=== PATIENT | female | born 1950 | race Caucasian/White ===

== ENCOUNTER 2020-07-08 08:26 | Outpatient (REF) | payer MEDICARE, SELFPAY ==
[2020-07-08 11:20] LABS: MANUAL DIFF FLAG NO
[2020-07-08 11:29] LABS: Basophils Percent Auto 0.4 % (0-2); Eosinophils Absolute Auto 0.2 X10*3/uL (0.0-0.4); Eosinophils Percent Auto 3.9 % (0-4); Hematocrit 45.3 % (37-47); Hemoglobin 14.5 g/dl (12.0-16.0); Imm Gran Abs Auto 0.02 X10*3/uL (0.00-0.03); Imm Gran Pct Auto 0.4 % (0.0-0.4); Lymphocytes Absolute Auto 1.6 X10*3/uL (1.2-4.9); Lymphocytes Percent Auto 28.4 % (20-40); Mean Corpuscular Hemoglobin 29.4 pg (27.0-33.0); Mean Corpuscular Volume 91.7 fL (80-98); Mean Platelet Volume 9.4 fL (9.4-12.3); Monocytes Absolute Auto 0.5 X10*3/uL (0.1-1.2); Monocytes Percent Auto 8.8 % (2-11); Neutrophils Absolute Auto 3.3 X10*3/uL (2.0-8.3); Neutrophils Percent Auto 58.1 % (45-73); Platelet Count 238 X10*3/uL (160-400); Red Blood Count 4.94 X10*6/uL (4.20-5.50); Red Cell Distribution Width 13.3 % (11.0-16.0); White Blood Count 5.6 X10*3/uL (4.8-10.8)
[2020-07-08 11:58] LABS: Alanine Aminotransferase 34 U/L (0-31); Albumin Level 4.4 g/dL (3.5-5.0); Alkaline Phosphatase 96 U/L (39-117); Anion Gap 14 (12-20); Aspartate Amino Transferase 21 U/L (5-31); Bilirubin Total 0.7 mg/dL (0.0-1.0); Blood Urea Nitrogen 8 mg/dL (9-16); Calcium 9.8 mg/dL (8.4-10.2); Carbon Dioxide 29 mmol/L (22-29); Chloride 106 mmol/L (96-108); Estimated Glomerular Filt Rate > 60; Glucose Random 123 mg/dL (60-115); Potassium 4.7 mmol/l (3.3-5.1); Sodium 144 mmol/L (135-145); Total Protein 7.3 g/dL (6.5-8.0)
[2020-07-08 12:02] LABS: Estimated Average Glucose 146 mg/dL; Hemoglobin A1c % 6.7 %
== END 2020-07-08 08:27 | disposition home or self-care (01) ==
LOC: HO.HMGCLDS 08:26
PROVIDERS: PCP Internal Medicine; Visit Provider Internal Medicine
DX: E78.2 Mixed hyperlipidemia (principal); I10 Essential (primary) hypertension; E11.9 Type 2 diabetes mellitus without complications
CPT/HCPCS: 36415; 80053; 83036; 83735; 85025

== ENCOUNTER 2020-09-15 11:53 | Outpatient (REF) | payer MEDICARE, SELFPAY ==
[2020-09-15 14:42] LABS: Albumin Level 4.4 g/dL (3.5-5.0); Calcium 9.9 mg/dL (8.4-10.2); Estimated Glomerular Filt Rate > 60
[2020-09-15 15:05] LABS: Vitamin D 25-OH Total 44.1 ng/mL (>30)
[2020-09-16 15:16] LABS: Calcium, Ionized 5.5 mg/dL (4.8-5.6)
[2020-09-16 15:42] LABS: Calcium (PTHI) 10.4 mg/dL (8.6-10.4); PTHI 83 pg/mL (14-64)
== END 2020-09-15 11:54 | disposition home or self-care (01) ==
LOC: HO.HMGCLDS 11:53
PROVIDERS: PCP Internal Medicine; Visit Provider Internal Medicine
DX: E21.3 Hyperparathyroidism, unspecified (principal); E55.9 Vitamin D deficiency, unspecified; M85.80 Other specified disorders of bone density and structure, unspecified site
CPT/HCPCS: 36415; 82040; 82306; 82310; 82330; 82565; 83970

== ENCOUNTER 2020-11-29 08:34 | Outpatient (REF) | payer MEDICARE, SELFPAY ==
[2020-11-29 11:14] LABS: MANUAL DIFF FLAG NO
[2020-11-29 11:15] LABS: Glucose Urine UA NEG (NEG); Leukocyte Esterase Urine 2+ (NEG); Nitrite Urine NEG (NEG); Urine Blood NEG (NEG); Urine Ketones NEG (NEG); Urine Protein NEG (NEG-TRACE)
[2020-11-29 11:16] LABS: Appearance Urine HAZY; Color Urine STRAW
[2020-11-29 11:31] LABS: Amorphous Sediment Urine 1+ /LPF; Bacteria Urine TRACE /LPF; Calcium Oxalate Crystals Urine 3+ /LPF; RBC Urine 0 /HPF (0); Renal Epithelial Cells Urine TRACE /LPF; Squamous Epithelial Cell Urine TRACE /LPF
[2020-11-29 11:35] LABS: Basophils Percent Auto 0.3 % (0-2); Eosinophils Absolute Auto 0.2 X10*3/uL (0.0-0.4); Eosinophils Percent Auto 2.7 % (0-4); Hematocrit 44.7 % (37-47); Hemoglobin 14.7 g/dl (12.0-16.0); Imm Gran Abs Auto 0.02 X10*3/uL (0.00-0.03); Imm Gran Pct Auto 0.3 % (0.0-0.4); Lymphocytes Absolute Auto 1.8 X10*3/uL (1.2-4.9); Lymphocytes Percent Auto 24.5 % (20-40); Mean Corpuscular HGB Conc 32.9 g/dl (31.0-35.0); Mean Corpuscular Volume 91.2 fL (80-98); Mean Platelet Volume 9.3 fL (9.4-12.3); Monocytes Absolute Auto 0.6 X10*3/uL (0.1-1.2); Monocytes Percent Auto 8.4 % (2-11); Neutrophils Absolute Auto 4.6 X10*3/uL (2.0-8.3); Neutrophils Percent Auto 63.8 % (45-73); Platelet Count 233 X10*3/uL (160-400); Red Cell Distribution Width 13.1 % (11.0-16.0); White Blood Count 7.1 X10*3/uL (4.8-10.8)
[2020-11-29 11:38] LABS: Estimated Average Glucose 143 mg/dL; Hemoglobin A1c % 6.6 %
[2020-11-29 11:41] LABS: Creatinine Urine 80.73 mg/dL; Microalbum/Creatinine Ratio Ur 32.2 ug/mg cr; Total Protein Urine Random 16 mg/dL (<12)
[2020-11-29 11:58] LABS: Thyroid Stimulating Hormone 2.36 uIU/mL (0.32-4.0)
[2020-11-29 11:59] LABS: Alanine Aminotransferase 25 U/L (0-31); Albumin Level 4.5 g/dL (3.5-5.0); Alkaline Phosphatase 109 U/L (39-117); Anion Gap 14 (12-20); Aspartate Amino Transferase 18 U/L (5-31); Bilirubin Total 0.5 mg/dL (0.0-1.0); Blood Urea Nitrogen 8 mg/dL (9-16); Calcium 10.3 mg/dL (8.4-10.2); Carbon Dioxide 29 mmol/L (22-29); Chloride 104 mmol/L (96-108); Cholesterol 136 mg/dL; Estimated Glomerular Filt Rate > 60; Glucose Fasting 121 mg/dL (60-99); HDL Cholesterol 55 mg/dL; LDL Cholesterol Calculated 49 mg/dl; Potassium 4.2 mmol/L (3.3-5.1); Sodium 143 mmol/L (135-145); Total Protein 7.6 g/dL (6.5-8.0); Triglycerides 163 mg/dL
[2020-11-29 12:04] LABS: Vitamin B12 286 pg/mL (200-900)
== END 2020-11-29 08:35 | disposition home or self-care (01) ==
LOC: HO.HMGCLDS 08:34
PROVIDERS: Visit Provider Internal Medicine
DX: I10 Essential (primary) hypertension (principal); E11.9 Type 2 diabetes mellitus without complications; R53.81 Other malaise; R53.83 Other fatigue; E78.2 Mixed hyperlipidemia
CPT/HCPCS: 36415; 80053; 80061; 81001; 82043; 82607; 83036; 84156; 84443; 85025

== ENCOUNTER → 2021-01-24 12:54 | Outpatient (BNVA) | payer MEDICARE, SELFPAY | PROVIDERS: PCP Internal Medicine; Referring Provider Internal Medicine; Visit Provider Internal Medicine Cardiovascular Disease | DX: I20.8 Other forms of angina pectoris (principal); I25.10 Atherosclerotic heart disease of native coronary artery without angina pectoris | CPT/HCPCS: 93005; 99212 ==

== ENCOUNTER 2021-04-25 14:20 | Outpatient (REF) | payer MEDICARE, SELFPAY | END 2021-04-25 14:21 | disposition home or self-care (01) | LOC: HO.LNP 14:20 | PROVIDERS: Visit Provider Internal Medicine | DX: Z20.822 Contact with and (suspected) exposure to COVID-19 (principal); J06.9 Acute upper respiratory infection, unspecified | CPT/HCPCS: U0003; U0005 ==

== ENCOUNTER 2021-05-08 12:29 | Emergency (ER) | payer MEDICARE, SELFPAY ==
--- NOTE | ~2021-05-08 | XR_ITS ---
EXAMINATION: LEFT HAND AND WRIST X-RAY CLINICAL INFORMATION: Post reduction COMPARISON: Previous x-ray from earlier the same day TECHNIQUE: 3 views of the left hand and wrist FINDINGS: There is an impacted transverse fracture of the left distal radius. There is dorsal angulation of the distal radius with respect to the more proximal shaft. Alignment appears unchanged. There is a comminuted minimally displaced ulnar styloid fracture that appears unchanged. The bones are osteopenic. There are degenerative changes at the first LONGTERM joint and trapezoid trapezium scaphoid joints. There are are vascular clips in the forearm. There is soft tissue swelling adjacent to the fractures. There is a new overlying cast or splint. XR/XR hand wrist LT IMPRESSION: Left distal radius and ulnar styloid fractures. No appreciable change from earlier exam.
--- NOTE | ~2021-05-08 | XR_ITS ---
EXAMINATION: LEFT HAND/WRIST. CLINICAL INFORMATION: Fall. COMPARISON: None TECHNIQUE: 4 views. FINDINGS: There is a distal radial fracture with dorsal angulation. No dislocation. Also visualized is displaced ulnar styloid process fracture. There are surgical akila along the medial radius from previous vascular intervention. There is moderate soft tissue swelling. XR/XR hand wrist LT IMPRESSION: Colles fracture with dorsal angulation. Displaced ulnar styloid process fracture. Moderate wrist soft tissue swelling.
[2021-05-08 13:04] VITALS: BP 123/48; BP 154/77; PULSE 74; PULSE 82; RESP 18; TEMP 36.6; O2SAT 92; O2SAT 93; BMI 30.8
[2021-05-08] MEDS: Ondansetron ODT 4 MG TAB.RAPDIS TRANSLINGU (13:09)
--- NOTE | 2021-05-08 13:33 | PC.NURSE ---
patient arrives to ED from home with . Patient called ambulance for and while assisting with and EMS, patient tripped and fell back on her wrist. L. wrist deformity. EMS gave patient pain medication, patient now nauseous with vomiting. ODT zofran given with good effect. Patient resting safely.
[2021-05-08] MEDS: oxyCODONE HCl Immed Release 5 MG TABLET PO (14:40)
[2021-05-08 14:43] VITALS: BP 156/56; PULSE 88; RESP 18; TEMP 36.1; O2SAT 94
[2021-05-08] MEDS: Lidocaine HCl 1 % MPF 5 ML VIAL SUBCUT (15:10)
--- NOTE | 2021-05-08 15:50 | ED_ITS ---
HPI - Extremity Problem General Chief complaint: Extremity Injury, Upper Stated complaint: MECH FALL L WRIST FX, +COVID Time Seen by Provider: 05/08/21 12:46 Source: patient Mode of arrival: ambulatory History of Present Illness HPI Narrative: 70-year-old female with a past medical history of CAD, HTN, CABG, cardiac catheterization, hyperlipidemia, presenting to the ED complaining of left wrist pain, deformity, and swelling s/p trip and fall at home with outstretched hand while assisting her with EMS. Reports fell backwards on left arm, denies head trauma or LOC. Reports associated paresthesias in left hand. Denies injury to the area MD Complaint: extremity pain and extremity swelling Related Data Home Medications Medication Instructions Recorded Confirmed alprazolam 1 mg tablet 1 mg PO BID PRN 01/24/21 01/24/21 amlodipine 5 mg tablet 5 mg PO DAILY 01/24/21 01/24/21 ascorbate calcium (vitamin C) 500 500 mg PO BID 01/24/21 01/24/21 mg tablet aspirin 81 mg tablet,delayed 81 mg PO DAILY 01/24/21 01/24/21 release (Adult Aspirin Regimen) losartan 50 mg tablet 50 mg PO BID 01/24/21 01/24/21 metformin 500 mg tablet,extended 500 mg PO BID 01/24/21 01/24/21 release 24 hr metoprolol tartrate 25 mg tablet 25 mg PO BID 01/24/21 01/24/21 rosuvastatin 20 mg tablet 20 mg PO BEDTIME 01/24/21 01/24/21 Previous Rx's Medication Instructions Recorded isosorbide mononitrate 30 mg 30 mg PO DAILY #90 tab 11/11/20 tablet,extended release 24 hr azithromycin 250 mg tablet See Rx Instructions PO .COMPLEX #6 04/25/21 (Zithromax) tab hydrocodone 5 mg-acetaminophen 325 1 tab PO Q8H PRN 3 Days #9 tab 05/08/21 mg tablet ibuprofen 800 mg tablet 800 mg PO Q8H PRN #14 tab 05/08/21 Allergies Allergy/AdvReac Type Severity Reaction Status Date / Time cimetidine [From [facility]] Allergy Unknown HIVES Verified 04/25/21 10:11 Review of Systems Review of Systems: Constitutional: No Fever, No Chills ENT/Mouth: No Ear Pain, No Nasal Congestion, No sore throat, No Rhinorrhea, No Swallowing Difficulty Cardiovascular: No Chest Pain, No SOB Respiratory: No Cough Gastrointestinal: No Nausea, No Vomiting, No Constipation, No Abdominal pain Genitourinary: No Dysuria, No Urinary Frequency, No Flank Pain Musculoskeletal: + joint pain, No Myalgias, + Joint Swelling Skin: No Skin Lesions, No rash Neuro: No Weakness, No Numbness, No Paresthesias Yes all other systems are reviewed and are negative [facility] Past Medical History Attestation statement: The following information was validated with the patient. Medical History CAD (coronary artery disease) Exertional angina HTN (hypertension) Hyperlipidemia Surgical History Hx of CABG Hx of cardiac cath Hx of colonoscopy Family History Family History Father CVD (cardiovascular disease) Mother No problems noted. Brother CVD (cardiovascular disease) Social History Social History Advance Directives: No Advance Directives Information Provided: No Physical Exam Vital Signs: Vital Signs: Last Vital Signs Temp 97 F 05/08/21 14:43 Pulse 88 05/08/21 14:43 Resp 18 05/08/21 14:43 BP 156/56 H 05/08/21 14:43 Pulse Ox 94 05/08/21 14:43 Body Mass Index 30.8 Const: General: cooperative and healthy appearing Orientation/conscious ness: patient oriented x3 Limitations: no limitations HENMT: Head: Yes normal to inspection Ears: hearing grossly normal bilaterally General nose exam: Normal external nose present Face and sinus: Yes normal facial exam Eyes: General: appearance normal, both eyes and all related structures EOM: EOMs intact bilaterally Neck: Neck: Yes normal visual inspection and Yes no meningeal signs Resp: Effort & Inspection: normal respiratory effort and no respiratory distress Cardio: Rate: regular rate Peripheral pulses: radial pulses present GI: Inspection: Yes normal to inspection Palpation (GI): Soft to palpation Skin: Rashes: no rashes Wounds: no wounds Neuro: General: patient oriented x3 and no meningeal signs Gait exam (N euro): Normal gait present Extrem: Other: Left wrist with notable deformity/swelling and tenderness to palpation neurovascularly intact. Sensation intact to light touch. Left elbow nontender. Left shoulder nontender Course Course Course Narrative: XR hand wrist LT IMPRESSION: Colles fracture with dorsal angulation. Displaced ulnar styloid process fracture. Moderate wrist soft tissue swelling. -155--hand held in traction with [place] finger traps with weights then reduction attempted > sugar-tong splint applied & sling applied XR hand wrist LT IMPRESSION: Left distal radius and ulnar styloid fractures. No appreciable change from earlier exam. --discussed with orthopedics, Dr. España, patient follow-up in Orthopedic fracture Clinic tomorrow or Saturday MDM - Extremity (Nontraumatic) MDM Narrative Medical decision making narrative: 70-year-old female with a past medical h istory of CAD, HTN, CABG, cardiac catheterization, hyperlipidemia, presenting to the ED complaining of left wrist pain, deformity, and swelling s/p trip and fall at home with outstretched hand while assisting her with EMS. On exam VSS, NAD, physical exam as above, concern for fracture. Will obtain x-rays Discharge Plan Discharge Clinical Impression: Distal radius fracture, left Qualifiers: Encounter type: initial encounter Fracture type: closed Fracture morphology: unspecified fracture morphology Qualified Code(s): S52.502A - Unspecified fracture of the lower end of left radius, initial encounter for closed fracture Ulna styloid fracture, closed Qualifiers: Encounter type: initial encounter Fracture alignment: displaced Laterality: left Qualified Code(s): S52.612A - Displaced fracture of left ulna styloid process, initial encounter for closed fracture Patient Disposition: Home, Self-Care Instructions: Wrist Fracture in Adults (ED) Additional Instructions: You have a fracture of your wrist You need to follow-up in the Orthopedic fracture Clinic tomorrow or Saturday, call to make an appointment Ice and elevate your arm Treat splint like a cast, do not get wet, keep dry, keep clean Ibuprofen will help with pain/inflammation [place] as an opiate pain medication, take only when pain is severe for the next 3 days If her pain persists or worsens/becomes unbearable, your fingers become very swollen/numb, please return to the ED Prescriptions: New ibuprofen 800 mg tablet 800 mg PO Q8H PRN (Reason: pain) Qty: 14 RF: 0 hydrocodone-acetaminophen 5-325 mg tablet 1 tab PO Q8H PRN (Reason: pain, severe) 3 Days Qty: 9 RF: 0 No Action isosorbide mononitrate 30 mg tablet extended release 24 hr 30 mg PO DAILY Qty: 90 RF: 3 azithromycin [Zithromax] 250 mg tablet See Rx Instructions PO .COMPLEX Qty: 6 RF: 0 losartan 50 mg tablet 50 mg PO BID RF: 0 metoprolol tartrate 25 mg tablet 25 mg PO BID RF: 0 amlodipine 5 mg tablet 5 mg PO DAILY RF: 0 alprazolam 1 mg tablet 1 mg PO BID PRNRF: 0 rosuvastatin 20 mg tablet 20 mg PO BEDTIME RF: 0 metformin 500 mg tablet extended release 24 hr 500 mg PO BID RF: 0 aspirin [Adult Aspirin Regimen] 81 mg tablet,delayed release (DR/EC) 81 mg PO DAILY RF: 0 ascorbate calcium (vitamin C) 500 mg tablet 500 mg PO BID RF: 0 Referrals: Prasanth España MD [Physician] - 1 day
== END 2021-05-08 18:51 | disposition home or self-care (01) ==
PROVIDERS: Emergency Provider Emergency Medicine Emergency Medical Services; PCP Internal Medicine
DX: S52.502A Unspecified fracture of the lower end of left radius, initial encounter for closed fracture (principal); S52.612A Displaced fracture of left ulna styloid process, initial encounter for closed fracture; M25.532 Pain in left wrist; I25.10 Atherosclerotic heart disease of native coronary artery without angina pectoris; I10 Essential (primary) hypertension; W01.0XXA Fall on same level from slipping, tripping and stumbling without subsequent striking against object, initial encounter; Y93.9 Activity, unspecified; Y92.9 Unspecified place or not applicable; Y99.9 Unspecified external cause status; Z79.899 Other long term (current) drug therapy
CPT/HCPCS: 29105; 73110; 73130; 99284

== ENCOUNTER → 2021-05-09 13:52 | Outpatient (BNVA) | payer MEDICARE, SELFPAY | PROVIDERS: Visit Provider Orthopaedic Surgery | DX: S52.502A Unspecified fracture of the lower end of left radius, initial encounter for closed fracture (principal) | CPT/HCPCS: 99202 ==

== ENCOUNTER 2021-05-11 05:56 | Day surgery (SDC) | payer MEDICARE, SELFPAY ==
--- NOTE | 2021-05-10 11:49 | HO.ANESPROP2 ---
Documented by User: Nessa Damon NP 05/10/21 11:51 HPI - Anesthesia Eval Consult details Narrative: 70yo F for Left Radius Distal Fracture ORIF Cardiac cleared at [facility] Active Problems Active Problems: All Active Problems (Updated 05/09/21 @ 14:58 by Shala Purdy MD) Distal radius fracture, left (Acute) Upper respiratory tract infection (Acute) Hyperlipidemia (Acute) HTN (hypertension) (Acute) CAD (coronary artery disease) (Acute) Exertional angina (Acute) Past Medical History Medical History (Updated 05/11/21 @ 06:29 by Cami Rahman RN) CAD (coronary artery disease) Diabetes Exertional angina HTN (hypertension) Hyperlipidemia Family History Family History Father CVD (cardiovascular disease) Mother No problems noted. Brother CVD (cardiovascular disease) Surgical History Surgical History Hx of CABG Hx of cardiac cath Hx of colonoscopy Social History Social History Patient Tobacco Use Status: Never used Tobacco Use of substances other than those prescribed or required for medical reasons: No Are you DNR?: Yes Advance Directives: No Advance Directives Information Provided: Yes Meds Allergies Allergy/AdvReac Type Severity Reaction Status Date / Time cimetidine [From [facility]] Allergy Unknown HIVES Verified 04/25/21 10:11 Home Medications Medication Instructions Recorded Confirmed Last Taken Type alprazolam 1 mg tablet 1 mg PO BID PRN 01/24/21 01/24/21 Unknown History amlodipine 5 mg tablet 5 mg PO DAILY 01/24/21 01/24/21 Unknown History ascorbate calcium (vitamin C) 500 500 mg PO BID 01/24/21 01/24/21 Unknown History mg tablet aspirin 81 mg tablet,delayed 81 mg PO DAILY 01/24/21 01/24/21 Unknown History release (Adult Aspirin Regimen) losartan 50 mg tablet 50 mg PO BID 01/24/21 01/24/21 Unknown History metformin 500 mg tablet,extended 500 mg PO BID 01/24/21 01/24/21 Unknown History release 24 hr metoprolol tartrate 25 mg tablet 25 mg PO BID 01/24/21 01/24/21 Unknown History rosuvastatin 20 mg tablet 20 mg PO BEDTIME 01/24/21 01/24/21 Unknown History Exam Exam Date and Time: May 10, 2021 1149 Pertinent Lab Results Pertinent Lab Results: Laboratory Tests 11/29/20 11/29/20 08:45 08:45 WBC 7.1 Hgb 14.7 Hct 44.7 Plt Count 233 Sodium 143 Potassium 4.2 Chloride 104 Carbon Dioxide 29 BUN 8 L Creatinine 0.64 Narrative Narrative: EKG 01/2021 sinus bradycardia with incomplete right bundle-branch block otherwise normal EKG Assessment and Plan Assessment Anesthesia Assessment: Chart Reviewed Documented by User: Jesus Paz MD 05/11/21 08:14 [facility] Past Medical History Medical History (Updated 05/11/21 @ 06:29 by Cami Rahman RN) CAD (coronary artery disease) Diabetes Exertional angina HTN (hypertension) Hyperlipidemia Family History Family History Father CVD (cardiovascular disease) Mother No problems noted. Brother CVD (cardiovascular disease) Family history of problems with anesthesia: No Surgical History Surgical History Hx of CABG Hx of cardiac cath Hx of colonoscopy History of Problems with Anesthesia: No Social History Social History Patient Tobacco Use Status: Never used Tobacco Use of substances other than those prescribed or required for medical reasons: No Are you DNR?: Yes Advance Directives: No Advance Directives Information Provided: Yes Meds Allergies Allergy/AdvReac Type Severity Reaction Status Date / Time cimetidine [From [facility]] Allergy Unknown HIVES Verified 04/25/21 10:11 Home Medications Medication Instructions Recorded Confirmed Last Taken Type alprazolam 1 mg tablet 1 mg PO BID PRN 01/24/21 01/24/21 Unknown History amlodipine 5 mg tablet 5 mg PO DAILY 01/24/21 01/24/21 Unknown History ascorbate calcium (vitamin C) 500 500 mg PO BID 01/24/21 01/24/21 Unknown History mg tablet aspirin 81 mg tablet,delayed 81 mg PO DAILY 01/24/21 01/24/21 Unknown History release (Adult Aspirin Regimen) losartan 50 mg tablet 50 mg PO BID 01/24/21 01/24/21 Unknown History metformin 500 mg tablet,extended 500 mg PO BID 01/24/21 01/24/21 Unknown History release 24 hr metoprolol tartrate 25 mg tablet 25 mg PO BID 01/24/21 01/24/21 Unknown History rosuvastatin 20 mg tablet 20 mg PO BEDTIME 01/24/21 01/24/21 Unknown History Exam Airway TM Dist: >3cm Neck ROM: Full Denture: Upper Partial: Lower Heart: RRR Assessment and Plan Assessment Anesthesia Assessment: Anesthesia Plan Discussed Final Anesthetic Review Family History of Problems with Anesthesia: No History of Problems with Anesthesia: No NPO: Yes ASA Class: III Final Preanesthetic Review: No Changes in Pt Med Stat, Meds/Allgs Chart Reviewed, Consent Obtained/Reviewed and Anes Risks/Benef Reviewed Patient Risk: Intermediate Procedure Risk: Low Anesthetic Plan Anesthetic Plan: GA and Regional Block Disposition: Standard PACU
[2021-05-11] VITALS (11 sets, daily range): BP systolic 102–169; BP diastolic 36–55; PULSE 57–78; RESP 16; TEMP 36.2–37.1; O2SAT 89–97; BMI 30.2
--- NOTE | ~2021-05-11 | FL_ITS ---
EXAMINATION: XR FLUOROSCOPY WITH IMAGES CLINICAL INFORMATION: Distal radial fracture. COMPARISON: None. TECHNIQUE: Fluoroscopy performed by Dr. Gurwinder Last.. Fluoroscopy time: 63.5 seconds DAP: [id number] Images: 2 FINDINGS: The distal radial fracture is alignment status post stabilized with volar metallic plate and screws with a fracture fragment in alignment. There are surgical kiala along the radial aspect from previous intervention. FL/FL guidance in OR IMPRESSION: Stabilized distal radial fracture in alignment status post ORIF with volar metallic plate and screws.
[2021-05-11 06:37] LABS: Glucose, Whole Blood 135 mg/dL (60-115)
[2021-05-11] MEDS: Lactated Ringers 1,000 ML 100 ML IVCONT (06:46)
--- NOTE | 2021-05-11 07:53 | MHC.SHP ---
Pre-Procedural Eval Section A Date of Service: 05/11/21 The patient is an INPATIENT: No Changes since office visit: No Cold of Flu in the past 2 weeks, No New Medical Problems, No Changes in Medication and No Patient answered all questions The History & Physical has been completed within 30 days and I have reviewed it.: Yes Section B Chief Complaint: fx of lower end left radius Allergies: Allergies Allergy/AdvReac Type Severity Reaction Status Date / Time [facility] Allergy Unknown HIVES Verified 04/25/21 10:11 Plan I have reviewed the history and physical and performed a pertinent physical examination on my patient. No changes have occurred unless specified.
--- NOTE | 2021-05-11 07:53 | P.OP_ITS ---
Operative Note Operative Note Date of Service: 05/11/21 Narrative: Operative Note Narrative: Preop diagnosis: 1. Left Distal radius fracture Postop diagnosis: Same Procedure: 1. Left Distal radius fracture open reduction internal fixation, two-part intra-articular Surgeon: Shala Purdy MD Anesthesia: Mac plus regional block Findings: Intra-articular split between the radial styloid and the lunate facet. Implants: A 3 hole standard Accu Med volar locking plate, with 5 X 2.3 mm locking pegs/screws, and 3 3.5 mm cortical screws Tourniquet time: 55 minutes EBL: 5.0 ml Specimen: None Drains: None Complications: None Disposition: Brought to the recovery room in stable condition Plan: Follow-up in 10-14 days for wound check, suture removal and postop radiographs The patient will be placed in a volar wrist splint. Encouraged no lifting of anything heavier than a cell phone. Please encourage active and passive range of motion of the digits. Follow-up at 4-5 weeks postop for repeat radiographs. Indications: The patient is a 70 year old woman with a left distal radius fracture . The risks and benefits of operative treatment, including but not limited to risk of damage to blood vessels, nerves, tendons, infection, recurrence, persistent pain or numbness, incomplete resolution of preoperative symptoms, or need for further surgery were discussed with the patient and they wished to proceed with surgery. Procedure: Once consent was obtained patient was brought back to the operating suite and placed in the operating table in a supine position. A regional block was performed by the anesthesia team. Perioperative antibiotics and anesthesia was administered by the anesthesia team. A tourniquet was applied to the proximal aspect of the left upper extremity and the limb was prepped and draped in a standard surgical fashion. The limb was elevated exsanguinated with Esmarch bandage and the tourniquet inflated to 250 mm of mercury for a total tourniquet time of 55 minutes. The FluoroScan was used throughout the case to assess our reduction, and facilitate implant placement. A gentle closed reduction was 1st performed on the patient's left distal radius fracture. Was assessed radiographically before proceeding with the reduction internal fixation. I then made an 8 cm longitudinal incision over the distal aspect of the flexor carpi radialis tendon. The incision was made through the skin to the subcutaneous tissue using a 15. Blade. Then carefully dissected down to flexor carpi radialis tendon she tenotomy scissors. The FCR tendon sheath was then incised longitudinally using tenotomy scissors under direct visualization. The FCR tendon was then retracted ulnarly. I then made a longitudinal incision in the volar forearm fascia through the floor of FCR tendon sheath using tenotomy scissors under direct vis ualization. I identified the interval between the radial artery and the flexor tendons. This interval was developed further with my index finger, releasing some of the muscular fibers of the flexor pollicis longus. A dull weatlander retractor was then placed. I then created an ulnarly based flap of the pronator quadratus by releasing the radial and distal edges using a 15. Blade. A Espinal elevator was used to elevate the pronator quadratus from the volar surface of the distal radius. This then revealed to us our distal radius fracture. Some of the pronator quadratus muscle was caught in the fracture. This was cleared using small rongeur. There was also an intra-articular longitudinal split between the radial styloid and the lunate facet. An open reduction was then performed on our distal radius fracture. I then placed a short standard 3 hole Accu Med volar locking plate on the volar surface of the distal radius. I placed a single K-wire through the distal aspect of the plate and into the distal radius. This was assessed using fluoroscopic images. I was satisfied with the placement of our plate. I then placed 5 X 2.3 mm locking screws/pegs in the distal aspect of the plate and distal radius by 1st drilling bicortically with a 1.8 mm drill bit, measuring with a depth gauge, and placing the appropriate length locking screws/pegs. The placement of our plate and screws was then assessed again using fluoroscopic images. The once satisfied with the placement of the volar locking plate and screws on the distal aspect of the distal radius, the plate was then reduced to the shaft of the radius. I then placed 3 3.5 mm cortical screws to the proximal aspect of the plate and into the shaft of the radius. This was done by 1st drilling bicortically with a 2.8 mm drill bit, measuring with a depth gauge, and placing the appropriate length screw. Final radiographs were then obtained. The DRUJ was assessed and found to be stable on exam. I was satisfied with our reduction and placement of all implants. At this point the wound was irrigated with normal saline. The pronator quadratus was reduced back over the volar locking plate using some 3-0 Vicryl suture material. The tourniquet was then deflated and hemostasis was obtained with a brief period of local pressure and bipolar monopolar electrocautery. The subcutaneous layer was then reapproximated using some 4-0 Vicryl suture, and the skin edges were reapproximated using some 5 0 Prolene suture. The wound was then infiltrated with some 1% lidocaine with epinephrine postop pain control. A sterile dressing and a short dorsal splint allowing for active flexion and extension of the digits was applied. The patient appears to have tolerated the procedure well and with no complications. All digits were well vascularized conclusion of the case.
[2021-05-11 09:58] LABS: Glucose, Whole Blood 142 mg/dL (60-115)
== END 2021-05-11 13:15 | disposition home or self-care (01) ==
LOC: HO.SSS 05:57
PROVIDERS: PCP Internal Medicine; Visit Provider Orthopaedic Surgery
PROC: (CPT 25608; principal; 2021-05-11 07:30)
DX: S52.572A Other intraarticular fracture of lower end of left radius, initial encounter for closed fracture (principal); I10 Essential (primary) hypertension; I25.118 Atherosclerotic heart disease of native coronary artery with other forms of angina pectoris; Z79.82 Long term (current) use of aspirin; Z79.899 Other long term (current) drug therapy; W19.XXXA Unspecified fall, initial encounter; Y93.9 Activity, unspecified; Y92.9 Unspecified place or not applicable; Y99.9 Unspecified external cause status
CPT/HCPCS: 25608; 82947; C1713; C1769; J0690; J1100; J2250; J2370; J2405; J3010

== ENCOUNTER 2021-05-17 07:49 | Outpatient (REF) | payer MEDICARE, SELFPAY ==
[2021-05-17 11:28] LABS: MANUAL DIFF FLAG NO
[2021-05-17 11:43] LABS: Basophils Percent Auto 0.2 % (0-2); Eosinophils Absolute Auto 0.1 X10*3/uL (0.0-0.4); Eosinophils Percent Auto 2.2 % (0-4); Hematocrit 41.3 % (37-47); Hemoglobin 13.3 g/dl (12.0-16.0); Imm Gran Abs Auto 0.01 X10*3/uL (0.00-0.03); Imm Gran Pct Auto 0.2 % (0.0-0.4); Lymphocytes Absolute Auto 1.2 X10*3/uL (1.2-4.9); Lymphocytes Percent Auto 24.8 % (20-40); Mean Corpuscular HGB Conc 32.2 g/dl (31.0-35.0); Mean Corpuscular Volume 90.2 fL (80-98); Mean Platelet Volume 9.1 fL (9.4-12.3); Monocytes Absolute Auto 0.4 X10*3/uL (0.1-1.2); Monocytes Percent Auto 7.5 % (2-11); Neutrophils Absolute Auto 3.2 X10*3/uL (2.0-8.3); Neutrophils Percent Auto 65.1 % (45-73); Platelet Count 289 X10*3/uL (160-400); Red Blood Count 4.58 X10*6/uL (4.20-5.50); Red Cell Distribution Width 13.7 % (11.0-16.0); White Blood Count 4.9 X10*3/uL (4.8-10.8)
[2021-05-17 12:06] LABS: Estimated Average Glucose 146 mg/dL; Hemoglobin A1c % 6.7 %
[2021-05-17 12:18] LABS: Alanine Aminotransferase 23 U/L (0-31); Albumin Level 4.2 g/dL (3.5-5.0); Alkaline Phosphatase 99 U/L (39-117); Anion Gap 14 (12-20); Aspartate Amino Transferase 19 U/L (5-31); Bilirubin Total 0.8 mg/dL (0.0-1.0); Blood Urea Nitrogen 8 mg/dL (9-16); Calcium 10.1 mg/dL (8.4-10.2); Carbon Dioxide 23 mmol/L (22-29); Chloride 108 mmol/L (96-108); Estimated Glomerular Filt Rate > 60; Glucose Random 140 mg/dL (60-115); Potassium 4.3 mmol/L (3.3-5.1); Sodium 141 mmol/L (135-145); Total Protein 7.2 g/dL (6.5-8.0)
[2021-05-17 12:32] LABS: Vitamin B12 469 pg/mL (200-900)
== END 2021-05-17 07:50 | disposition home or self-care (01) ==
LOC: HO.HMGCLDS 07:49
PROVIDERS: PCP Internal Medicine; Visit Provider Internal Medicine
DX: I10 Essential (primary) hypertension (principal); E11.9 Type 2 diabetes mellitus without complications; E53.8 Deficiency of other specified B group vitamins
CPT/HCPCS: 36415; 80053; 82607; 83036; 85025

== ENCOUNTER 2021-05-23 12:16 | Outpatient (REF) | payer MEDICARE, SELFPAY ==
--- NOTE | ~2021-05-23 | XR_ITS ---
EXAMINATION: XR WRIST, LEFT CLINICAL INFORMATION: Fracture COMPARISON: Previous x-ray most recent April 2020 TECHNIQUE: PA, lateral, and oblique views of the left wrist. FINDINGS: There is a plate and screws transfixing the left distal radius fracture. Orthopedic hardware appears unchanged. Fracture is still seen. No appreciable bony callus formation is seen. There is a minimally displaced ulnar styloid fracture that is unchanged. There are degenerative changes at the first CORRECTION joint and trapezoid trapezium scaphoid joints. There surgical clips in the radial volar forearm. XR/XR wrist LT min 3V IMPRESSION: ORIF of left distal radius fracture. Distal radius and ulnar styloid fractures appear unchanged.
== END 2021-05-23 12:17 | disposition home or self-care (01) ==
LOC: HO.HOSX 12:16
PROVIDERS: PCP Internal Medicine; Visit Provider Orthopaedic Surgery
DX: S52.502D Unspecified fracture of the lower end of left radius, subsequent encounter for closed fracture with routine healing (principal)
CPT/HCPCS: 73110; 99212

== ENCOUNTER 2021-06-27 08:57 | Outpatient (REF) | payer MEDICARE, SELFPAY ==
--- NOTE | ~2021-06-27 | XR_ITS ---
EXAMINATION: XR WRIST, LEFT CLINICAL INFORMATION: Left wrist pain. Status post fracture. COMPARISON: 05/23/2021 and studies dating back to 05/08/2021. TECHNIQUE: PA, lateral, and oblique views of the left wrist. FINDINGS: There is no change in the appearance of hardware for fixation of the distal left radial fracture. There are some mild periosteal reaction present. There appears to be some degree of bony union of fracture fragments. No change in alignment is noted. No change in appearance of the ulnar styloid fracture is seen. Vascular clips are again noted about the volar radial aspect of the forearm. XR/XR wrist LT min 3V IMPRESSION: Healing distal radial fracture with no change in alignment or evidence of hardware fracture. No change in the appearance of displaced ulnar styloid fracture.
== END 2021-06-27 08:58 | disposition home or self-care (01) ==
LOC: HO.HOSX 08:57
PROVIDERS: Visit Provider Orthopaedic Surgery
DX: S52.502D Unspecified fracture of the lower end of left radius, subsequent encounter for closed fracture with routine healing (principal)
CPT/HCPCS: 73110; 99212

== ENCOUNTER 2021-09-14 09:23 | Outpatient (REF) | payer MEDICARE, SELFPAY ==
[2021-09-14 11:25] LABS: MANUAL DIFF FLAG NO
[2021-09-14 11:27] LABS: Basophils Percent Auto 0.2 % (0-2); Eosinophils Absolute Auto 0.1 X10*3/uL (0.0-0.4); Eosinophils Percent Auto 2.3 % (0-4); Hematocrit 44.8 % (37.0-47.0); Hemoglobin 14.3 g/dl (12.0-16.0); Imm Gran Abs Auto 0.02 X10*3/uL (0.00-0.03); Imm Gran Pct Auto 0.4 % (0.0-0.4); Lymphocytes Absolute Auto 1.6 X10*3/uL (1.2-4.9); Lymphocytes Percent Auto 30.5 % (20-40); Mean Corpuscular HGB Conc 31.9 g/dl (31.0-35.0); Mean Corpuscular Hemoglobin 29.2 pg (27.0-33.0); Mean Corpuscular Volume 91.6 fL (80.0-98.0); Mean Platelet Volume 9.4 fL (9.4-12.3); Monocytes Absolute Auto 0.4 X10*3/uL (0.1-1.2); Monocytes Percent Auto 8.4 % (2-11); Neutrophils Percent Auto 58.2 % (45-73); Platelet Count 228 X10*3/uL (160-400); Red Blood Count 4.89 X10*6/uL (4.20-5.50); Red Cell Distribution Width 12.9 % (11.0-16.0); White Blood Count 5.1 X10*3/uL (4.8-10.8)
[2021-09-14 11:37] LABS: Appearance Urine CLEAR; Color Urine YELLOW; Glucose Urine UA NEG (NEG); Leukocyte Esterase Urine NEG (NEG); Nitrite Urine NEG (NEG); Specific Gravity - Urine <= 1.005 (1.005-1.025); Urine Blood NEG (NEG); Urine Ketones NEG (NEG); Urine Protein NEG (NEG-TRACE)
[2021-09-14 11:44] LABS: Estimated Average Glucose 146 mg/dL; Hemoglobin A1c % 6.7 %
[2021-09-14 12:10] LABS: Creatinine Urine 35.15 mg/dL; Microalbumin Urine < 5.0 mg/L
== END 2021-09-14 09:24 | disposition home or self-care (01) ==
LOC: HO.HMGCLDS 09:23
PROVIDERS: Visit Provider Internal Medicine
DX: I10 Essential (primary) hypertension (principal); E11.9 Type 2 diabetes mellitus without complications; E78.2 Mixed hyperlipidemia; E21.3 Hyperparathyroidism, unspecified
CPT/HCPCS: 36415; 81003; 82043; 83036; 85025

== ENCOUNTER 2021-12-27 09:03 | Outpatient (REF) | payer MEDICARE, SELFPAY ==
[2021-12-27 11:40] LABS: MANUAL DIFF FLAG NO
[2021-12-27 11:43] LABS: Basophils Percent Auto 0.4 % (0-2); Eosinophils Absolute Auto 0.4 X10*3/uL (0.0-0.4); Eosinophils Percent Auto 6.5 % (0-4); Hematocrit 42.6 % (37.0-47.0); Hemoglobin 13.6 g/dl (12.0-16.0); Imm Gran Abs Auto 0.02 X10*3/uL (0.00-0.03); Imm Gran Pct Auto 0.4 % (0.0-0.4); Lymphocytes Absolute Auto 1.1 X10*3/uL (1.2-4.9); Lymphocytes Percent Auto 19.6 % (20-40); Mean Corpuscular HGB Conc 31.9 g/dl (31.0-35.0); Mean Corpuscular Hemoglobin 28.3 pg (27.0-33.0); Mean Corpuscular Volume 88.8 fL (80.0-98.0); Mean Platelet Volume 8.7 fL (9.4-12.3); Monocytes Absolute Auto 0.5 X10*3/uL (0.1-1.2); Neutrophils Absolute Auto 3.6 x10*3/uL (2.0-8.3); Neutrophils Percent Auto 64.1 % (45-73); Platelet Count 318 X10*3/uL (160-400); Red Cell Distribution Width 13.1 % (11.0-16.0); White Blood Count 5.6 X10*3/uL (4.8-10.8)
[2021-12-27 11:58] LABS: Appearance Urine HAZY; Color Urine YELLOW; Glucose Urine UA NEG (NEG); Leukocyte Esterase Urine 1+ (NEG); Nitrite Urine NEG (NEG); PH 6.5 (5.0-8.0); Specific Gravity - Urine 1.015 (1.005-1.025); Urine Blood NEG (NEG); Urine Ketones NEG (NEG); Urine Protein NEG (NEG-TRACE)
[2021-12-27 11:59] LABS: Estimated Average Glucose 151 mg/dL; Hemoglobin A1c % 6.9 %
[2021-12-27 12:15] LABS: Creatinine Urine 49.46 mg/dL; Microalbumin Urine < 5.0 mg/L; Total Protein Urine Random < 7 mg/dL (<12)
[2021-12-27 12:19] LABS: Thyroid Stimulating Hormone 1.44 uIU/mL (0.32-4.0); Vitamin D 25-OH Total 53.9 ng/mL (>30)
[2021-12-27 12:30] LABS: Alanine Aminotransferase 20 U/L (0-31); Alkaline Phosphatase 113 U/L (39-117); Anion Gap 13 (12-20); Aspartate Amino Transferase 18 U/L (5-31); Bilirubin Total 0.5 mg/dL (0.0-1.0); Blood Urea Nitrogen 7 mg/dL (9-16); Calcium 10.6 mg/dL (8.4-10.2); Carbon Dioxide 27 mmol/L (22-29); Chloride 106 mmol/L (96-108); Cholesterol 121 mg/dL; Estimated Glomerular Filt Rate > 60; Glucose Random 154 mg/dL (60-115); HDL Cholesterol 42 mg/dL; LDL Cholesterol Calculated 54 mg/dl; Potassium 4.2 mmol/L (3.3-5.1); Sodium 142 mmol/L (135-145); Total Protein 7.2 g/dL (6.5-8.0); Triglycerides 126 mg/dL
[2021-12-27 12:42] LABS: RBC Urine 0 /HPF (0); Squamous Epithelial Cell Urine 2+ /LPF
[2021-12-27 12:43] LABS: Amorphous Sediment Urine 1+ /LPF; Bacteria Urine TRACE /LPF
[2021-12-28 14:46] LABS: Calcium (PTHI) 10.1 mg/dL (8.6-10.4); PTHI 62 pg/mL (16-77)
== END 2021-12-27 09:04 | disposition home or self-care (01) ==
LOC: HO.HMGCLDS 09:03
PROVIDERS: PCP Internal Medicine; Visit Provider Internal Medicine
DX: E11.9 Type 2 diabetes mellitus without complications (principal); I10 Essential (primary) hypertension; R53.81 Other malaise; R53.83 Other fatigue; E78.00 Pure hypercholesterolemia, unspecified; E78.2 Mixed hyperlipidemia; E21.3 Hyperparathyroidism, unspecified
CPT/HCPCS: 36415; 80053; 80061; 81001; 81003; 82043; 82306; 83036; 83970; 84156; 84443; 85025

== ENCOUNTER → 2022-01-29 12:46 | Outpatient (BNVA) | payer MEDICARE, SELFPAY | PROVIDERS: PCP Internal Medicine; Referring Provider Internal Medicine; Visit Provider Internal Medicine Cardiovascular Disease | DX: I25.10 Atherosclerotic heart disease of native coronary artery without angina pectoris (principal); I10 Essential (primary) hypertension; Z79.82 Long term (current) use of aspirin; Z79.899 Other long term (current) drug therapy | CPT/HCPCS: 93005; 99212 ==

== ENCOUNTER 2022-04-05 08:57 | Outpatient (REF) | payer MEDICARE, SELFPAY ==
--- NOTE | ~2022-04-05 | MM_ITS ---
EXAMINATION: BONE DENSITOMETRY CLINICAL INDICATION: Osteopenia. COMPARISON: Baseline BD dated 02/29/2020. TECHNIQUE: Using a [employer] DXA System (software version: 13.1) manufactured by [employer], dual-energy x-ray absorptiometry was performed of the lumbar spine, left hip, and right forearm radius 33%. The images are of good technical quality. Summary results are attached. FINDINGS: AP SPINE L1-L4: Current: BMD 0.938 g/cm2, Z-score -0.6, T-score -2.0, osteopenia, 3.1% decrease from baseline (<5% change is not significant). Baseline: BMD 0.968 g/cm2. LEFT FEMUR, NECK: Current: BMD 0.609 g/cm2, Z-score -1.5, T-score -3.1, osteoporosis. Baseline: BMD 0.841 g/cm2. LEFT FEMUR, TOTAL: Current: BMD 0.647 g/cm2, Z-score -1.6, T-score -2.9, osteoporosis, 26.4% decrease from baseline (<5% change is not significant). Baseline: BMD 0.879 g/cm2. RIGHT FOREARM RADIUS 33%: BMD 0.621 g/cm2, Z-score -1.1, T-score -2.9, osteoporosis. Baseline: Not previously measured. IDENTIFIED RISK FACTORS: Menopause, hyperparathyroid, history of fracture (adult), Thiazide. HISTORY OF FRACTURE: Wrist. MEDICATIONS: Vitamin D. MM/XR DEXA axial skeleton IMPRESSION: 1. DIAGNOSIS: Osteoporosis based on the lowest T-score value of -3.1 in the femoral neck applying World Health Organization criteria. 2. 10-YEAR FRACTURE RISK PREDICTION, FRAX: According to the guidelines, FRAX calculation should only be performed on patients in the osteopenia bone density category. Therefore, FRAX was not performed on this patient. 3. Treatment Recommendations: NOF guidelines recommend consideration for treatment in postmenopausal women and men age 50 and older presenting with the following: -A hip or vertebral (clinical or morphometric) fracture. -T-score less than or equal to -2.5 at the femoral neck or spine after appropriate evaluation to exclude secondary causes. -Low bone mass at the hip or spine and a 10-year fracture probability by FRAX of greater than or equal to 3% for hip fracture or greater than or equal to 20% for major osteoporotic fracture based on the [place] adapted WHO algorithm. 4. Other Recommendations: All treatment decisions require clinical judgment and consideration of individual patient factors, including patient preferences, comorbidities, previous drug use, risk factors not captured in the FRAX model (e.g. frailty, falls, vitamin D deficiency, increased bone turnover, interval significant decline in bone density) and possible under or overestimation of fracture risk by FRAX. Additional medical evaluation for secondary cause of low bone mineral density may be appropriate. FUTURE SCAN RECOMMENDATION: People with diagnosed cases of osteoporosis or at high risk for fracture should have regular bone mineral density tests. For patients eligible for Medicare, routine testing is allowed once every 2 years. The testing frequency can be increased to one year for patients who have rapidly progressing disease, those who are receiving or discontinuing medical therapy to restore bone mass, or have additional risk factors.
--- NOTE | ~2022-04-05 | MM_ITS ---
EXAMINATION: MM SCREENING DIGITAL BREAST TOMOSYNTHESIS, BILATERAL CLINICAL INFORMATION: Screening. Asymptomatic. The lifetime risk of breast cancer based on the Tyrer-Cuzick Model is 3%. COMPARISON: Mammography: 07/02/2012, 04/06/2011 TECHNIQUE: Digital breast tomosynthesis is performed in both the craniocaudal and mediolateral oblique views along with computer-aided detection (CAD). Synthesized 2D images are generated from the tomosynthesis. FINDINGS: There are scattered areas of fibroglandular density (ACR BI-RADS breast composition Category b). There are no significant masses, abnormal calcifications, or other abnormalities. Parenchymal pattern is similar to prior studies. The axilla are unremarkable. There is a dermal lesion overlying the lower outer left breast and dermal lesion overlying the posterior upper inner left breast. MM/MM tomosynthesis screening BI IMPRESSION: No mammographic evidence of malignancy. ASSESSMENT: BI-RADS 2: Benign RECOMMENDATION: Routine annual mammography screening. This patient's information was entered into a reminder system with a target due date for their next mammogram.
== END 2022-04-05 08:58 | disposition home or self-care (01) ==
LOC: HO.MAMMO 08:57
PROVIDERS: PCP Internal Medicine; Visit Provider Internal Medicine
DX: Z12.31 Encounter for screening mammogram for malignant neoplasm of breast (principal); Z13.820 Encounter for screening for osteoporosis; M85.80 Other specified disorders of bone density and structure, unspecified site; E21.3 Hyperparathyroidism, unspecified; Z79.899 Other long term (current) drug therapy; Z78.0 Asymptomatic menopausal state
CPT/HCPCS: 77063; 77067; 77080

== ENCOUNTER 2022-04-19 08:19 | Outpatient (REF) | payer MEDICARE, SELFPAY ==
[2022-04-19 11:36] LABS: MANUAL DIFF FLAG NO
[2022-04-19 11:44] LABS: Basophils Percent Auto 0.3 % (0-2); Eosinophils Absolute Auto 0.2 X10*3/uL (0.0-0.4); Eosinophils Percent Auto 2.8 % (0-4); Hematocrit 45.1 % (37.0-47.0); Hemoglobin 14.4 g/dl (12.0-16.0); Imm Gran Abs Auto 0.02 X10*3/uL (0.00-0.03); Imm Gran Pct Auto 0.3 % (0.0-0.4); Lymphocytes Absolute Auto 1.8 X10*3/uL (1.2-4.9); Lymphocytes Percent Auto 29.3 % (20-40); Mean Corpuscular HGB Conc 31.9 g/dl (31.0-35.0); Mean Corpuscular Hemoglobin 28.7 pg (27.0-33.0); Mean Platelet Volume 9.5 fL (9.4-12.3); Monocytes Absolute Auto 0.4 X10*3/uL (0.1-1.2); Monocytes Percent Auto 7.3 % (2-11); Neutrophils Absolute Auto 3.6 x10*3/uL (2.0-8.3); Platelet Count 213 X10*3/uL (160-400); Red Blood Count 5.01 X10*6/uL (4.20-5.50); Red Cell Distribution Width 14.2 % (11.0-16.0)
[2022-04-19 11:52] LABS: Estimated Average Glucose 146 mg/dL; Hemoglobin A1c % 6.7 %
[2022-04-19 11:55] LABS: Alanine Aminotransferase 24 U/L (0-31); Albumin Level 4.3 g/dL (3.5-5.0); Alkaline Phosphatase 97 U/L (39-117); Anion Gap 15 (12-20); Aspartate Amino Transferase 21 U/L (5-31); Bilirubin Total 0.4 mg/dL (0.0-1.0); Blood Urea Nitrogen 11 mg/dL (9-16); Calcium 9.7 mg/dL (8.4-10.2); Carbon Dioxide 26 mmol/L (22-29); Chloride 105 mmol/L (96-108); Estimated Glomerular Filt Rate > 60; Glucose Random 143 mg/dL (60-115); Phosphorus 2.9 mg/dL (2.7-4.5); Potassium 4.6 mmol/L (3.3-5.1); Sodium 141 mmol/L (135-145); Total Protein 7.1 g/dL (6.5-8.0)
[2022-04-19 12:15] LABS: Creatinine Urine 35.76 mg/dL; Microalbumin Urine < 5.0 mg/L
[2022-04-19 12:20] LABS: Free T4 (Free Thyroxine) 1.09 ng/dL (0.71-1.85); Thyroid Stimulating Hormone 2.14 uIU/mL (0.32-4.0); Vitamin D 25-OH Total 48.4 ng/mL (>30)
[2022-04-20 13:12] LABS: Calcium (PTHI) 10.4 mg/dL (8.6-10.4); PTHI 91 pg/mL (16-77)
== END 2022-04-19 08:20 | disposition home or self-care (01) ==
LOC: HO.HMGCLDS 08:19
PROVIDERS: Absent Provider Surgery; PCP Internal Medicine; Visit Provider Internal Medicine
DX: E11.9 Type 2 diabetes mellitus without complications (principal); E21.3 Hyperparathyroidism, unspecified; M81.0 Age-related osteoporosis without current pathological fracture; I10 Essential (primary) hypertension
CPT/HCPCS: 36415; 80053; 82043; 82306; 83036; 83970; 84100; 84439; 84443; 85025

== ENCOUNTER 2022-09-05 09:05 | Outpatient (REF) | payer MEDICARE, SELFPAY ==
[2022-09-05 11:45] LABS: MANUAL DIFF FLAG NO
[2022-09-05 11:52] LABS: Basophils Percent Auto 0.5 % (0-2); Eosinophils Absolute Auto 0.2 X10*3/uL (0.0-0.4); Eosinophils Percent Auto 2.8 % (0-4); Hematocrit 42.5 % (37.0-47.0); Hemoglobin 13.7 g/dl (12.0-16.0); Imm Gran Abs Auto 0.02 X10*3/uL (0.00-0.03); Imm Gran Pct Auto 0.3 % (0.0-0.4); Lymphocytes Absolute Auto 1.8 X10*3/uL (1.2-4.9); Lymphocytes Percent Auto 29.4 % (20-40); Mean Corpuscular HGB Conc 32.2 g/dl (31.0-35.0); Mean Corpuscular Hemoglobin 29.7 pg (27.0-33.0); Mean Platelet Volume 9.6 fL (9.4-12.3); Monocytes Absolute Auto 0.4 X10*3/uL (0.1-1.2); Monocytes Percent Auto 7.3 % (2-11); Neutrophils Absolute Auto 3.6 x10*3/uL (2.0-8.3); Neutrophils Percent Auto 59.7 % (45-73); Platelet Count 210 X10*3/uL (160-400); Red Blood Count 4.62 X10*6/uL (4.20-5.50); Red Cell Distribution Width 13.4 % (11.0-16.0)
[2022-09-05 12:17] LABS: Alanine Aminotransferase 27 U/L (0-31); Albumin Level 4.2 g/dL (3.5-5.0); Alkaline Phosphatase 99 U/L (39-117); Anion Gap 9 (12-20); Aspartate Amino Transferase 19 U/L (5-31); Bilirubin Total 0.7 mg/dL (0.0-1.0); Blood Urea Nitrogen 10 mg/dL (9-16); Carbon Dioxide 31 mmol/L (22-29); Chloride 105 mmol/L (96-108); Cholesterol 154 mg/dL; Estimated Glomerular Filt Rate > 60; Glucose Random 134 mg/dL (60-115); HDL Cholesterol 57 mg/dL; LDL Cholesterol Calculated 70 mg/dl; Potassium 4.1 mmol/L (3.3-5.1); Sodium 141 mmol/L (135-145); Total Protein 6.9 g/dL (6.5-8.0); Triglycerides 136 mg/dL
[2022-09-05 12:37] LABS: Thyroid Stimulating Hormone 1.87 uIU/mL (0.32-4.0); Vitamin D 25-OH Total 30.7 ng/mL (>30)
[2022-09-06 13:48] LABS: Calcium (PTHI) 10.3 mg/dL (8.6-10.4); PTHI 74 pg/mL (16-77)
== END 2022-09-05 09:06 | disposition home or self-care (01) ==
LOC: HO.HMGCLDS 09:05
PROVIDERS: PCP Internal Medicine; Visit Provider Internal Medicine
DX: I10 Essential (primary) hypertension (principal); E78.2 Mixed hyperlipidemia; E21.3 Hyperparathyroidism, unspecified; F41.9 Anxiety disorder, unspecified; F32.A Depression, unspecified
CPT/HCPCS: 36415; 80053; 80061; 82306; 83970; 84443; 85025

== ENCOUNTER 2023-01-02 09:49 | Outpatient (REF) | payer MEDICARE, SELFPAY ==
[2023-01-02 12:18] LABS: Estimated Average Glucose 140 mg/dL; Hemoglobin A1c % 6.5 %
[2023-01-02 12:58] LABS: Alanine Aminotransferase 24 U/L (0-31); Albumin Level 4.2 g/dL (3.5-5.0); Alkaline Phosphatase 82 U/L (39-117); Anion Gap 10 (12-20); Aspartate Amino Transferase 22 U/L (5-31); Bilirubin Total 0.7 mg/dL (0.0-1.0); Blood Urea Nitrogen 8 mg/dL (9-16); Calcium 9.8 mg/dL (8.4-10.2); Carbon Dioxide 29 mmol/L (22-29); Chloride 107 mmol/L (96-108); Estimated Glomerular Filt Rate > 60; Glucose Random 140 mg/dL (60-115); Potassium 4.3 mmol/L (3.3-5.1); Sodium 142 mmol/L (135-145); Total Protein 6.8 g/dL (6.5-8.0)
[2023-01-02 17:17] LABS: Creatinine Urine 56.74 mg/dL; Microalbum/Creatinine Ratio Ur 17.6 ug/mg cr
== END 2023-01-02 09:50 | disposition home or self-care (01) ==
LOC: HO.HMGCLDS 09:49
PROVIDERS: PCP Internal Medicine; Visit Provider Internal Medicine
DX: I10 Essential (primary) hypertension (principal); E11.9 Type 2 diabetes mellitus without complications; I25.10 Atherosclerotic heart disease of native coronary artery without angina pectoris
CPT/HCPCS: 36415; 80053; 82043; 83036

== ENCOUNTER → 2023-01-29 12:51 | Outpatient (BNVA) | payer MEDICARE, SELFPAY | PROVIDERS: PCP Internal Medicine; Referring Provider Internal Medicine; Visit Provider Internal Medicine Cardiovascular Disease | DX: I25.10 Atherosclerotic heart disease of native coronary artery without angina pectoris (principal); I10 Essential (primary) hypertension | CPT/HCPCS: 93005; 99212 ==

== ENCOUNTER 2023-04-09 16:16 | Outpatient (REF) | payer MEDICARE, SELFPAY ==
--- NOTE | ~2023-04-09 | XR_ITS ---
EXAMINATION: XR SHOULDER, RIGHT CLINICAL INFORMATION: Right shoulder pain COMPARISON: None available. TECHNIQUE: AP external rotation, Grashey, scapular Y, and axillary views of the right shoulder. FINDINGS: There is no evidence of acute fracture, dislocation or changes of osteoarthritis. There is 1 cm calcification adjacent to the supraspinatus tendon most likely calcified tendinopathy and there is calcification inferior to the medial aspect of the right shoulder. XR/XR shoulder RT min 2V IMPRESSION: Calcified tendinopathy.
--- NOTE | ~2023-04-09 | XR_ITS ---
EXAMINATION: XR RIBS, RIGHT CLINICAL INFORMATION: Pain in the ribs on the right COMPARISON: 03/11/2019 TECHNIQUE: 3 views of the right ribs and single view of the chest were obtained. FINDINGS: Patient status post median sternotomy for CABG. Lungs are clear of low volume. Right rib cage revealed no fractures, specifically there are no abnormal findings in the lower ribs on the right corresponding to radiopaque marker XR/XR ribs RT min 3V w CXR1V IMPRESSION: No acute abnormalities in the right rib cage. No fracture seen
--- NOTE | ~2023-04-09 | XR_ITS ---
EXAMINATION: XR CERVICAL SPINE CLINICAL INFORMATION: Cervicalgia COMPARISON: None available. TECHNIQUE: 6 views of the cervical spine, inclusive of flexion and extension views, were obtained. FINDINGS: There is straightening of cervical lordosis with marginal spurring. The level of C5-C6 and C6-C7 and mild narrowing of neuroforamina on the right. Soft tissues unremarkable. XR/XR cervical spine 5V IMPRESSION: Mild degenerative changes with narrowing of neuroforamina on the right at the level of C5-C6 and C6-C7.
== END 2023-04-09 16:17 | disposition home or self-care (01) ==
LOC: HO.XRAY 16:16
PROVIDERS: PCP Internal Medicine; Visit Provider Internal Medicine
DX: R07.81 Pleurodynia (principal); M25.511 Pain in right shoulder; M54.2 Cervicalgia; W19.XXXD Unspecified fall, subsequent encounter
CPT/HCPCS: 71101; 72050; 73030

== ENCOUNTER 2023-04-16 10:10 | Outpatient (REF) | payer MEDICARE, SELFPAY ==
[2023-04-16 11:04] LABS: Alanine Aminotransferase 28 U/L (0-31); Albumin Level 4.2 g/dL (3.5-5.0); Alkaline Phosphatase 76 U/L (39-117); Anion Gap 12 (12-20); Aspartate Amino Transferase 23 U/L (5-31); Bilirubin Total 0.6 mg/dL (0.0-1.0); Blood Urea Nitrogen 9 mg/dL (9-16); Calcium 10.1 mg/dL (8.4-10.2); Carbon Dioxide 28 mmol/L (22-29); Chloride 105 mmol/L (96-108); Estimated Glomerular Filt Rate > 60; Glucose Random 136 mg/dL (60-115); Potassium 4.1 mmol/L (3.3-5.1); Sodium 141 mmol/L (135-145)
== END 2023-04-16 10:11 | disposition home or self-care (01) ==
LOC: HO.LAB 10:10
PROVIDERS: PCP Internal Medicine; Visit Provider Internal Medicine
DX: E11.9 Type 2 diabetes mellitus without complications (principal); I10 Essential (primary) hypertension
CPT/HCPCS: 36415; 80053

== ENCOUNTER 2023-06-13 09:00 | Outpatient (REF) | payer MEDICARE, SELFPAY ==
[2023-06-13 11:49] LABS: MANUAL DIFF FLAG NO
[2023-06-13 11:53] LABS: Appearance Urine Clear; Color Urine Yellow; Glucose Urine UA Negative (Negative); Leukocyte Esterase Urine Moderate (2+) (Negative); Nitrite Urine Negative (Negative); PH 6.5 (5.0-9.0); UMIC TRIGGER UACC YES; Urine Blood Negative (Negative); Urine Ketones Negative (Negative); Urine Protein Negative (Neg-Trace)
[2023-06-13 11:57] LABS: Bacteria Urine 1+ (None Seen); Hyaline Casts Urine 0-2 /LPF (0-2); RBC Urine 0-2 /HPF (0-2); UACC Culture Trigger YES
[2023-06-13 11:58] LABS: Basophils Percent Auto 0.2 % (0-2); Eosinophils Absolute Auto 0.2 X10*3/uL (0.0-0.4); Eosinophils Percent Auto 3.7 % (0-4); Hematocrit 43.2 % (37.0-47.0); Hemoglobin 13.9 g/dl (12.0-16.0); Imm Gran Abs Auto 0.03 X10*3/uL (0.00-0.03); Imm Gran Pct Auto 0.5 % (0.0-0.4); Lymphocytes Absolute Auto 1.5 X10*3/uL (1.2-4.9); Lymphocytes Percent Auto 24.5 % (20-40); Mean Corpuscular HGB Conc 32.2 g/dl (31.0-35.0); Mean Corpuscular Hemoglobin 28.9 pg (27.0-33.0); Mean Corpuscular Volume 89.8 fL (80.0-98.0); Mean Platelet Volume 8.9 fL (9.4-12.3); Monocytes Absolute Auto 0.4 X10*3/uL (0.1-1.2); Monocytes Percent Auto 6.2 % (2-11); Neutrophils Absolute Auto 4.1 x10*3/uL (2.0-8.3); Neutrophils Percent Auto 64.9 % (45-73); Platelet Count 253 X10*3/uL (160-400); Red Blood Count 4.81 X10*6/uL (4.20-5.50); Red Cell Distribution Width 13.3 % (11.0-16.0); White Blood Count 6.3 X10*3/uL (4.8-10.8)
[2023-06-13 12:03] LABS: Estimated Average Glucose 163 mg/dL; Hemoglobin A1c % 7.3 % (<6.0)
[2023-06-13 12:18] LABS: Alanine Aminotransferase 33 U/L (0-31); Albumin Level 4.1 g/dL (3.5-5.0); Alkaline Phosphatase 80 U/L (39-117); Anion Gap 12 (12-20); Aspartate Amino Transferase 33 U/L (5-31); Bilirubin Total 0.6 mg/dL (0.0-1.0); Blood Urea Nitrogen 8 mg/dL (9-16); Calcium 10.1 mg/dL (8.4-10.2); Carbon Dioxide 26 mmol/L (22-29); Chloride 106 mmol/L (96-108); Cholesterol 117 mg/dL (<200); Estimated Glomerular Filt Rate > 60; Glucose Random 158 mg/dL (60-115); HDL Cholesterol 39 mg/dL (>40); LDL Cholesterol Calculated 51 mg/dL (<100); Potassium 4.1 mmol/L (3.3-5.1); Sodium 140 mmol/L (135-145); Total Protein 7.5 g/dL (6.5-8.0); Triglycerides 135 mg/dL (<150)
[2023-06-13 12:26] LABS: Free T4 (Free Thyroxine) 1.01 ng/dL (0.71-1.85); Thyroid Stimulating Hormone 1.59 uIU/mL (0.32-4.0); Vitamin D 25-OH Total 40.1 ng/mL (>30)
[2023-06-14 19:33] LABS: Calcium (PTHI) 9.7 mg/dL (8.6-10.4); PTHI 55 pg/mL (16-77)
== END 2023-06-13 09:01 | disposition home or self-care (01) ==
LOC: HO.HMGCLDS 09:00
PROVIDERS: PCP Internal Medicine; Visit Provider Internal Medicine
DX: I10 Essential (primary) hypertension (principal); E11.9 Type 2 diabetes mellitus without complications; M81.0 Age-related osteoporosis without current pathological fracture; E78.2 Mixed hyperlipidemia; R82.90 Unspecified abnormal findings in urine
CPT/HCPCS: 36415; 80053; 80061; 81001; 82306; 83036; 83970; 84439; 84443; 85025; 87086; 87088; 87186

== ENCOUNTER 2024-01-27 12:21 | Outpatient (AMB) | payer MEDICARE, SELFPAY ==
[2024-01-27 12:44] VITALS: BP 112/64; PULSE 62; BMI 32.9
--- NOTE | 2024-01-27 12:44 | A.OFFVIS_ITS ---
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 Allergies cimetidine [From TAGAMET] Allergy (Unknown, Verified 06/27/21 13:53) HIVES Medication List - Last Reconciled 01/27/24 by Albin Vasquez MD albuterol sulfate 90 mcg/actuation inhalation alprazolam 1 mg PO BID PRN amlodipine 5 mg PO DAILY ascorbate calcium (vitamin C) 500 mg PO BID aspirin (Adult Aspirin Regimen) 81 mg PO DAILY escitalopram oxalate 10 mg PO DAILY ibuprofen 800 mg PO Q8H PRN isosorbide mononitrate ER 30 mg PO DAILY losartan 50 mg PO BID magnesium 250 mg PO DAILY metformin ER 500 mg PO BID metoprolol tartrate 25 mg PO BID omega [id number]-fish oil 1,200 (144-216) mg (Fish Oil) caps PO omeprazole 20 mg PO DAILY rosuvastatin 20 mg PO BEDTIME HPI Comments Details: Nikkie comes for follow-up. She is currently undergoing stress due to 's cognitive issues and current [facility] facility placement. She complains of increasing exertional shortness of breath as noted low oxygen levels. Not had any pulmonary workup for follow-up. She denies any exertional chest pain. Takes all her medications. Denies any prolonged palpitation irregular heartbeat. No shortness of breath, orthopnea, PND. PFSH Medical History Diabetes Hyperlipidemia HTN (hypertension) CAD (coronary artery disease) Exertional angina Surgical History Hx of colonoscopy Hx of CABG Hx of cardiac cath Family History Father CVD (cardiovascular disease) Mother No problems noted. Brother CVD (cardiovascular disease) Social History Patient Tobacco Use Status: Never used Tobacco Review of Systems Const Denies chills, Denies fatigue, Denies fever(s), Denies frequent falls, Denies weakness, Denies weight gain and Denies weight loss ENT Denies dizziness Card Denies chest pain, Denies leg edema, Denies lightheadedness, Denies palpitations, Denies dyspnea, Denies dyspnea on exertion, Denies orthopnea and Denies other (loss of consciousness) Resp Denies cough, Denies dyspnea and Denies dyspnea on exertion GI Denies hematochezia and Denies change in stool character Musc Denies abnormal gait, Denies muscle weakness, Denies numbness, Denies radiating pain into limb and Denies tingling Neuro Denies abnormal gait, Denies dizziness, Denies frequent falls, Denies numbness, Denies tingling and Denies weakness Endo Denies fatigue and Denies palpitations Physical Exam Vital Signs: Last Vital Signs Pulse 62 01/27/24 12:44 BP 112/64 01/27/24 12:44 BMI result Body Mass Index 32.9 Const General: cooperative, comfortable, alert, awake and well groomed Nutritional Appearance: overweight Orientation/consciousness: patient oriented x3 Limitations: no limitations Neck Neck: Yes trachea midline, Yes supple and Yes no JVD Resp Effort & Inspection: normal respiratory effort Auscultation: clear to auscultation bilaterally and diminished lung sounds Cardio Jugular venous distension: no JVD Palpation: normal PMI Rate: regular rate Rhythm: regular rhythm Heart sounds: S1 normal heart sound present and S2 normal heart sound present Peripheral pulses: Peripheral pulses 2+ throughout GI Auscultation: normal bowel sounds Skin General skin exam: no rashes or lesions noted Neuro General: patient oriented x3 and no focal motor deficits Extrem General: Yes no clubbing, cyanosis or edema Psych Appearance: grossly normal Office Procedures EKG Details: EKG shows normal sinus rhythm normal EKG at 62 beats per minute [id number], Complete Assessment & Plan Assessment & Plan (1) CAD (coronary artery disease): Code(s): I25.10 - Atherosclerotic heart disease of [place] coronary artery without angina pectoris Category: Medical Plan: CAD with remote coronary artery bypass grafting with a corrected edema. Currently having no symptoms of angina on current therapy. Continue low-dose aspirin therapy for life. Continue aggressive blood pressure control and current dual antianginal therapy with amlodipine and isosorbide. Continue aggressive diabetes management goal hemoglobin A1c less than 7%. Goal LDL less than 70 mg/dL. Will obtain lab work done an outside facility. Encouraged to continue to participate in physical activity as tolerated. Her current exertional shortness of breath is most likely due to pulmonary parenchymal disease. Advised to follow-up echocardiogram near future to evaluate for LV systolic and diastolic function as well as for pulmonary hypertension. Will re anival her to Pulmonary for further evaluation for underlying COPD which is highly likely. (2) HTN (hypertension): Code(s): I10 - Essential (primary) hypertension Category: Medical Plan: Hypertension which is currently well optimized advised to monitor blood pressure at home maintain a log. Goal blood pressure less than 130/84. Continue current therapy. Importance of good blood pressure control was discussed. Low-salt diet was discussed. Stress mitigation strategies advised. (3) SOB (shortness of breath) on exertion: Code(s): R06.02 - Shortness of breath Category: Medical Plan: Shortness of breath on exertion most likely pulmonary in origin. See above. Follow up in the clinic in 1 year's otherwise. Thank you for allowing me to partake in her care Orders: Orders CA echo transthoracic complete 01/27/24 R06.02 - Shortness of breath Referrals Pulmonology Referral R06.02 - Shortness of breath Coding Level of Care Code Est Pt Level 4 (60309) Diagnoses CAD (coronary artery disease) I25.10 HTN (hypertension) I10 SOB (shortness of breath) on exertion R06.02 CPT Codes EKG - CPT: 27126-[id number], Complete ([id number])
== END 2024-01-27 13:24 | disposition home or self-care (01) ==
PROVIDERS: PCP Internal Medicine; Visit Provider Internal Medicine Cardiovascular Disease
DX: I25.10 Atherosclerotic heart disease of native coronary artery without angina pectoris (principal); I10 Essential (primary) hypertension; R06.02 Shortness of breath
CPT/HCPCS: 93010; 99214

== ENCOUNTER → 2024-01-27 12:21 | Outpatient (BNVA) | payer MEDICARE, SELFPAY | PROVIDERS: PCP Internal Medicine; Visit Provider Internal Medicine Cardiovascular Disease | DX: I25.10 Atherosclerotic heart disease of native coronary artery without angina pectoris (principal); I10 Essential (primary) hypertension; R06.02 Shortness of breath; Z95.1 Presence of aortocoronary bypass graft; Z98.890 Other specified postprocedural states | CPT/HCPCS: 93005; 99212 ==

== ENCOUNTER → 2024-02-28 12:43 | Outpatient (REF) | payer MEDICARE, SELFPAY ==
--- NOTE | 2024-02-28 12:46 | CA_ITS ---
Transthoracic Echocardiogram Patient (Last, First, Middle): Nikkie Alonso L Gender: Female Date of : 1950 Age: 73 Procedure Date: 02/28/2024 Procedure Type: Transthoracic Echocardiogram Location: OP Height: 154.94 cm Weight: 79.38 kg BSA: 1.78 m2 Heart Rate: 61 bpm BP: 145 / 60 mmHg Document Analyst: ESTHER Referring MD: Albin Vasquez MD Symptoms: R06.02 - Shortness of breath Study Quality: Fair ECG Rhythm: Sinus Conclusions: - Normal left ventricular size and systolic function. There is mildly increased left ventricular wall thickness. The visually estimated ejection fraction is between 65-70%. There is no evidence of regional wall motion abnormalities. Diastolic function is normal for age. - Mildly increased right ventricular cavity size. There is mildly decreased right ventricular systolic function. - Normal GLS -22% Findings Left Ventricle Normal left ventricular size and systolic function. There is mildly increased left ventricular wall thickness. The visually estimated ejection fraction is between 65-70%. There is no evidence of regional wall motion abnormalities. Diastolic function is normal for age. Right Ventricle Mildly increased right ventricular cavity size. There is mildly decreased right ventricular systolic function. Atria The left atrium is normal in size. The right atrium is normal in size. Aortic Valve There is a normal trileaflet aortic valve. There is no aortic valve stenosis. There is no aortic valve regurgitation. Mitral Valve The mitral valve appears normal. There is no mitral valve regurgitation. There is no mitral valve stenosis. Pulmonic Valve The pulmonic valve is likely normal. Tricuspid Valve Normal tricuspid valve structure. There is no tricuspid valve regurgitation. Normal right atrial pressure. There is no evidence of pulmonary hypertension. Great Vessels All visible segments of the aorta are normal in size. The visualized portions of the pulmonary artery and branches are normal. Venous The inferior vena cava is normal in size and collapses greater than 50% with inspiration. Pericardium/Pleural There is no evidence of pericardial effusion. Measurements 2D Linear Measurements IVSd: 1.00 0.6-0.9/0.6-1.0 cm LVIDd: 4.99 3.9-5.3/4.2-5.9 cm LVIDd Index: 2.80 2.4-3.2/2.2-3.1 cm/m2 LVIDs: 3.39 2.0-3.6 cm LVPWd: 0.91 0.7-1.1 cm LA Diam: 4.60 2.7-3.8/3.0-4.0 cm LAIDs Index: 2.58 1.5-2.3 cm/m2 LV Mass: 211.39 67-162/88-224 g LV Mass Index: 118.76 43-95/49-115 g/m2 LVOT Diam: 2.00 3.0+(-)1.3 cm 2D Systolic Function EF 4C: 76.70 >55% EF 2C: 65.10 >55% EF BiP: 71.80 >55% Mitral Valve MV Pk E: 0.97 MV PK A: 1.05 MV Decel Time: 210.00 E/A: 0.90 E'Lateral: 10.40 E'Medial: 8.92 E/E' Med: 10.90 E/E' Lat: 9.40 PHT: 61.00 MVA PHT: 3.61 Decel Ross: 4.64 Aortic Valve AoV Pk Iglesia: 1.59 AoV Mn Iglesia: 1.12 AoV VTI: 0.38 AoV Pk Grad: 10.00 Aov Mn Grad: 6.00 EMILY Cont.VTI: 2.36 LVOT LVOT Pk Iglesia: 1.31 LVOT Mn Iglesia: 0.84 LVOT VTI: 0.29 LVOT Pk Grad: 7.00 LVOT Mn Grad: 3.00 LVOT Diam: 2.00 LVOT Area: 3.14 Diastolic Function MV Pk E: 0.97 MV Pk A: 1.05 E/A: 0.90 E'Medial: 8.92 E/E' Med: 10.90 E' Laterial: 10.40 E/E' Lat: 9.40 Right Ventricle TAPSE (mm): 17.50 TVS' Iglesia: 9.67 Tricuspid Valve TR Pk Iglesia: 2.89 TR Pk Grad: 33.00 RA Press: 3.00 RVSP: 36.00 Great Vessels Aorta Sinus of Valsalva: 3.10 2.0-3.5 cm Ao Asc: 3.20 2.1-3.4 cm Pulmonary Valve PV Pk Iglesia: 1.37 Peak PV Grad: 8.00 Updated in Other Vendor System with Status of Final Stu Palacios MD electronically signed on 03/01/2024 1:09:25 PM with status of Final
== END ==
LOC: HO.CARD 12:43
PROVIDERS: PCP Internal Medicine; Visit Provider Internal Medicine Cardiovascular Disease
DX: R06.02 Shortness of breath (principal)
CPT/HCPCS: 93306; 93356

== ENCOUNTER → 2024-02-28 12:46 | Outpatient (BNV) | payer MEDICARE, SELFPAY | PROVIDERS: PCP Internal Medicine; Visit Provider Internal Medicine Cardiovascular Disease | DX: R06.02 Shortness of breath (principal) | CPT/HCPCS: 93306; 93356 ==

== ENCOUNTER 2024-03-09 13:13 | Outpatient (AMB) | payer MEDICARE, SELFPAY ==
[2024-03-09 13:19] VITALS: BP 130/62; PULSE 66; O2SAT 90; BMI 33.1
--- NOTE | 2024-03-09 13:19 | A.OFFVIS_ITS ---
Vital Signs 03/09/24 13:19 Height 5 ft 1 in Weight 175 lb 4.28 oz BMI 33.1 BP 130/62 Blood Pressure Location Lt brachial Position Sitting Pulse 66 Pulse Source Doppler Pulse Oximetry (%) 90 L Oxygen Delivery Method Room Air Intake Visit Reasons: Shortness of breath Allergies cimetidine [From TAGAMET] Allergy (Unknown, Verified 03/09/24 13:26) HIVES HPI HPI Shortness of breath: Details: 73-year-old lady, former 100+ pack-year smoker, quit 2007 at the time of CABG referred for evaluation of pulmonary component to her dyspnea on exertion. Patient does complain of dyspnea after walking for several 100 yd, she also complains of intermittent wheezing not related to activity. She has tried using her 's ProAir with some improvement. Patient denies having recent pulmonary function testing. Her in office spirometry shows FEV1 of 67%, but no fixed obstruction. [facility] Medical History Diabetes Hyperlipidemia HTN (hypertension) CAD (coronary artery disease) Exertional angina Surgical History Hx of colonoscopy Hx of CABG Hx of cardiac cath Family History Father CVD (cardiovascular disease) Mother No problems noted. Brother CVD (cardiovascular disease) Social History (Updated 03/09/24 @ 13:28 by Hien Negrete REPLACED BY [facility]) Patient Tobacco Use Status: Former Tobacco user Tobacco use type: Cigarette Years Smoked: quit 2007, started at 17, 2ppd Review of Systems Const Denies daytime sleepiness, Denies excessive sweating, Denies fatigue, Denies fever(s), Denies lethargy, Denies malaise, Denies night sweats, Denies snoring and Denies weight loss Eyes Denies blurry vision and Denies itchy eyes ENT Denies nasal congestion, Denies post nasal drip, Denies sinus pain, Denies sinus pressure and Denies other ( Thrush) Card Denies chest pain, Denies pedal edema, Denies dyspnea, Reports dyspnea on exert ion, Denies orthopnea and Denies paroxysmal nocturnal dyspnea Resp Denies cough, Denies hemoptysis, Denies excessive phlegm production, Denies dyspnea, Reports dyspnea on exertion, Denies snoring and Denies wheezing GI Denies abdominal pain and Denies heartburn Musc Denies myalgias, Denies arthralgias and Denies joint swelling Skin/Breast Denies rash Neuro Denies memory loss and Denies seizure-like activity Psych Denies abnormal sleep pattern, Denies anxiety and Denies memory loss Endo Denies excessive sweating, Denies fatigue and Denies heat intolerance Anatoly/Lymph Denies easy bruising Aller/Immun Denies itchy eyes, Denies seasonal rhinorrhea and Denies wheezing Physical Exam Vital Signs: Last Vital Signs Pulse 66 03/09/24 13:19 BP 130/62 03/09/24 13:19 Pulse Ox 90 L 03/09/24 13:19 Oxygen Delivery Method Room Air 03/09/24 13:19 BMI result Body Mass Index 33.1 Const General: no acute distress and alert Nutritional Appearance: obese Orientation/consciousness: Other orientation findings ( oriented) HEENT Head: Yes atraumatic Eyes General: appearance normal, both eyes and all related structures Sclerae: sclerae normal EOM: EOMs intact bilaterally Neck Neck: Yes supple Lymphatic: no lymphadenopathy noted Resp Effort & Inspection: normal respiratory effort and no use of accessory muscles Auscultation: clear to auscultation bilaterally Cardio Rate: regular rate Rhythm: regular rhythm Heart sounds: no gallops, no murmurs and no rubs Skin General skin exam: other ( warm) Extrem General: No clubbing, No cyanosis and No edema Office Procedures Spirometry Testing Spirometry Comments: Spirometry done in the office, Dr. Posada has the results results scanned to her chart. [id number] Spirometry Assessment & Plan Assessment & Plan (1) SOB (shortness of breath) on exertion: Code(s): R06.02 - Shortness of breath Category: Medical (2) Emphysema of lung: Code(s): J43.9 - Emphysema, unspecified Category: Medical (3) Pulmonary nodules: Code(s): R91.8 - Other nonspecific abnormal finding of lung field Category: Medical Plan Dyspnea on exertion with at least some pulmonary component likely secondary to emphysema fixed obstruction noted. Will start on empiric Anoro, patient wants to use her Spiriva until she runs out. Continue albuterol MDI. Will reassess symptoms in [address] chest for evaluation of lung parenchyma for nodules. Orders: Orders AMB Spirometry Testing Today R06.02 - Shortness of breath CT chest wo IV con Today R91.8 - Other nonspecific abnormal finding of lung field Medications: New umeclidinium-vilanterol 62.5-25 mcg/actuation (Anoro Ellipta) 1 inh inhalation DAILY 30 days 1 ea 6RF albuterol sulfate 90 mcg/actuation 2 puffs inhalation 6XD PRN 1 ea 6RF shortness of breath or wheezing Coding Level of Care Code New Pt Level 4 (77379) Diagnoses SOB (shortness of breath) on exertion R06.02 Emphysema of lung J43.9 Pulmonary nodules R91.8 CPT Codes Spirometry - CPT: 87631- Spirometry ([id number])
== END 2024-03-09 14:02 | disposition home or self-care (01) ==
PROVIDERS: PCP Internal Medicine; Visit Provider Internal Medicine Pulmonary Disease
DX: R06.02 Shortness of breath (principal); J43.9 Emphysema, unspecified; R91.8 Other nonspecific abnormal finding of lung field
CPT/HCPCS: 94010; 99204

== ENCOUNTER → 2024-03-09 13:13 | Outpatient (BNVA) | payer MEDICARE, SELFPAY | PROVIDERS: PCP Internal Medicine; Visit Provider Internal Medicine Pulmonary Disease | DX: J43.9 Emphysema, unspecified (principal); R06.02 Shortness of breath; R91.8 Other nonspecific abnormal finding of lung field; Z87.891 Personal history of nicotine dependence | CPT/HCPCS: 94010; 99202 ==

== ENCOUNTER 2024-04-03 07:12 | Outpatient (REF) | payer MEDICARE, SELFPAY ==
--- NOTE | ~2024-04-03 | CT_ITS ---
EXAMINATION: CT CHEST WITHOUT CONTRAST CLINICAL INFORMATION: Pulmonary nodules, follow-up, other nonspecific abnormal finding of the lung field. COMPARISON: Remote chest CT 06/07/2008. CT abdomen and pelvis 04/08/2020. TECHNIQUE: Multidetector volumetric CT imaging of the chest was done. Axial MIP volume rendering provided. Sagittal and coronal reformatted images were obtained. This CT examination was performed using dose optimization techniques as appropriate, variously including the following: *Automated exposure control *Adjustment of mA and/or kV according to patient size (this includes techniques or standardized protocols for targeted exams where dose is matched to indication/reason for exam; i.e. extremities or head) *Use of iterative reconstruction technique DLP: 159 mGy-cm FINDINGS: PULMONARY NODULES: -7 mm pleural-based oval nodule posterior left apex (series 5, image 109), measured 5 mm in 2007. This has fat attenuation internally, highly suggestive of hamartoma. This finding is benign. -Average diameter 10 mm oval pleural-based nodule in the right posterior costophrenic sulcus (series 5, image 404), with some fat attenuation internally, highly suggesting hamartoma. On April 08, 2020, this measured approximately 8 x 11 mm and was stable from 2014. Finding is benign. -There are no new or enlarging suspicious pulmonary nodules. LUNGS: -Lungs demonstrate mild paraseptal emphysema with apical predominance. -Subpleural interstitial changes throughout the upper and lower lobes, with mild intralobular septal thickening in the upper lobes bilaterally, underlying mosaic attenuation diffusely, and mild diffuse cylindrical bronchiectasis. This may be a manifestation of pulmonary edema , underlying interstitial lung disease, pulmonary hypertension, or less likely chronic hypersensitivity pneumonitis. Sequela of chronic reactive airways disease could also have this appearance. -No consolidations or groundglass opacities. No gross subpleural honeycombing, or peribronchovascular interstitial thickening. -The pulmonary arteries are engorged, suggesting pulmonary arterial hypertension. -No pleural effusions or pleural masses. MEDIASTINUM: -The heart is enlarged to a mild degree. There has been a prior CABG with median sternotomy. No pericardial effusion. There is left atrial enlargement. Lipomatous infiltration of the intra-atrial septum. -Main pulmonary artery is quite prominent, larger than the accompanying aorta, measuring up to 3.0 cm. Findings suggest underlying pulmonary hypertension. -There is a prominent precarinal lymph node present, with preserved fatty shasha. It measures 1.4 cm short axis. This had a similar appearance in 2008 and is certainly reactive. No additional adenopathy. -Aorta is nonaneurysmal with mild to moderate calcification. -Thyroid is normal. -Esophagus is normal. -Normal great vessels. -IVC appears engorged suggesting increased right heart pressures. CORONARY ARTERY CALCIFICATION: Extensive four-vessel calcifications. CABG. AXILLA/CHEST WALL: No masses or abnormal lymph nodes present. UPPER ABDOMEN: -Mild enlargement and fatty infiltration of the liver. No focal liver lesion on this noncontrast exam. -Spleen measures top normal in size. -There are gastric varices incidentally noted. OSSEOUS STRUCTURES: -No lytic or blastic bone lesions. -Median sternotomy. -Mild spinal degenerative changes. Bilateral right greater than left shoulder joint arthritic changes. CT/CT chest wo IV con IMPRESSION: 1. Stable lung nodules left upper lobe and right lower lobe with foci of fat attenuation, consistent with benign hamartomas. No new or enlarging nodules. 2. Findings highly suggestive of pulmonary arterial hypertension. This may explain mosaic attenuation of the lungs. 3. Mild paraseptal emphysema with apical predominance. Mild subpleural interstitial changes throughout both lungs with associated mild bronchiectasis diffusely, non-specific. Mosaic attenuation of the lungs. There may be a component of mild pulmonary interstitial edema over lapping these findings. Differential is broad and includes pulmonary arterial hypertension, interstitial pulmonary edema, chronic reactive airways disease/air trapping, early subpleural fibrosis secondary to underlying collagen vascular disease, or possibly chronic hypersensitivity pneumonitis. If the patient is a smoker, should also include smoking-related lung disease. 4. Mild cardiac enlargement. Surgical changes status post CABG. 5. Enlargement and fatty infiltration of the liver. Gastric varices. Fleischner guidelines were followed. Electronically signed by: Lester Arreola MD 05/01/2024 01:32 PM EDT
== END 2024-04-03 07:13 | disposition home or self-care (01) ==
LOC: HO.CT 07:12
PROVIDERS: PCP Internal Medicine; Visit Provider Internal Medicine Pulmonary Disease
DX: R91.8 Other nonspecific abnormal finding of lung field (principal)
CPT/HCPCS: 71250

== ENCOUNTER → 2024-04-03 07:14 | Outpatient (BNV) | payer MEDICARE, SELFPAY | PROVIDERS: PCP Internal Medicine; Visit Provider Radiology Diagnostic Radiology | DX: R91.8 Other nonspecific abnormal finding of lung field (principal) | CPT/HCPCS: 71250 ==

== ENCOUNTER 2024-04-07 10:07 | Outpatient (REF) | payer MEDICARE, SELFPAY ==
[2024-04-07 13:36] LABS: MANUAL DIFF FLAG NO
[2024-04-07 13:41] LABS: Appearance Urine Clear; Color Urine Yellow; Glucose Urine UA Negative (Negative); Leukocyte Esterase Urine Negative (Negative); Nitrite Urine Negative (Negative); PH 7.5 (5.0-9.0); Urine Blood Negative (Negative); Urine Ketones Negative (Negative); Urine Protein Negative (Neg-Trace)
[2024-04-07 13:44] LABS: Basophils Percent Auto 0.4 % (0-2); Eosinophils Absolute Auto 0.3 X10*3/uL (0.0-0.4); Eosinophils Percent Auto 3.3 % (0-4); Hematocrit 42.1 % (37.0-47.0); Hemoglobin 13.4 g/dl (12.0-16.0); Imm Gran Abs Auto 0.03 X10*3/uL (0.00-0.03); Imm Gran Pct Auto 0.4 % (0.0-0.4); Lymphocytes Absolute Auto 1.5 X10*3/uL (1.2-4.9); Lymphocytes Percent Auto 20.1 % (20-40); Mean Corpuscular HGB Conc 31.8 g/dl (31.0-35.0); Mean Corpuscular Hemoglobin 28.1 pg (27.0-33.0); Mean Corpuscular Volume 88.3 fL (80.0-98.0); Mean Platelet Volume 9.1 fL (9.4-12.3); Monocytes Absolute Auto 0.6 X10*3/uL (0.1-1.2); Monocytes Percent Auto 7.3 % (2-11); Neutrophils Absolute Auto 5.2 x10*3/uL (2.0-8.3); Neutrophils Percent Auto 68.5 % (45-73); Platelet Count 243 X10*3/uL (160-400); Red Blood Count 4.77 X10*6/uL (4.20-5.50); Red Cell Distribution Width 16.1 % (11.0-16.0); White Blood Count 7.6 X10*3/uL (4.8-10.8)
[2024-04-07 13:57] LABS: Estimated Average Glucose 169 mg/dL; Hemoglobin A1c % 7.5 % (<6.0)
[2024-04-07 14:16] LABS: Microalbum/Creatinine Ratio Ur 39.4 ug/mg cr (<30)
[2024-04-07 14:19] LABS: Alanine Aminotransferase 23 U/L (0-31); Albumin Level 4.1 g/dL (3.5-5.0); Alkaline Phosphatase 88 U/L (39-117); Anion Gap 13 (12-20); Aspartate Amino Transferase 28 U/L (5-31); Bilirubin Total 0.7 mg/dL (0.0-1.0); Blood Urea Nitrogen 9 mg/dL (9-16); Calcium 10.1 mg/dL (8.4-10.2); Carbon Dioxide 26 mmol/L (22-29); Chloride 105 mmol/L (96-108); Cholesterol 126 mg/dL (<200); Estimated Glomerular Filt Rate > 60; Glucose Random 158 mg/dL (60-115); HDL Cholesterol 47 mg/dL (>40); LDL Cholesterol Calculated 54 mg/dL (<100); Sodium 140 mmol/L (135-145); Total Protein 7.4 g/dL (6.5-8.0); Triglycerides 127 mg/dL (<150)
[2024-04-07 14:25] LABS: Thyroid Stimulating Hormone 1.81 uIU/mL (0.32-4.0); Vitamin D 25-OH Total 40.1 ng/mL (>30)
== END 2024-04-07 10:08 | disposition home or self-care (01) ==
LOC: HO.HMGCLDS 10:07
PROVIDERS: PCP Internal Medicine; Visit Provider Internal Medicine
DX: E11.9 Type 2 diabetes mellitus without complications (principal); I10 Essential (primary) hypertension; Z79.4 Long term (current) use of insulin
CPT/HCPCS: 36415; 80053; 80061; 81003; 82043; 82306; 82570; 83036; 84443; 85025

== ENCOUNTER 2024-04-08 13:21 | Outpatient (AMB) | payer MEDICARE, SELFPAY ==
[2024-04-08 13:32] VITALS: BP 138/62; PULSE 67; O2SAT 91; BMI 33.5
--- NOTE | 2024-04-08 13:32 | MHC.OFFVIS ---
Vital Signs 04/08/24 13:32 Height 5 ft 1 in Weight 177 lb 7.554 oz BMI 33.5 BP 138/62 Blood Pressure Location Rt brachial Position Sitting Pulse 67 Pulse Source Doppler Pulse Oximetry (%) 91 L Oxygen Delivery Method Room Air Intake Visit Reasons: Shortness of breath Allergies cimetidine [From TAGAMET] Allergy (Unknown, Verified 03/09/24 13:26) HIVES HPI HPI Shortness of breath: Details: 73-year-old lady, former 100+ pack-year smoker, quit 2007 at the time of CABG referred for evaluation of pulmonary component to her dyspnea on exertion. Patient does complain of dyspnea after walking for several 100 yd, she also complains of intermittent wheezing not related to activity. She has tried using her 's ProAir with some improvement. Patient denies having recent pulmonary function testing. Her in office spirometry shows FEV1 of 67%, but no fixed obstruction. Her CT chest demonstrates left upper nodule now at approximately [address] chest in 2007 at approximately 5 mm and right basilar nodule now at 12 mm and in 2008 at approximately 10 mm. After the last office visit patient started on Anoro, however she has not been using it consistently. She denies acute exacerbations. [facility] Medical History Diabetes Hyperlipidemia HTN (hypertension) CAD (coronary artery disease) Exertional angina Surgical History Hx of colonoscopy Hx of CABG Hx of cardiac cath Family History Father CVD (cardiovascular disease) Mother No problems noted. Brother CVD (cardiovascular disease) Social History (Updated 03/09/24 @ 13:28 by Hien Negrete Mona) Patient Tobacco Use Status: Former Tobacco user Tobacco use type: Cigarette Years Smoked: quit 2007, started at 17, 2ppd Review of Systems Const Denies daytime sleepiness, Denies excessive sweating, Denies fatigue, Denies fever(s), Denies lethargy, Denies malaise, Denies night sweats, Denies snoring and Denies weight loss Eyes Denies blurry vision and Denies itchy eyes ENT Denies nasal congestion, Denies post nasal drip, Denies sinus pain, Denies sinus pressure and Denies other ( Thrush) Card Denies chest pain, Denies pedal edema, Denies dyspnea, Reports dyspnea on exertion, Denies orthopnea and Denies paroxysmal nocturnal dyspnea Resp Denies cough, Denies hemoptysis, Denies excessive phlegm production, Denies dyspnea, Reports dyspnea on exertion, Denies snoring and Denies wheezing GI Denies abdominal pain and Denies heartburn Musc Denies myalgias, Denies arthralgias and Denies joint swelling Skin/Breast Denies rash Neuro Denies memory loss and Denies seizure-like activity Psych Denies abnormal sleep pattern, Denies anxiety and Denies memory loss Endo Denies excessive sweating, Denies fatigue and Denies heat intolerance Anatoly/Lymph Denies easy bruising Aller/Immun Denies itchy eyes, Denies seasonal rhinorrhea and Denies wheezing Physical Exam Vital Signs: Last Vital Signs Pulse 67 04/08/24 13:32 BP 138/62 04/08/24 13:32 Pulse Ox 91 L 04/08/24 13:32 Oxygen Delivery Method Room Air 04/08/24 13:32 BMI result Body Mass Index 33.5 Const General: no acute distress and alert Nutritional Appearance: obese Orientation/consciousness: Other orientation findings ( oriented) HEENT Head: Yes atraumatic Eyes General: appearance normal, both eyes and all related structures Sclerae: sclerae normal EOM: EOMs intact bilaterally Neck Neck: Yes supple Lymphatic: no lymphadenopathy noted Resp Effort & Inspection: normal respiratory effort and no use of accessory muscles Auscultation: clear to auscultation bilaterally Cardio Rate: regular rate Rhythm: regular rhythm Heart sounds: no gallops, no murmurs and no rubs Skin General skin exam: other ( warm) Extrem General: No clubbing, No cyanosis and No edema Assessment & Plan Assessment & Plan (1) Pulmonary nodules: Code(s): R91.8 - Other nonspecific abnormal finding of lung field Category: Medical Plan: Results of CT chest reviewed, right basilar nodule now 12 mm in 2008 10 mm, left apical nodule now 8 mm in 2008 5 mm. Suggests an indolent process. Will repeat CT chest in 12 months. (2) Emphysema of lung: Code(s): J43.9 - Emphysema, unspecified Category: Medical Plan: Suboptimal control as patient has been using her Anoro intermittently. Patient insulin encouraged to use her Anoro consistently and reassess her symptoms in 2 weeks. Continue albuterol MDI. Coding Level of Care Code Est Pt Level 4 (18109) Diagnoses Pulmonary nodules R91.8 Emphysema of lung J43.9
== END 2024-04-08 14:53 | disposition home or self-care (01) ==
PROVIDERS: PCP Internal Medicine; Visit Provider Internal Medicine Pulmonary Disease
DX: R91.8 Other nonspecific abnormal finding of lung field (principal); J43.9 Emphysema, unspecified
CPT/HCPCS: 99214

== ENCOUNTER → 2024-04-08 13:21 | Outpatient (BNVA) | payer MEDICARE, SELFPAY | PROVIDERS: PCP Internal Medicine; Visit Provider Internal Medicine Pulmonary Disease | DX: J43.9 Emphysema, unspecified (principal); R06.00 Dyspnea, unspecified; R91.8 Other nonspecific abnormal finding of lung field; Z87.891 Personal history of nicotine dependence | CPT/HCPCS: 99212 ==

== ENCOUNTER 2024-05-11 10:10 | Outpatient (AMB) | payer MEDICARE, SELFPAY ==
[2024-05-11 10:11] VITALS: BP 120/64; PULSE 60; O2SAT 88; BMI 32.9
--- NOTE | 2024-05-11 10:11 | MHC.OFFVIS ---
Vital Signs 05/11/24 10:11 Height 5 ft 1 in Weight 174 lb 2.643 oz BMI 32.9 BP 120/64 Blood Pressure Location Lt brachial Position Sitting Pulse 60 Pulse Source Doppler Pulse Oximetry (%) 88 L Oxygen Delivery Method Room Air Intake Visit Reasons: Shortness of breath / CT f/u Allergies cimetidine [From TAGAMET] Allergy (Unknown, Verified 05/11/24 10:17) HIVES HPI HPI Shortness of breath / CT f/u: Details: 73-year-old lady, former 100+ pack-year smoker, quit 2007 at the time of CABG referred for evaluation of pulmonary component to her dyspnea on exertion. Patient does complain of dyspnea after walking for several 100 yd, she also complains of intermittent wheezing not related to activity. She has tried using her 's ProAir with some improvement. Patient denies having recent pulmonary function testing. Her in office spirometry shows FEV1 of 67%, but no fixed obstruction. Her CT chest demonstrates left upper nodule now at approximately [address] chest in 2007 at approximately 5 mm and right basilar nodule now at 12 mm and in 2008 at approximately 10 mm. After the last office visit patient started on Anoro, however she has not been using it consistently. She denies acute exacerbations. Patient returns to follow-up to discuss results of a CT scan previously discussed, as primary care advised her to do so. Reviewing official read of her most recent CT chest there is concern for possible underlying pulmonary hypertension, patient though does have recent 2D echocardiogram showing right ventricular systolic pressure at 35 mmHg. There is also concern for mosaic attenuation which does have a very broad diagnosis, but considering patient's underlying left heart issues, is likely secondary to mild pulmonary edema that also corresponds to her lower extremity edema. [facility] Medical History Diabetes Hyperlipidemia HTN (hypertension) CAD (coronary artery disease) Exertional angina Surgical History Hx of colonoscopy Hx of CABG Hx of cardiac cath Family History Father CVD (cardiovascular disease) Mother No problems noted. Brother CVD (cardiovascular disease) Social History (Updated 03/09/24 @ 13:28 by Hien Negrete [facility]) Patient Tobacco Use Status: Former Tobacco user Tobacco use type: Cigarette Years Smoked: quit 2007, started at 17, 2ppd Review of Systems Const Denies daytime sleepiness, Denies excessive sweating, Denies fatigue, Denies fever(s), Denies lethargy, Denies malaise, Denies night sweats, Denies snoring and Denies weight loss Eyes Denies blurry vision and Denies itchy eyes ENT Denies nasal congestion, Denies post nasal drip, Denies sinus pain, Denies sinus pressure and Denies other ( Thrush) Card Denies chest pain, Denies pedal edema, Denies dyspnea, Reports dyspnea on exertion (Chronic), Denies orthopnea and Denies paroxysmal nocturnal dyspnea Resp Denies cough, Denies hemoptysis, Denies excessive phlegm production, Denies dyspnea, Reports dyspnea on exertion (Chronic), Denies snoring and Denies wheezing GI Denies abdominal pain and Denies heartburn Musc Denies myalgias, Denies arthralgias and Denies joint swelling Skin/Breast Denies rash Neuro Denies memory loss and Denies seizure-like activity Psych Denies abnormal sleep pattern, Denies anxiety and Denies memory loss Endo Denies excessive sweating, Denies fatigue and Denies heat intolerance Anatoly/Lymph Denies easy bruising Aller/Immun Denies itchy eyes, Denies seasonal rhinorrhea and Denies wheezing Physical Exam Vital Signs: Last Vital Signs Pulse 60 05/11/24 10:11 BP 120/64 05/11/24 10:11 Pulse Ox 88 L 05/11/24 10:11 Oxygen Delivery Method Room Air 05/11/24 10:11 BMI result Body Mass Index 32.9 Const General: no acute distress and alert Nutritional Appearance: obese Orientation/consciousness: Other orientation findings ( oriented) HEENT Head: Yes atraumatic Eyes General: appearance normal, both eyes and all related structures Sclerae: sclerae normal EOM: EOMs intact bilaterally Neck Neck: Yes supple Lymphatic: no lymphadenopathy noted Resp Effort & Inspection: normal respiratory effort and no use of accessory muscles Auscultation: clear to auscultation bilaterally Cardio Rate: regular rate Rhythm: regular rhythm Heart sounds: no gallops, no murmurs and no rubs Skin General skin exam: other ( warm) Extrem General: No clubbing, No cyanosis and Yes edema (Trace bilateral) Assessment & Plan Assessment & Plan (1) Emphysema of lung: Code(s): J43.9 - Emphysema, unspecified Category: Medical Plan: Reasonable control when patient is using her Anoro consistently. Continue Anoro and albuterol MDI/nebs. (2) Pulmonary nodules: Code(s): R91.8 - Other nonspecific abnormal finding of lung field Category: Medical Plan: Results of CT scan reviewed, minimal increase in pulmonary nodule. Will repeat CT chest 12 months from prior. (3) Abnormal CT scan, chest: Code(s): R93.89 - Abnormal findings on diagnostic imaging of other specified body structures Category: Medical Plan: Results reviewed, likely mild pulmonary edema. Most recent 2D echocardiogram with right ventricular systolic pressures of 35 with no overt concern for pulmonary hypertension. Coding Level of Care Code Est Pt Level 4 (11453) Diagnoses Emphysema of lung J43.9 Pulmonary nodules R91.[address] scan, chest R93.89
== END 2024-05-11 11:22 | disposition home or self-care (01) ==
PROVIDERS: PCP Internal Medicine; Visit Provider Internal Medicine Pulmonary Disease
DX: J43.9 Emphysema, unspecified (principal); R91.8 Other nonspecific abnormal finding of lung field; R93.89 Abnormal findings on diagnostic imaging of other specified body structures
CPT/HCPCS: 99214

== ENCOUNTER → 2024-05-11 10:10 | Outpatient (BNVA) | payer MEDICARE, SELFPAY | PROVIDERS: PCP Internal Medicine; Visit Provider Internal Medicine Pulmonary Disease | DX: J43.9 Emphysema, unspecified (principal); R06.02 Shortness of breath; R91.8 Other nonspecific abnormal finding of lung field; R93.89 Abnormal findings on diagnostic imaging of other specified body structures; Z87.891 Personal history of nicotine dependence | CPT/HCPCS: 99212 ==

== ENCOUNTER 2024-09-23 10:36 | Outpatient (REF) | payer MEDICARE, SELFPAY ==
--- NOTE | ~2024-09-23 | XR_ITS ---
EXAMINATION: XR CHEST CLINICAL INFORMATION: DYSPNEA ON EXERTION COMPARISON: April 09, 2023 TECHNIQUE: 2 views of the chest were obtained. FINDINGS: Pulmonary reticular nodular pattern. Prominence of the interstitial lung markings. Patchy opacity left lung base. No pleural effusion. No pneumothorax. Cardiomediastinal silhouette demonstrates sternal wires and mediastinal vascular clips likely CABG procedure. Calcified plaque thoracic aorta. Multilevel thoracic and upper lumbar spondylosis. Osteopenia versus osteoporosis. Degenerative changes in the shoulders. XR/XR chest 2V IMPRESSION: Acute on chronic airspace disease. Differential diagnostic considerations include pulmonary edema versus pneumonitis versus multifocal pneumonia. Electronically signed by: Marvin Whitehead MD 09/23/2024 11:16 AM CARLOS Workstation:
[2024-09-23 10:54] LABS: MANUAL DIFF FLAG NO
[2024-09-23 11:11] LABS: Basophils Percent Auto 0.3 % (0-2); Eosinophils Absolute Auto 0.2 X10*3/uL (0.0-0.4); Hematocrit 41.4 % (37.0-47.0); Hemoglobin 12.5 g/dl (12.0-16.0); Imm Gran Abs Auto 0.04 X10*3/uL (0.00-0.03); Imm Gran Pct Auto 0.4 % (0.0-0.4); Lymphocytes Absolute Auto 1.5 X10*3/uL (1.2-4.9); Lymphocytes Percent Auto 16.3 % (20-40); Mean Corpuscular HGB Conc 30.2 g/dl (31.0-35.0); Mean Corpuscular Hemoglobin 24.9 pg (27.0-33.0); Mean Corpuscular Volume 82.3 fL (80.0-98.0); Mean Platelet Volume 8.5 fL (9.4-12.3); Monocytes Absolute Auto 0.6 X10*3/uL (0.1-1.2); Monocytes Percent Auto 7.1 % (2-11); Neutrophils Absolute Auto 6.6 x10*3/uL (2.0-8.3); Neutrophils Percent Auto 73.9 % (45-73); Platelet Count 286 X10*3/uL (160-400); Red Blood Count 5.03 X10*6/uL (4.20-5.50); Red Cell Distribution Width 18.5 % (11.0-16.0)
[2024-09-23 11:36] LABS: Alanine Aminotransferase 23 U/L (0-31); Albumin Level 3.9 g/dL (3.5-5.0); Anion Gap 13 (12-20); Aspartate Amino Transferase 30 U/L (5-31); Bilirubin Total 0.6 mg/dL (0.0-1.0); Blood Urea Nitrogen 13 mg/dL (9-16); Calcium 10.1 mg/dL (8.4-10.2); Carbon Dioxide 25 mmol/L (22-29); Chloride 104 mmol/L (96-108); Cholesterol 117 mg/dL (<200); Estimated Glomerular Filt Rate > 60; Glucose Random 184 mg/dL (60-115); HDL Cholesterol 48 mg/dL (>40); LDL Cholesterol Calculated 52 mg/dL (<100); Magnesium 1.7 mg/dL (1.6-2.6); Potassium 4.2 mmol/L (3.3-5.1); Sodium 138 mmol/L (135-145); Total Protein 7.8 g/dL (6.5-8.0); Triglycerides 89 mg/dL (<150)
[2024-09-23 11:43] LABS: Parathyroid Hormone Intact 144.3 pg/mL (8.7-77.1)
[2024-09-23 11:52] LABS: Alkaline Phosphatase 84 U/L (39-117)
[2024-09-23 11:58] LABS: Vitamin D 25-OH Total 34.1 ng/mL (>30)
== END 2024-09-23 10:37 | disposition home or self-care (01) ==
LOC: HO.XRAY 10:36
PROVIDERS: PCP Internal Medicine; Visit Provider Internal Medicine
DX: I10 Essential (primary) hypertension (principal); E11.9 Type 2 diabetes mellitus without complications; Z79.4 Long term (current) use of insulin; I25.10 Atherosclerotic heart disease of native coronary artery without angina pectoris; R35.1 Nocturia; K59.00 Constipation, unspecified; M81.0 Age-related osteoporosis without current pathological fracture; R06.09 Other forms of dyspnea
CPT/HCPCS: 36415; 71046; 80053; 80061; 82306; 83735; 83970; 84443; 85025

== ENCOUNTER → 2024-09-23 10:56 | Outpatient (BNV) | payer MEDICARE, SELFPAY | PROVIDERS: PCP Internal Medicine; Visit Provider Radiology Diagnostic Radiology | DX: R06.09 Other forms of dyspnea (principal) | CPT/HCPCS: 71046 ==

== ENCOUNTER 2024-10-06 14:32 | Outpatient (AMB) | payer MEDICARE, SELFPAY ==
[2024-10-06 14:44] VITALS: BP 111/47; PULSE 59; O2SAT 94; BMI 32.3
--- NOTE | 2024-10-06 14:44 | A.OFFVIS_ITS ---
Vital Signs 10/06/24 14:44 Height 5 ft 1 in Weight 171 lb BMI 32.3 BP 111/47 L Blood Pressure Location Rt brachial Position Sitting Pulse 59 Pulse Source Doppler Pulse Oximetry (%) 94 Oxygen Delivery Method Room Air Intake Visit Reasons: dyspnea/hypoxemia Allergies cimetidine [From TAGAMET] Allergy (Unknown, Verified 10/06/24 14:48) HIVES HPI HPI dyspnea/hypoxemia: Details: 73-year-old lady, former 100+ pack-year smoker, quit 2007 at the time of CABG referred for evaluation of pulmonary component to her dyspnea on exertion. Patient does complain of dyspnea after walking for several 100 yd, she also complains of intermittent wheezing not related to activity. She has tried using her 's ProAir with some improvement. Patient denies having recent pulmonary function testing. Her in office spirometry shows FEV1 of 67%, but no fixed obstruction. Her CT chest demonstrates left upper nodule now at approximately [address] chest in 2007 at approximately 5 mm and right basilar nodule now at 12 mm and in 2008 at approximately 10 mm. After the last office visit patient was evaluated by her primary care and noted to be hypoxic on routine vital signs, she was started on supplemental oxygen at 2-3 L. [facility] Medical History Diabetes Hyperlipidemia HTN (hypertension) CAD (coronary artery disease) Exertional angina Surgical History Hx of colonoscopy Hx of CABG Hx of cardiac cath Family History Father CVD (cardiovascular disease) Mother No problems noted. Brother CVD (cardiovascular disease) Social History (Updated 03/09/24 @ 13:28 by Hien Negrete Mona) Patient Tobacco Use Status: Former Tobacco user Tobacco use type: Cigarette Years Smoked: quit 2007, started at 17, 2ppd Review of Systems Const Denies daytime sleepiness, Denies excessive sweating, Denies fatigue, Denies fever(s), Denies lethargy, Denies malaise, Denies night sweats, Denies snoring and Denies weight loss Eyes Denies blurry vision and Denies itchy eyes ENT Denies nasal congestion, Denies post nasal drip, Denies sinus pain, Denies sinus pressure and Denies other ( Thrush) Card Denies chest pain, Denies pedal edema, Denies dyspnea, Denies orthopnea and Denies paroxysmal nocturnal dyspnea Resp Denies cough, Denies hemoptysis, Denies excessive phlegm production, Denies dyspnea, Denies snoring and Denies wheezing GI Denies abdominal pain and Denies heartburn Musc Denies myalgias, Denies arthralgias and Denies joint swelling Skin/Breast Denies rash Neuro Denies memory loss and Denies seizure-like activity Psych Denies abnormal sleep pattern, Denies anxiety and Denies memory loss Endo Denies excessive sweating, Denies fatigue and Denies heat intolerance Anatoly/Lymph Denies easy bruising Aller/Immun Denies itchy eyes, Denies seasonal rhinorrhea and Denies wheezing Physical Exam Vital Signs: Last Vital Signs Pulse 59 10/06/24 14:44 BP 111/47 L 10/06/24 14:44 Pulse Ox 94 10/06/24 14:44 Oxygen Delivery Method Room Air 10/06/24 14:44 BMI result Body Mass Index 32.3 Const General: no acute distress and alert Nutritional Appearance: not obese Orientation/consciousness: Other orientation findings ( oriented) HEENT Head: Yes atraumatic Eyes General: appearance normal, both eyes and all related structures Sclerae: sclerae normal EOM: EOMs intact bilaterally Neck Neck: Yes supple Lymphatic: no lymphadenopathy noted Resp Effort & Inspection: normal respiratory effort and no use of accessory muscles Auscultation: clear to auscultation bilaterally Cardio Rate: regular rate Rhythm: regular rhythm Heart sounds: no gallops, no murmurs and no rubs Skin General skin exam: other ( warm) Extrem General: No clubbing, No cyanosis and No edema Office Procedures 6 Minute Walk Time:: 15:20 SPO2 % at rest: 86 Pulse at rest: 63 SPO2 % during excercise: 87 Pulse during excercise: 74 SPO2 % after excercise: 95 Pulse after excercise: 60 Distance in yards walked: 200 Merna Score: 3 Performance Observations:: Nikkie's SPO2 on room air was 86%, O2 started at 2 lpm her SPO2 recovered to 92%. She walked unassisted for 50 yards before her SPO2 dropped to 87% o2 again increased to 3 lpm and her SPO2 recovered to 92%. 55111 - 6 Minute Walk Assessment & Plan Assessment & Plan (1) Supplemental oxygen dependent: Code(s): Z99.81 - Dependence on supplemental oxygen Category: Medical Plan: 6 minute walk test/supplemental oxygen evaluation performed, patient requires supplemental oxygen at 2-3 L to maintain oximetry with exertion. (2) Emphysema of lung: Code(s): J43.9 - Emphysema, unspecified Category: Medical Plan: Continue Anoro and albuterol MDI. Will repeat PFT. (3) Abnormal CT scan, chest: Code(s): R93.89 - Abnormal findings on diagnostic imaging of other specified body structures Category: Medical Plan: Possible early fibrosis, will repeat CT chest to evaluate for changes. Orders: Orders AMB 6 minute walk Today J43.9 - Emphysema, unspecified PFT pulmonary function test Today J43.9 - Emphysema, unspecified CT chest wo IV con Today R93.89 - Abnormal findings on diagnostic imaging of other specified body structures CA echo transthorac w con Today R06.09 - Other forms of dyspnea Coding Level of Care Code Est Pt Level 4 (59646) Complex EM visit Add On G2211 Diagnoses Supplemental oxygen dependent Z99.81 Emphysema of lung J43.[address] scan, chest R93.89 CPT Codes Coding ([id number])
[2024-10-06 15:32] VITALS: PULSE 63; O2SAT 86
== END 2024-10-06 15:34 | disposition home or self-care (01) ==
PROVIDERS: PCP Internal Medicine; Visit Provider Internal Medicine Pulmonary Disease
DX: Z99.81 Dependence on supplemental oxygen (principal); J43.9 Emphysema, unspecified; R93.89 Abnormal findings on diagnostic imaging of other specified body structures
CPT/HCPCS: 94618; 99214; G2211

== ENCOUNTER → 2024-10-06 14:32 | Outpatient (BNVA) | payer MEDICARE, SELFPAY | PROVIDERS: PCP Internal Medicine; Visit Provider Internal Medicine Pulmonary Disease | DX: J43.9 Emphysema, unspecified (principal); R93.89 Abnormal findings on diagnostic imaging of other specified body structures; Z99.81 Dependence on supplemental oxygen; Z87.891 Personal history of nicotine dependence | CPT/HCPCS: 94618; 99212 ==

== ENCOUNTER → 2024-10-28 10:41 | Outpatient (REF) | payer MEDICARE, SELFPAY ==
--- NOTE | 2024-10-28 10:45 | CA_ITS ---
Transthoracic Echocardiogram Patient (Last, First, Middle): Nikkie Alonso L Gender: Female Date of : 1950 Age: 73 Procedure Date: 10/28/2024 Procedure Type: Transthoracic Echocardiogram Location: OP Height: 154.94 cm Weight: 77.57 kg BSA: 1.77 m2 Heart Rate: bpm BP: 111 / 47 mmHg Speaker Mounter: GHADA Referring MD: Speedy Posada MD Symptoms: R06.09 - Other forms of dyspnea Study Quality: Fair ECG Rhythm: Sinus Conclusions: - The left ventricular systolic function is normal. The calculated ejection fraction is 66% by biplane method. - There is mild calcification of the aortic valve. - Moderate pulmonary hypertension is present. Findings Left Ventricle Normal left ventricular cavity size. There is normal left ventricular wall thickness. The left ventricular systolic function is normal. The calculated ejection fraction is 66% by biplane method. There is no evidence of regional wall motion abnormalities. Diastolic function is normal for age. LV peak GLS -21.8%. Right Ventricle Mildly increased right ventricular cavity size. There is normal right ventricular systolic function. Atria The left atrium is mildly dilated. The right atrium is normal in size. Aortic Valve There is a normal trileaflet aortic valve. There is mild calcification of the aortic valve. There is no aortic valve stenosis. There is no aortic valve regurgitation. Mitral Valve The mitral valve appears normal. There is trace mitral valve regurgitation. There is no mitral valve stenosis. Pulmonic Valve The pulmonic valve is likely normal. Tricuspid Valve There is mild tricuspid valve regurgitation. The right ventricular systolic pressure is 58 mmHg. Moderate pulmonary hypertension is present. Great Vessels The asc aorta and aortic arch are normal in size. Small plaque is seen in the sinuses of Valsalva. Venous The inferior vena cava is normal in size and collapses less than 50% with inspiration. Pericardium/Pleural There is no evidence of pericardial effusion. Prior Study Comparison Changes noted compared to prior study dated: 02/28/2024. see comment on pulmonary hypertension. Measurements 2D Linear Measurements IVSd: 0.85 0.6-0.9/0.6-1.0 cm LVIDd: 5.51 3.9-5.3/4.2-5.9 cm LVIDd Index: 3.11 2.4-3.2/2.2-3.1 cm/m2 LVIDs: 3.44 2.0-3.6 cm LVPWd: 0.91 0.7-1.1 cm LA Diam: 4.60 2.7-3.8/3.0-4.0 cm LAIDs Index: 2.60 1.5-2.3 cm/m2 LV Mass: 224.32 67-162/88-224 g LV Mass Index: 126.73 43-95/49-115 g/m2 LVOT Diam: 2.00 3.0+(-)1.3 cm 2D Systolic Function EF 4C: 68.90 >55% EF 2C: 62.90 >55% EF BiP: 66.40 >55% Mitral Valve MV Pk E: 1.05 MV PK A: 0.75 MV Decel Time: 162.00 E/A: 1.40 E'Lateral: 10.10 E'Medial: 9.14 E/E' Med: 11.50 E/E' Lat: 10.40 PHT: 48.00 MVA PHT: 4.58 Decel Kent: 6.50 Aortic Valve AoV Pk Iglesia: 1.64 AoV Mn Iglesia: 0.94 AoV VTI: 0.37 AoV Pk Grad: 11.00 Aov Mn Grad: 4.00 EMILY Cont.VTI: 2.42 LVOT LVOT Pk Iglesia: 1.42 LVOT Mn Iglesia: 0.81 LVOT VTI: 0.29 LVOT Pk Grad: 8.00 LVOT Mn Grad: 3.00 LVOT Diam: 2.00 LVOT Area: 3.14 Diastolic Function MV Pk E: 1.05 MV Pk A: 0.75 E/A: 1.40 E'Medial: 9.14 E/E' Med: 11.50 E' Laterial: 10.10 E/E' Lat: 10.40 Right Ventricle TAPSE (mm): 20.90 TVS' Iglesia: 10.10 Tricuspid Valve TR Pk Iglesia: 3.53 TR Pk Grad: 50.00 RA Press: 8.00 RVSP: 58.00 Great Vessels Aorta Sinus of Valsalva: 3.41 2.0-3.[address] [place]: 2.13 1.7-3.4 cm Ao Asc: 2.90 2.1-3.4 cm Ao Arch: 2.70 Updated in Other Vendor System with Status of Final Tommie Galvan MD electronically signed on 10/28/2024 3:25:42 PM with status of Final
== END ==
LOC: HO.CARD 10:41
PROVIDERS: PCP Internal Medicine; Visit Provider Internal Medicine Pulmonary Disease
DX: R06.09 Other forms of dyspnea (principal)
CPT/HCPCS: 93306

== ENCOUNTER → 2024-10-28 10:45 | Outpatient (BNV) | payer MEDICARE, SELFPAY | PROVIDERS: PCP Internal Medicine; Visit Provider Internal Medicine | DX: I27.20 Pulmonary hypertension, unspecified (principal); I35.8 Other nonrheumatic aortic valve disorders | CPT/HCPCS: 93306; 93356 ==

== ENCOUNTER 2024-11-12 10:20 | Outpatient (REF) | payer MEDICARE, SELFPAY ==
--- NOTE | 2024-11-12 10:39 | PFT_ITS ---
Indication: Emphysema Spirometry [FEV1 to FVC 85%; FEV1 1.4 L; FVC 1.74 L. no significant response to bronchodilators noted.] Lung Volumes [Total lung capacity 64% predicted; residual volume 67% predicted; expiratory reserve volume 67% predicted] Diffusion Capacity [DLCO 53% predicted] Comparisons [None] Interpretation [No obstructive ventilatory defects. No significant response to bronchodilators noted. There is a restrictive ventilatory defect consistent with mild restrictive lung disease. In addition there is a moderate diffusion impairment. Clinical correlation warranted. MTDD
[2024-11-12 11:25] VITALS: PULSE 57; O2SAT 92
== END 2024-11-12 10:21 | disposition home or self-care (01) ==
LOC: HO.RESP 10:20
PROVIDERS: PCP Internal Medicine; Visit Provider Internal Medicine Pulmonary Disease
DX: J43.9 Emphysema, unspecified (principal)
CPT/HCPCS: 94010; 94640; 94727; 94729

== ENCOUNTER → 2024-11-12 10:39 | Outpatient (BNV) | payer MEDICARE, SELFPAY | PROVIDERS: PCP Internal Medicine; Visit Provider Hospitalist | DX: J43.9 Emphysema, unspecified (principal) | CPT/HCPCS: 94060; 94727; 94729 ==

== ENCOUNTER 2024-11-13 14:05 | Outpatient (REF) | payer MEDICARE, SELFPAY ==
--- NOTE | ~2024-11-13 | CT_ITS ---
EXAMINATION: CT CHEST WITHOUT CONTRAST CLINICAL INFORMATION: Abnormal findings on diagnostic imaging. COMPARISON: April 03, 2024 demonstrated pulmonary nodules. TECHNIQUE: Multidetector volumetric CT imaging of the chest was done. Axial MIP volume rendering provided. Sagittal and coronal reformatted images were obtained. This CT examination was performed using dose optimization techniques as appropriate, variously including the following: *Automated exposure control *Adjustment of mA and/or kV according to patient size (this includes techniques or standardized protocols for targeted exams where dose is matched to indication/reason for exam; i.e. extremities or head) *Use of iterative reconstruction technique DLP: 145 mGy centimeter. FINDINGS: BUSINESS ANALYSIS PROFESSIONAL: Large patient's body habitus. Sternal wires. LUNGS: There is a 5 mm noncalcified pulmonary nodule in the periphery of the apical posterior segment left upper lung lobe. There is an 11 mm noncalcified pulmonary nodule in the periphery of the right lower lung lobe. There is honeycombing in the periphery of the lungs. There is a patchy pulmonary groundglass. Respiratory where is patent. MEDIASTINUM: Multiple prominent with a fatty hilum mediastinal lymph nodes. Nonspecific. No pericardial effusion. Sternal wires and vascular clips in the mediastinum. Calcified plaques in the thoracic aorta its main branches and the coronary arteries. No aneurysm, thoracic aorta. The heart is not enlarged. CORONARY ARTERY CALCIFICATION: Calcified plaques. PLEURA: No pleural effusion. No pneumothorax. AXILLA: No lymphadenopathy. UPPER ABDOMEN: Calcified plaque splenic artery. OSSEOUS STRUCTURES: Mild multilevel thoracic and upper lumbar spondylosis. No acute fracture or gross listhesis. No lytic or blastic lesions. CT/CT chest wo IV con IMPRESSION: Noncalcified pulmonary nodules, 5 and 11 mm, left upper lung lobe and right lower lung lobe respectively. Stable. Interstitial lung disease without acute airspace disease. Coronary artery disease and atherosclerosis disease. Fleischner guidelines were followed. Electronically signed by: Marvin Whitehead MD 11/13/2024 03:44 PM EDT
== END 2024-11-13 14:06 | disposition home or self-care (01) ==
LOC: HO.CT 14:05
PROVIDERS: PCP Internal Medicine; Visit Provider Internal Medicine Pulmonary Disease
DX: R93.89 Abnormal findings on diagnostic imaging of other specified body structures (principal)
CPT/HCPCS: 71250

== ENCOUNTER → 2024-11-13 14:09 | Outpatient (BNV) | payer MEDICARE, SELFPAY | PROVIDERS: PCP Internal Medicine; Visit Provider Radiology Diagnostic Radiology | DX: R91.8 Other nonspecific abnormal finding of lung field (principal); J84.9 Interstitial pulmonary disease, unspecified; I25.10 Atherosclerotic heart disease of native coronary artery without angina pectoris | CPT/HCPCS: 71250 ==

== ENCOUNTER 2024-11-19 13:28 | Outpatient (AMB) | payer MEDICARE, SELFPAY ==
[2024-11-19 13:29] VITALS: BP 122/58; PULSE 68; O2SAT 94; BMI 32.5
--- NOTE | 2024-11-19 13:29 | MHC.OFFVIS ---
Vital Signs 11/19/24 13:29 Height 5 ft 1 in Weight 171 lb 15.369 oz BMI 32.5 BP 122/58 L Blood Pressure Location Rt brachial Position Sitting Pulse 68 Pulse Source Doppler Pulse Oximetry (%) 94 Oxygen Delivery Method Nasal Cannula Oxygen Flow Rate 2 Intake Visit Reasons: Dyspnea Allergies cimetidine [From TAGAMET] Allergy (Unknown, Verified 10/06/24 14:48) HIVES HPI HPI Dyspnea: Details: 74-year-old lady, former 100+ pack-year smoker, quit 2007 at the time of CABG, now followed for pulmonary emphysema and pulmonary fibrosis on supplemental oxygen at 2-3 L continuous flow. Patient continues on Anoro and albuterol MDI/nebs with slowly worsening symptom control. She did complete her 2D echocardiogram that shows moderate pulmonary hypertension. Her CT chest shows pulmonary emphysema and pulmonary fibrosis. Her pulmonary function test shows underlying moderate restrictive ventilatory defect. She denies acute exacerbations. [facility] Medical History Diabetes Hyperlipidemia HTN (hypertension) CAD (coronary artery disease) Exertional angina Surgical History Hx of colonoscopy Hx of CABG Hx of cardiac cath Family History Father CVD (cardiovascular disease) Mother No problems noted. Brother CVD (cardiovascular disease) Social History (Updated 03/09/24 @ 13:28 by Hien Negrete [facility]) Patient Tobacco Use Status: Former Tobacco user Tobacco use type: Cigarette Years Smoked: quit 2007, started at 17, 2ppd Review of Systems Const Denies daytime sleepiness, Denies excessive sweating, Denies fatigue, Denies fever(s), Denies lethargy, Denies malaise, Denies night sweats, Denies snoring and Denies weight loss Eyes Denies blurry vision and Denies itchy eyes ENT Denies nasal congestion, Denies post nasal drip, Denies sinus pain, Denies sinus pressure and Denies other ( Thrush) Card Denies chest pain, Denies pedal edema, Denies dyspnea, Reports dyspnea on exertion, Denies orthopnea and Denies paroxysmal nocturnal dyspnea Resp Denies cough, Denies hemoptysis, Denies excessive phlegm production, Denies dyspnea, Reports dyspnea on exertion, Denies snoring and Denies wheezing GI Denies abdominal pain and Denies heartburn Musc Denies myalgias, Denies arthralgias and Denies joint swelling Skin/Breast Denies rash Neuro Denies memory loss and Denies seizure-like activity Psych Denies abnormal sleep pattern, Denies anxiety and Denies memory loss Endo Denies excessive sweating, Denies fatigue and Denies heat intolerance Anatoly/Lymph Denies easy bruising Aller/Immun Denies itchy eyes, Denies seasonal rhinorrhea and Denies wheezing Physical Exam Vital Signs: Last Vital Signs Pulse 68 11/19/24 13:29 BP 122/58 L 11/19/24 13:29 Pulse Ox 94 11/19/24 13:29 Oxygen Delivery Method Nasal Cannula 11/19/24 13:29 Oxygen Flow Rate 2 11/19/24 13:29 BMI result Body Mass Index 32.5 Const General: no acute distress and alert Nutritional Appearance: not obese Orientation/consciousness: Other orientation findings ( oriented) HEENT Head: Yes atraumatic Eyes General: appearance normal, both eyes and all related structures Sclerae: sclerae normal EOM: EOMs intact bilaterally Neck Neck: Yes supple Lymphatic: no lymphadenopathy noted Resp Effort & Inspection: normal respiratory effort and no use of accessory muscles Auscultation: clear to auscultation bilaterally Cardio Rate: regular rate Rhythm: regular rhythm Heart sounds: no gallops, no murmurs and no rubs Skin General skin exam: other ( warm) Extrem General: No clubbing, No cyanosis and No edema Assessment & Plan Assessment & Plan (1) Pulmonary fibrosis: Code(s): J84.10 - Pulmonary fibrosis, unspecified Category: Medical (2) Emphysema of lung: Code(s): J43.9 - Emphysema, unspecified Category: Medical (3) Pulmonary nodules: Code(s): R91.8 - Other nonspecific abnormal finding of lung field Category: Medical (4) Supplemental oxygen dependent: Code(s): Z99.81 - Dependence on supplemental oxygen Category: Medical (5) Pulmonary hypertension: Code(s): I27.20 - Pulmonary hypertension, unspecified Category: Medical Plan Combined pulmonary emphysema and fibrosis with restrictive ventilatory defect. Now requiring supplemental oxygen at 2-3 L continuous flow. Continue supplemental oxygen. 2D echocardiogram with moderate pulmonary hypertension, likely secondary to underlying pulmonary disease, sildenafil is contraindicated in patients on nitrates. Continue Anoro and albuterol MDI/nebs. Coding Level of Care Code Est Pt Level 4 (87275) Complex EM visit Add On G2211 Diagnoses Pulmonary fibrosis J84.10 Emphysema of lung J43.9 Pulmonary nodules R91.8 Supplemental oxygen dependent Z99.81 Pulmonary hypertension I27.20
== END 2024-11-19 13:59 | disposition home or self-care (01) ==
LOC: HO.HPS 13:28
PROVIDERS: PCP Internal Medicine; Visit Provider Internal Medicine Pulmonary Disease
DX: J84.10 Pulmonary fibrosis, unspecified (principal); J43.9 Emphysema, unspecified; R91.8 Other nonspecific abnormal finding of lung field; Z99.81 Dependence on supplemental oxygen; I27.20 Pulmonary hypertension, unspecified
CPT/HCPCS: 99214; G2211

== ENCOUNTER → 2024-11-19 13:28 | Outpatient (BNVA) | payer MEDICARE, SELFPAY | PROVIDERS: PCP Internal Medicine; Visit Provider Internal Medicine Pulmonary Disease | DX: J84.10 Pulmonary fibrosis, unspecified (principal); J43.9 Emphysema, unspecified; R91.8 Other nonspecific abnormal finding of lung field; I27.20 Pulmonary hypertension, unspecified; Z99.81 Dependence on supplemental oxygen; Z87.891 Personal history of nicotine dependence | CPT/HCPCS: 99212 ==

== ENCOUNTER 2025-01-20 10:15 | Outpatient (REF) | payer MEDICARE, SELFPAY ==
--- OUTSIDE RECORDS SUMMARY | 2025-01-20 10:55 | XMS_ITS | Patient Health Record ---
Author Organization [facility] Address [address] [place] [address] Care Team Providers Care Telephone Order Supervisor Name Role Phone Barak Stoddard MD Primary Care Provider Arturo Tran Unavailable [phone] Allergies Allergen (clinical drug ingredient) Drug/Non Drug Allergy documented on EMR Reaction Allergy Type Onset Date Status cimetidine Tagamet HB hives Drug Allergy Activ e Reason For Referral No Information Medications Medication SIG (Take, Route, Frequency, Duration) Notes Start Date End Date Status Metoprolol Tartrate 25 MG 1 tablet Orall y Twice a day Active metFORMIN HCl 500 MG 1 tablet with meals Orally Twice a day Active hydroCHLOROthiazide 12.5 MG 1 capsule Or ally Once a day Not-Taking Losartan Potassium 50 MG 1 tablet Orally twice a day Active Crestor 20 MG 1 tablet Orally Once a day Not-Taking Aspirin 81 MG 1 tablet Orally Once a day Not-Taking ALPRAZolam 1 MG 1 tablet Orally Twice a day Active Fish Oil 1000 MG 1 capsule Orally Once a day Active Vitamin D 1000 UNIT 1 tablet Orally Once a day Active [place] 0.025 % 1 drop into affected eye Ophthalmic Twice a day Not-Taking Alprazolam & Diet Manage Pro d 1.5 Orally Active Allergy 10 MG 1 tablet Orally Once a day Not-Taking Acid Acid Maker 10 MG 1 tablet as needed Orally Once a day Active ASA 1 tab Oral for 14 days Active Tylenol PRN Active Rosuvastatin Calcium 20 MG 1 tablet Oral ly Once a day for 30 day(s) Active MiraLax Active Isosorbide Mononitrate ER 30 MG 1 tablet in the morning Orally Once a day for 30 day(s) Active Magnesium 500 MG 1 tablet with a meal Orally Once a day for 30 day(s) Active Social History Tobacco Use: Social History Observation Description Date Details (start date - stop date) Former Smoker NA - NA Tobacco Use/Smoking Question Answer Notes Are you a: former smoker Additional Findings: Tobacco Non-User Current no n-smoker Alcohol Screen Question Answer Notes Did you have a drink containing alcohol in the p ast year? Yes Points 0 Interpretation Negative Tobacco use other than smoking: Question Answer Notes Are you an other tobacco user? No Problems Problem Type SNOMED Code ICD Code Onset Dates Problem Status W/U Status Risk Notes Problem Bursitis (30414519) Bursitis (727.3) Active confirmed Problem Neurologic disorder associated with type II diabetes mellitus (357698334) Diabetic - NIDDM/Neuropat hy (250.60) Active confirmed Problem Hallux valgus (909990400) Hallux Valgus (735.0) Active confirmed Problem Myositis (42457914) Myositis (729.1) Active confirmed Problem Pain in limb (49620767) Pain in Limb (729.5) Active confirmed Problem Plantar fasciitis (341405618) Plantar Fasciitis (728.71) Active confirmed Problem Calcaneal spur (43460308) Calcaneal spur (726.73) Active confirmed Plan Of Treatment Pending Test Test Name Order Date X ray : Foot, right 2V 02/04/2014 Insurance Providers Payer Name Payer Address Payer Phone Subscriber Number Group Number Insured Name Patient Relationship to Insured Coverage Start Date Coverage End Date Medicare National Govt Sv[employer] [address] [place] [phone] [id number] Nikkie Alonso Self - patient is the insured [facility] [address] [place] [address] [phone] [id number] Nikkie Alonso Self - patient is the insured Medical (General) History Medical History History ICD Code Anxiety Back,Hip,and Knee pain Broken bones Cancer Depression type II diabetes Heart disease High blood pressure Sciatica Measles Mumps Chicken pox Hyperthyroidism Hypercholesterolemia Hyperlipidemia Osteopenia Angina CAD (Cholesterol) Surgical History Surgery Date(Month/Year) coli-rectal cancer 1997 triple bypass 1999
[2025-01-20 13:20] LABS: MANUAL DIFF FLAG NO
[2025-01-20 13:24] LABS: Basophils Percent Auto 0.1 % (0-2); Eosinophils Absolute Auto 0.2 X10*3/uL (0.0-0.4); Eosinophils Percent Auto 2.6 % (0-4); Hematocrit 41.6 % (37.0-47.0); Imm Gran Abs Auto 0.02 X10*3/uL (0.00-0.03); Imm Gran Pct Auto 0.3 % (0.0-0.4); Lymphocytes Absolute Auto 1.5 X10*3/uL (1.2-4.9); Lymphocytes Percent Auto 19.3 % (20-40); Mean Corpuscular HGB Conc 31.3 g/dl (31.0-35.0); Mean Corpuscular Hemoglobin 25.8 pg (27.0-33.0); Mean Corpuscular Volume 82.7 fL (80.0-98.0); Monocytes Absolute Auto 0.5 X10*3/uL (0.1-1.2); Monocytes Percent Auto 6.2 % (2-11); Neutrophils Absolute Auto 5.7 x10*3/uL (2.0-8.3); Neutrophils Percent Auto 71.5 % (45-73); Platelet Count 261 X10*3/uL (160-400); Red Blood Count 5.03 X10*6/uL (4.20-5.50); White Blood Count 7.9 X10*3/uL (4.8-10.8)
[2025-01-20 13:31] LABS: Estimated Average Glucose 177 mg/dL; Hemoglobin A1c % 7.8 % (<6.0)
[2025-01-20 14:22] LABS: Alanine Aminotransferase 26 U/L (0-31); Albumin Level 4.2 g/dL (3.5-5.0); Alkaline Phosphatase 71 U/L (39-117); Anion Gap 10 (12-20); Aspartate Amino Transferase 40 U/L (5-31); Bilirubin Total 0.7 mg/dL (0.0-1.0); Blood Urea Nitrogen 9 mg/dL (9-16); Calcium 9.9 mg/dL (8.4-10.2); Carbon Dioxide 28 mmol/L (22-29); Chloride 105 mmol/L (96-108); Estimated Glomerular Filt Rate > 60; Glucose Random 158 mg/dL (60-115); Potassium 4.1 mmol/L (3.3-5.1); Sodium 139 mmol/L (135-145); TSH reflex Free T4 1.89 uIU/mL (0.32-4.0); Total Protein 7.5 g/dL (6.5-8.0)
== END 2025-01-20 10:16 | disposition home or self-care (01) ==
LOC: HO.HMGCLDS 10:15
PROVIDERS: PCP Internal Medicine; Visit Provider Internal Medicine
DX: E11.9 Type 2 diabetes mellitus without complications (principal); I10 Essential (primary) hypertension; I25.10 Atherosclerotic heart disease of native coronary artery without angina pectoris; Z79.4 Long term (current) use of insulin; J43.9 Emphysema, unspecified
CPT/HCPCS: 36415; 80053; 83036; 84443; 85025

== ENCOUNTER 2025-01-28 13:04 | Outpatient (AMB) | payer MEDICARE, SELFPAY ==
[2025-01-28 13:23] VITALS: BP 120/82; PULSE 65; BMI 33.3
--- NOTE | 2025-01-28 13:23 | A.OFFVIS_ITS ---
Vital Signs 01/28/25 13:23 Height 5 ft 1 in Weight 176 lb 5.917 oz BMI 33.3 BP 120/82 Blood Pressure Location Lt brachial Position Sitting Pulse 65 Intake Visit Reasons: 1 yr f/up Intake Note: 1 year follow-up with ekg c/o increased sob Utility Division Project Manager Required: No Allergies cimetidine [From TAGAMET] Allergy (Unknown, Verified 10/06/24 14:48) HIVES Medication List - Last Reconciled 01/28/25 by Albin Vasquez MD albuterol sulfate 90 mcg/actuation inhalation albuterol sulfate 90 mcg/actuation 2 puffs inhalation 6XD PRN alprazolam 1 mg PO BID PRN amlodipine 5 mg PO DAILY ascorbate calcium (vitamin C) 500 mg PO BID aspirin (Adult Aspirin Regimen) 81 mg PO DAILY escitalopram oxalate 10 mg PO DAILY furosemide 20 mg PO QAM ibuprofen 800 mg PO Q8H PRN isosorbide mononitrate ER 30 mg PO DAILY losartan 50 mg PO BID magnesium 250 mg PO DAILY metformin ER 500 mg PO BID metoprolol tartrate 25 mg PO BID omega 3-rtg-jwc-fish oil 1,200 (144-216) mg (Fish Oil) caps PO omeprazole 20 mg PO DAILY rosuvastatin 20 mg PO BEDTIME umeclidinium-vilanterol 62.5-25 mcg/actuation (Anoro Ellipta) 1 inh inhalation DAILY 30 days HPI Comments Details: Nikkie comes for follow-up. She is currently on oxygen for chronic hypoxemic respiratory failure, she has pretty significant hypoxemia at rest without oxygen. Echocardiogram shows moderate elevation right ventricular systolic pressure consistent with hypoxia related pulmonary hypertension. She has no orthopnea, PND, leg edema. She has no anginal symptoms. Takes all her medications. She says she does not want any aggressive interventional therapy. She takes all her medications. [facility] Medical History Diabetes Hyperlipidemia HTN (hypertension) CAD (coronary artery disease) Exertional angina Surgical History Hx of colonoscopy Hx of CABG Hx of cardiac cath Family History Father CVD (cardiovascular disease) Mother No problems noted. Brother CVD (cardiovascular disease) Social History Patient Tobacco Use Status: Former Tobacco user Tobacco use type: Cigarette Years Smoked: quit 2007, started at 17, 2ppd Review of Systems Const Denies chills, Denies fatigue, Denies fever(s), Denies frequent falls, Denies weakness, Denies weight gain and Denies weight loss ENT Denies dizziness Card Denies chest pain, Denies leg edema, Denies lightheadedness, Denies palpitations, Denies dyspnea, Denies dyspnea on exertion, Denies orthopnea and Denies other (loss of consciousness) Resp Denies cough, Denies dyspnea and Denies dyspnea on exertion GI Denies hematochezia and Denies change in stool character Musc Denies abnormal gait, Denies muscle weakness, Denies numbness, Denies radiating pain into limb and Denies tingling Neuro Denies abnormal gait, Denies dizziness, Denies frequent falls, Denies numbness, Denies tingling and Denies weakness Endo Denies fatigue and Denies palpitations Physical Exam Vital Signs: Last Vital Signs Pulse 65 01/28/25 13:23 BP 120/82 01/28/25 13:23 BMI result Body Mass Index 33.3 Const General: cooperative, comfortable, alert, awake and well groomed Nutritional Appearance: overweight Orientation/consciousness: patient oriented x3 Limitations: no limitations Neck Neck: Yes trachea midline, Yes supple and Yes no JVD Resp Effort & Inspection: normal respiratory effort Auscultation: clear to auscultation bilaterally, crackles (coarse) on the right and diminished lung sounds Cardio Jugular venous distension: no JVD Palpation: normal PMI Rate: regular rate Rhythm: regular rhythm Heart sounds: S1 normal heart sound present and S2 normal heart sound present Peripheral pulses: Peripheral pulses 2+ throughout GI Auscultation: normal bowel sounds Skin General skin exam: no rashes or lesions noted Neuro General: patient oriented x3 and no focal motor deficits Extrem General: Yes no clubbing, cyanosis or edema Psych Appearance: grossly normal Office Procedures EKG Details: EKG shows normal sinus rhythm with PACs with incomplete right bundle-branch block, no significant ischemic changes [id number], Complete Assessment & Plan Assessment & Plan (1) Pulmonary hypertension: Code(s): I27.20 - Pulmonary hypertension, unspecified Category: Medical Plan: Pulmonary hypertension in his secondary to significant hypoxemic respiratory failure suggestive of cor pulmonale. At this point time she has no signs or symptoms right heart failure. Importance of oxygen therapy was discussed and should be used [id number] including at rest and probably increase the rate while she is exercising. This was discussed with her. (2) CAD (coronary artery disease): Code(s): I25.10 - Atherosclerotic heart disease of [place] coronary artery without angina pectoris Category: Medical Plan: CAD with remote coronary artery bypass grafting. Current time continued medical therapy and conservative therapy. She wants no interventional even if she has any significant anginal symptoms. Continue current therapy including aspirin as well as high-intensity statin therapy along with ezetimibe therapy. Continue dual antianginal therapy. Will follow up in the clinic in 1 year's time, sooner p.r.n.. Coding Level of Care Code Est Pt Level 4 (23891) Complex EM visit Add On G2211 Diagnoses Pulmonary hypertension I27.20 CAD (coronary artery disease) I25.10 CPT Codes EKG - CPT: 57307-Wlqudmpulhzxyozir, Complete ([id number])
--- OUTSIDE RECORDS SUMMARY | 2025-01-28 15:12 | XMS_ITS | Patient Health Record ---
Author Organization [facility] Address [address] [place] [address] Care Team Providers Care Ware Dresser Name Role Phone Barak Stoddard MD Primary Care Provider Arturo Tran Unavailable [phone] Allergies Allergen (clinical drug ingredient) Drug/Non Drug [...] tablet Orally Once a day Not-Taking Acid Shellacker 10 MG 1 tablet as needed Orally [...] Status W/U Status Risk Notes Problem Bursitis (52267951) Bursitis (727.3) Active confirmed Problem Neurologic disorder associated with type II diabetes mellitus (249136881) Diabetic - NIDDM/Neuropat hy (250.60) Active confirmed Problem Hallux valgus (219508318) Hallux Valgus (735.0) Active confirmed Problem Myositis (48210320) Myositis (729.1) Active confirmed Problem Pain in limb (13680218) Pain in Limb (729.5) Active confirmed Problem Plantar fasciitis (391004494) Plantar Fasciitis (728.71) Active confirmed Problem Calcaneal spur (19943535) Calcaneal spur (726.73) Active confirmed Plan Of Treatment Pending Test Test Name Order Date X ray : Foot, right 2V 02/04/2014 Insurance Providers Payer Name Payer Address Payer Phone Subscriber Number Group Number Insured Name Patient Relationship to Insured Coverage Start Date Coverage End Date Medicare National Govt Svcs Inc [address] [facility] [place] [phone] [id number] Nikkie Alonso Self - patient is the insured [facility] [address] [place] [address] [phone] [id number] Nikkie Alonso Self - patient is the insured Medical (General) History Medical History History ICD Code Anxiety Back,Hip,and Knee pain Broken bones Cancer Depression type II diabetes Heart disease High blood pressure Sciatica Measles Mumps Chicken pox Hyperthyroidism Hypercholesterolemia Hyperlipidemia Osteopenia Angina CAD (Cholesterol) Surgical History Surgery Date(Month/Year) coli-rectal cancer 1997 triple bypass 1999
== END 2025-01-28 13:47 | disposition home or self-care (01) ==
LOC: HO.HCS 13:05
PROVIDERS: PCP Internal Medicine; Visit Provider Internal Medicine Cardiovascular Disease
DX: I27.20 Pulmonary hypertension, unspecified (principal); I25.10 Atherosclerotic heart disease of native coronary artery without angina pectoris
CPT/HCPCS: 93010; 99214; G2211

== ENCOUNTER → 2025-01-28 13:04 | Outpatient (BNVA) | payer MEDICARE, SELFPAY | PROVIDERS: PCP Internal Medicine; Visit Provider Internal Medicine Cardiovascular Disease | DX: I25.10 Atherosclerotic heart disease of native coronary artery without angina pectoris (principal); I27.20 Pulmonary hypertension, unspecified | CPT/HCPCS: 93005; 99212 ==

== ENCOUNTER 2025-03-24 13:27 | Outpatient (AMB) | payer MEDICARE, SELFPAY ==
[2025-03-24 13:34] VITALS: BP 111/56; PULSE 70; O2SAT 91; BMI 32.7
--- NOTE | 2025-03-24 13:34 | A.OFFVIS_ITS ---
Vital Signs 03/24/25 13:34 Height 5 ft 1 in Weight 173 lb 1.006 oz BMI 32.7 BP 111/56 L Blood Pressure Location Lt brachial Position Sitting Pulse 70 Pulse Source Pulse Oximeter Pulse Oximetry (%) 91 L Oxygen Delivery Method Nasal Cannula Oxygen Flow Rate 2 Intake Visit Reasons: Dyspnea Allergies cimetidine (From TAGAMET) Allergy (Unknown, Verified 10/06/24 14:48) HIVES HPI HPI Dyspnea: Details: 74-year-old lady, former 100+ pack-year smoker, quit 2007 at the time of CABG, now followed for pulmonary emphysema and pulmonary fibrosis on supplemental oxygen at 2-3 L continuous flow. Patient continues on Anoro and albuterol MDI/nebs with slowly worsening symptom control. She did complete her 2D echocardiogram that shows moderate pulmonary hypertension. Her CT chest shows pulmonary emphysema and pulmonary fibrosis. Her pulmonary function test shows underlying moderate restrictive ventilatory defect. She denies acute exacerbations. No significant changes since last visit. FORMERLY [facility], 1928–1983 Medical History Diabetes Hyperlipidemia HTN (hypertension) CAD (coronary artery disease) Exertional angina Surgical History Hx of colonoscopy Hx of CABG Hx of cardiac cath Family History Father CVD (cardiovascular disease) Mother No problems noted. Brother CVD (cardiovascular disease) Social History Patient Tobacco Use Status: Former Tobacco user Tobacco use type: Cigarette Years Smoked: quit 2007, started at 17, 2ppd Review of Systems Const Denies daytime sleepiness, Denies excessive sweating, Denies fatigue, Denies fever(s), Denies lethargy, Denies malaise, Denies night sweats, Denies snoring and Denies weight loss Eyes Denies blurry vision and Denies itchy eyes ENT Denies nasal congestion, Denies post nasal drip, Denies sinus pain, Denies sinus pressure and Denies other ( Thrush) Card Denies chest pain, Denies pedal edema, Denies dyspnea, Reports dyspnea on exertion, Denies orthopnea and Denies paroxysmal nocturnal dyspnea Resp Denies cough, Denies hemoptysis, Denies excessive phlegm production, Denies dyspnea, Reports dyspnea on exertion, Denies snoring and Denies wheezing GI Denies abdominal pain and Denies heartburn Musc Denies myalgias, Denies arthralgias and Denies joint swelling Skin/Breast Denies rash Neuro Denies memory loss and Denies seizure-like activity Psych Denies abnormal sleep pattern, Denies anxiety and Denies memory loss Endo Denies excessive sweating, Denies fatigue and Denies heat intolerance Anatoly/Lymph Denies easy bruising Aller/Immun Denies itchy eyes, Denies seasonal rhinorrhea and Denies wheezing Physical Exam Vital Signs: Last Vital Signs Pulse 70 03/24/25 13:34 BP 111/56 L 03/24/25 13:34 Pulse Ox 91 L 03/24/25 13:34 Oxygen Delivery Method Nasal Cannula 03/24/25 13:34 Oxygen Flow Rate 2 03/24/25 13:34 BMI result Body Mass Index 32.7 Const General: no acute distress and alert Nutritional Appearance: not obese Orientation/consciousness: Other orientation findings ( oriented) HEENT Head: Yes atraumatic Eyes General: appearance normal, both eyes and all related structures Sclerae: sclerae normal EOM: EOMs intact bilaterally Neck Neck: Yes supple Lymphatic: no lymphadenopathy noted Resp Effort & Inspection: normal respiratory effort and no use of accessory muscles Auscultation: clear to auscultation bilaterally Cardio Rate: regular rate Rhythm: regular rhythm Heart sounds: no gallops, no murmurs and no rubs Skin General skin exam: other ( warm) Extrem General: No clubbing, No cyanosis and No edema Assessment & Plan Assessment & Plan (1) Emphysema of lung: Code(s): J43.9 - Emphysema, unspecified Category: Medical (2) Pulmonary fibrosis: Code(s): J84.10 - Pulmonary fibrosis, unspecified Category: Medical (3) Supplemental oxygen dependent: Code(s): Z99.81 - Dependence on supplemental oxygen Category: Medical Plan Combined emphysema and pulmonary fibrosis with stable symptoms on current therapy with Anoro and albuterol MDI/nebs. Continue supplemental oxygen. Will refer to Pulmonary rehab. Orders: Orders Pulmonary Rehab Today J84.10 - Pulmonary fibrosis, unspecified Coding Level of Care Code Est Pt Level 4 (08498) Complex EM visit Add On G2211 Diagnoses Emphysema of lung J43.9 Pulmonary fibrosis J84.10 Supplemental oxygen dependent Z99.81
--- OUTSIDE RECORDS SUMMARY | 2025-03-24 13:58 | XMS_ITS | Patient Health Record ---
Author Organization [facility] Address [address] [place] [address] Care Team Providers Care Improvement Advisor Name Role Phone Barak Stoddard MD Primary Care Provider Arturo Tran Unavailable [phone] Allergies Allergen (clinical drug ingredient) Drug/Non Drug [...] tablet Orally Once a day Not-Taking Acid Lease Out Man 10 MG 1 tablet as needed Orally Once a day Active ASA 1 tab Oral; Duration: 14 days Active Tylenol PRN Active Rosuvastatin Calcium 20 MG 1 tablet Oral ly Once a day; Duration: 30 day(s) Active MiraLax Active Isosorbide Mononitrate ER 30 MG 1 tablet in the morning Orally Once a day; Duration: 30 day(s) Active Magnesium 500 MG 1 tablet with a meal Orally Once a day; Duration: 30 day(s) Active Social History Tobacco Use: [...] Status W/U Status Risk Notes Problem Bursitis (95578139) Bursitis (727.3) Active confirmed Problem Neurologic disorder associated with type II diabetes mellitus (587051945) Diabetic - NIDDM/Neuropat hy (250.60) Active confirmed Problem Hallux valgus (988048758) Hallux Valgus (735.0) Active confirmed Problem Myositis (72135577) Myositis (729.1) Active confirmed Problem Pain in limb (35750268) Pain in Limb (729.5) Active confirmed Problem Plantar fasciitis (430320809) Plantar Fasciitis (728.71) Active confirmed Problem Calcaneal spur (85752813) Calcaneal spur (726.73) Active confirmed Plan Of Treatment Pending Test Test Name Order Date X ray : Foot, right 2V 02/04/2014 Insurance Providers Payer Name Payer Address Payer Phone Subscriber Number Group Number Insured Name Patient Relationship to Insured Coverage Start Date Coverage End Date Medicare National [employer] [address] [place] [address] [phone] [id number] Gavin Nikkie Self - patient is the insured [facility] [address] [place] [address] [phone] [id number] Nikkie Alonso Self - patient is the insured Medical (General) History Medical History History ICD Code Anxiety Back,Hip,and Knee pain Broken bones Cancer Depression type II diabetes Heart disease High blood pressure Sciatica Measles Mumps Chicken pox Hyperthyroidism Hypercholesterolemia Hyperlipidemia Osteopenia Angina CAD (Cholesterol) Surgical History Surgery Date(Month/Year) coli-rectal cancer 1997 triple bypass 1999
--- OUTSIDE RECORDS SUMMARY | 2025-03-24 13:58 | XMS_ITS | Patient Health Record ---
Author Organization [facility] Address [address] [place] [id number] Care Team Providers Care Cut Off Machine Unloader Name Role Phone Barak Stoddard MD Primary Care Provider Csico Sorensen Jr Unavailable Allergies Allergen (clinical drug ingredient) Drug/Non Drug Allergy documented on EMR Reaction Allergy Type Onset Date Status cimetidine Tagamet HB Unknown Drug Allergy Activ e Reason For Referral No Information Medications Medication SIG (Take, Route, Frequency, Duration) Notes Start Date End Date Status Vitamin D 1000 UNIT 1 tablet Orally Once a day Active ALPRAZolam 1 MG 1 tablet Orally Twic e a day Active Fish Oil 1200 MG 1 capsule Orally Onc e a day Active Losartan Potassium 50 MG 1 tablet Orally Once a day Active Tylenol 325 MG 1 tablet as needed O rally every 4 hrs Active Aspirin 81 MG 1 tablet Orally Once a day Active Ranitidine HCl 150 MG 1 capsule at bedti me Orally prn Active metFORMIN HCl 500 MG 1 tablet with a christy l Orally twice a day Active Metoprolol Tartrate 25 MG 1 tablet with food Orally Twice a day Active Rosuvastatin Calcium 20 MG 1 tablet Oral ly Once a day for 30 day(s) Active Tums 500 MG 1 tablet Orally prn Active Magnesium 400 MG 1 tablet Orally Once a day Active Isosorbide Mononitrate ER 30 MG 1 tablet in the morning Orally Once a day for 30 day(s) Active Immunizations Vaccine Route Administration Date Status Comme nts Influenza Unknown 06/25/2018 Administered Social History Tobacco Use: Social History Observation Description Date Details (start date - stop date) Former Smoker NA - NA Tobacco Use/Smoking Question Answer Notes Patient is a former smoker How long has it been since you last smoked? > 10 years Problems Problem Type SNOMED Code ICD Code Onset Dates Problem Status W/U Status Risk Notes Problem 823816305 Colon cancer screening (Z12.11) Active confirmed Problem 725246759 Change in bowel habit (R19.4) Active confirmed Problem 42906884 Hypertension, unspecified type (I10) Active confirmed Plan Of Treatment Future Test Test Name Order Date COLONOSCOPY 05/30/2012 COLONOSCOPY 02/06/2019 Insurance Providers Payer Name Payer Address Payer Phone Subscriber Number Group Number Insured Name Patient Relationship to Insured Coverage Start Date Coverage End Date O [employer] [address] [place] [address] [id number] CEELORA VermaYE Self - patient is the insured Medicare of [place] [employer] [address] [place] [address] [id number] CEELORA VermaYE Self - patient is the insured Medical (General) History Medical History History ICD Code colonoscopy 07/29/13, tubular adenoma x3 , followup due 2016 rectal cancer, status post low anterior resection 1997, T2 lesion coronary artery disease carotid artery disease hypertension elevated cholesterol back problems diabetes Surgical History Surgery Date(Month/Year) tubal ligation coronary artery bypass graft ing in 1999 with catherization in August of 2006 colon resection due to colon cancer in 1 998
--- OUTSIDE RECORDS SUMMARY | 2025-03-24 13:58 | XMS_ITS | Clinical Summary ---
Author Organization [facility] Address [address] [address] Phone Care Team Providers Care Derrick Builder Name Role Phone Barak Stoddard MD Primary Care Provider [phone] Uriel Solares MD Unavailable Cisco Bangura MD Unavailable Elizabeth Pulliam DO Unavailable [phone] Albin Vasquez MD Unavailable [phone] Allergies Active Allergy Reactions Criticality Noted Date Comments Fentanyl 05/26/2021 vomited Fosinopril Cough 02/03/2018 Paroxetine Hcl Other (See Comments) 02/03/2018 parasthesis Cimetidine Rash Low 02/03/2018 Trazodone Palpitations,Lightheadedness Low 018 Medications isosorbide mononitrate (IMDUR) 30 MG 24 hr tablet Take 1 tablet by mouth daily. Active Medication-Free Text Take 1 tablet by mouth once a week. As needed Allergy Relief Tablet Active DOCOSAHEXANOIC ACID/EPA (FISH OIL ORAL) one daily Orally Act dasia aspirin 81 MG EC tablet Take 1 tablet by mouth daily. Active famotidine (PEPCID) 20 MG tabletIndications :Gastroesophageal reflux disease without esophagitis Take 1 tablet (20 mg total) by mouth nightly at bedtime as needed for heartburn. 90 tablet 3 05/22/20 19 Active Additional Information Patient not taking.Reported on 02/24/2025 cholecalciferol (VITAMIN D3) 2,000 unit capsule Take 2,000 Units by mouth daily. Active acetaminophen (TYLENOL) 325 mg tablet Take 325 mg by mouth daily as needed for mild pain. Active psyllium (METAMUCIL) Powd Take by mouth daily as needed. Active polyethylene glycol (MIRALAX) 17 gram/dose powder Take 17 g by mouth daily. 17 g 3 05/28/20 22 Active Additional Information Patient taking differently:17 g OralDaily as needed, Reported on 02/24/2025 Medication-Free Text Take 2 capsules by mouth 2 (two) times a day. Super 8 vegetable supplement Active blood sugar diagnostic Strp stripsIndications :DM (diabetes mellitus), type 2 1 each by See Administration Instructions route 3 (three) times a day. One Touch Ultra Blue 300 strip 01/22/20 23 Active lancets ([employer] DELSRL Global PLUS LANCET) 33 gauge MiscIndications:D M (diabetes mellitus), type 2 Inject 1 Box. into the skin every morning. Use 1 lancet as directed three times a day before meals. 300 each 2 01/22/20 23 Active docusate sodium (STOOL SOFTENER ORAL) Take 2 capsules by mouth nightly at bedtime. Active albuterol 90 mcg/actuation inhalerIndication s:Chronic obstructive pulmonary disease, unspecified COPD type Inhale 2 puffs into the lungs every 6 (six) hours as needed for wheezing (dyspnea or wheezing). 8 g 2 12/02/19 24 Active tiotropium (SPIRIVA WITH HANDIHALER) 18 mcg inhalation capsule Inhale 18 mcg into the lungs daily. Active losartan (COZAAR) 50 MG tabletIndications :Type 2 diabetes mellitus without complication, without long-term current use of insulin take 1 tablet twice a day 180 tablet 3 04/27/20 24 Active metoprolol tartrate (LOPRESSOR) 25 MG tabletIndications :Essential hypertension TAKE 1 TABLET TWICE A DAY 180 tablet 3 07/08/20 24 Active ANORO ELLIPTA 62.5-25 mcg/actuation diskus inhaler Inhale 1 puff into the lungs daily. 07/08/20 24 Active furosemide (LASIX) 20 MG tabletIndications :Congestive heart failure, unspecified HF chronicity, unspecified heart failure type Take 1 tablet (20 mg total) by mouth daily. 30 tablet 1 09/24/19 25 Active cefuroxime (CEFTIN) 500 MG tabletIndications :Other pneumonia, unspecified organism Take 1 tablet (500 mg total) by mouth 2 (two) times a day. 14 tablet 09/24/19 25 Active Additional Information Patient not taking.Reported on 02/24/2025 rosuvastatin (CRESTOR) 20 MG tabletIndications :Mixed hyperlipidemia TAKE 1 TABLET DAILY 90 tablet 3 11/15/19 25 Active omeprazole (PRILOSEC) 20 MG capsuleIndication s:Type 2 diabetes mellitus without complication, with long-term current use of insulin Take 1 capsule (20 mg total) by mouth daily. 90 capsule 3 12/29/19 25 Active metFORMIN (GLUCOPHAGE-XR) 500 MG 24 hr tabletIndications :Type 2 diabetes mellitus without complications Take 1 tablet (500 mg total) by mouth 2 (two) times a day. 180 tablet 01/05/20 25 Active escitalopram oxalate (LEXAPRO) 10 MG tabletIndications :Anxiety and depression Take 1 tablet (10 mg total) by mouth every morning. 90 tablet 3 01/08/20 25 Active ALPRAZolam (XANAX) 1 MG tabletIndications :Insomnia TAKE ONE TABLET BY MOUTH TWICE A DAY NEEDED 60 tablet 3 02/23/20 25 Active amLODIPine (NORVASC) 5 MG tabletIndications :Benign essential hypertension Take 1 tablet (5 mg total) by mouth every morning. 90 tablet 3 02/25/20 25 Active amLODIPine (NORVASC) 5 MG tabletIndications :Benign essential hypertension take 1 tablet daily 90 tablet 3 04/27/20 24 025 Disconti nued(Reo rder) Active Problems Problem Noted Date Diagnosed Date SOB (shortness of breath) 04/06/2024 Overview (05/13/2024): Dr. Johnson ordered a TTE done 02/28/24- normal LV size and systolic function. Mildly increased LV wall thickness. EF 65-70%, , diastolic function is normal. Had f/u 04/08/24- chest CT + for nodules- plan repeat in 12 month, dx with emphysema- sub optimal control advised to use her anoro consistently and f/u in 2 wee Malaise and fatigue 05/16/2018 Cardiovascular disease 11/14/2017 Encounter for screening mamm ogram for malignant neoplasm of breast 11/14/2017 Essential hypertension 11/14/2017 HTN (hypertension) 11/14/2017 Insomnia 11/14/2017 Mixed hyperlipidemia 11/14/2017 DM (diabetes mellitus), type 2 11/14/2017 Coronary artery disease 08/19/1999 Overview (08/01/2020): s/p bypass in 1999. KOHLER to LAD, radial artery to RCA, and venous graft to circumflex Encounters Date Type Department Care Team Description 02/24/2025 3:30 PM EDT Office Visit [facility] Internal Medicine [address] [place] [address] Barak Stoddard MD Pulmonary hypertension (Primary Dx); Benign essential hypertension; Atherosclerosis of coronary artery of [place] heart without angina pectoris, unspecified vessel or lesion type; Leg cramp; Dry eyes 02/19/2025 Refill [facility] Internal Medicine [address] [place] [address] Barak Stoddard MD Medication Refill 02/18/2025 Documentation [facility] Internal Medicine [address] [place] [address] Barak Stoddard MD 01/29/2025 Telephone [facility] Internal Medicine [address] [place] [address] Barak Stoddard MD Cardiology Referral 01/25/2025 Telephone [facility] Internal Medicine [address] [place] [address] Argelia Rolon RN Results 01/22/2025 Orders Only [facility] Internal Medicine [address] [place] [address] Sofia Nguyen MD 01/06/2025 Refill [facility] Internal Medicine [address] [place] [address] Barak Stoddard MD Medication Refill 01/04/2025 Refill [facility] Internal Medicine [address] [place] [address] Barak Stoddard MD Medication Refill from Last 3 Months Immunizations Immunization Administration Dates Next Due COVID-19 (Pre-06/10) Pfizer Vaccine, mRNA, PF 12/07/2020,11/14/2020 INFLUENZA, SPLIT VIRUS, TRIVALENT PF 06/21/2016, 06/16/2015 INFLUENZA, SPLIT VIRUS, TRIV ALENT W/ PRESERVATIVE IM 06/28/2014,06/12/2012 Influenza High-Dose Quadriva lent Preservative Free IM 05/27/2023,05/28/2022,05/26/2021,06/07 Influenza High-Dose Trivalen t Preservative Free IM 05/22/2019,05/16/2018 Influenza trivalent preserva tive free intradermal 05/18/2013 Influenza, Unspecified Formulation 07/03,05/10/2011,05/19/2010,05/19 Pneumococcal conjugate PCV13 11/14/2017 Pneumococcal polysaccharide PPSV23 11/18/2018, Td (adult) 5 Lf Tetanus Toxo id, PF, Adsorbed 04/19/2005 Tdap 03/20/2013 Zoster live 03/26/2013 Family History Medical History Relation Comments Hypertension Brother 1 Heart attack Brother 2 Heart disease Brother 2 Heart attack Father Heart disease Father Pulmonary fibrosis Mother Arthritis Sister 1 Asthma Sister 1 Chronic bronchitis Sister 1 Arrhythmia Sister 2 Heart attack Sister 2 Heart disease Sister 2 Atrial fibrillation Son 1 Dementia Son 1 Hypertension Son 1 Hypertension Son 2 Relation Status Comments Brother 1 Alive Brother 2 at age 44 b ack 1996 from heart attack Father at age 50 o f a heart attack Mother at age 77 d /t pulmonary fibrosis Sister 1 Alive Sister 2 (Age 75) at 75 y/o d/t heart attack Son 1 Alive Son 2 Alive Social History Tobacco Use Types Packs/Day Years Used Date Smoking Tobacco: Former Cigarettes 1.5 40 0 08/19/1967 - 08/19/2007 Smokeless Tobacco: Never Tobacco Cessation:Counseling Given: Not Answered Alcohol Use Standard Drinks/Week Comments Yes 8 (1 standard drink = 0.6 oz pur e alcohol) fireball on ice, mostly ice Child or Family Care Answer Date Record ed Do you have problems with on e of the following making it difficult for you to work, study, or receive health care? No 12/18/2021 Education Answer Date Recorded Are you interested in more education? Not on maral e 12/25/2023 Are you concerned about learning? Not on file 12/25/2023 No 12/25/2023 No 12/25/2023 Food Answer Date Recorded Within the past 6 months we worried whether our food would run out before we got money to buy more. Often True 022 Within the past 6 months the food we bought just didn't last and we didn't have enough money to get more. Sometimes True 09/2021 Residential Stability Answer Date Recor ded What is your housing situation today? I have humaira sing 12/18/2021 How many times have you move d in the past 12 months? Zero (I did not move) 12/18/2021 Paying for Meds Answer Date Recorded Do you have trouble paying for medicines? No 12/18/2021 Paying Utility Bills Answer Date Record ed Do you have trouble paying your heating or elect ricity bill? No 12/18/2021 Transportation Answer Date Recorded Has the lack of transportati on kept you from medical appointments or from getting medications? No 12/18/2021 Unemployment Answer Date Recorded Are you currently unemployed or working on a part-time or temporary basis, and looking for work? No 12/18/2021 Digital Access Answer Date Recorded No 01/08/2023 No 01/08/2023 Reliable internet access at home? Not on file 01/08/2023 Device with a working camera? Not on file Intimate Partner Violence Answer Date R ecorded Denied Basic Needs Not on file 09/22/2024 In the past 12 months have y ou been in a relationship with a person who hurts, threatens, or tries to control you? No 09/22/2024 Worried food would run out Not on file 09/22 In the past 12 months have y ou been in a relationship with a person who hurts, threatens, or tries to control you? No 09/22/2024 Comments No Sex and Gender Information Value Date Recorded Sex Assigned at Female 12/30/2019 6:48 PM EDT Legal Sex Female 10:00 PM EDT Gender Identity Female 12/30/2019 6:48 PM EDT Sexual Orientation Not on file Last Filed Vital Signs Vital Sign Reading Time Taken Comments Blood Pressure 140/72 02/24/2025 3:25 PM EDT Pulse 56 02/24/2025 3:25 PM EDT Temperature 36.2 C (97.2 F) 02/24/2025 3:25 PM EDT Respiratory Rate 21 02/24/2025 3:25 PM EDT Oxygen Saturation 96% 02/24/2025 3:25 PM EDT Inhaled Oxygen Concentration - - Weight 78.5 kg (173 lb) 02/24/2025 3:25 PM EDT Height 156.7 cm (5' 1.69 ) 02/24/2025 3:25 PM ED T Body Mass Index 31.96 02/24/2025 3:25 PM EDT Plan of Treatment Upcoming Encounters Date Type Department Care Team (Late st Contact Info) Description 06/21/2025 11:30 AM EST Office Visit [facility] Internal Medicine [address] [place] [address] Barak Stoddard MD [address] [place] [address] [email or web address] Health Maintenance Due Date Last Done Comments COLOGUARD 11/03/1996 FIT TEST 11/03/1996 FOBT 11/03/1996 SIGMOIDOSCOPY 11/03/1996 VIRTUAL COLONOSCOPY 11/03/1996 RSV VACCINE (1 - Risk 60-74 years 1-dose series) 2011 ZOSTER VACCINES (2 of 3) 05/21/2013 03/26/2013 Adult Td,Tdap Booster 03/20/2023 03/20/2013, 005 MAMMOGRAM 04/05/2024 04/05/2022, 03/19, 07/02/2012, Additional history exists COVID-19 VACCINE (2023- season) 2024 07/07/2023, 06/04/2022, 10/16/2021, Additional history exists DIABETIC EYE EXAM 02/11/2025 02/12/2024, , 11/18/2020, Additional history exists HEMOGLOBIN A1C 07/22/2025 01/20/2025, 08/, 06/13/2023, Additional history exists BLOOD PRESSURE 08/27/2025 02/24/2025 CREATININE LEVEL 01/20/2026 01/20/2025, 12/2024, 04/07/2024, Additional history exists POTASSIUM LEVEL 01/20/2026 01/20/2025, 02/0 12/2024, 04/07/2024, Additional history exists DEPRESSION SCREENING 02/24/2026 02/24/2025, 02/25/20 25 COLONOSCOPY 06/19/2029 06/19/2019, 07/29/2013 COLORECTAL CANCER SCREENING 06/19/2029 PNEUMOCOCCAL VACCINES (50+ years) Completed 11/18/2018, 11/14/2017, 04/19/2005 HEPATITIS C SCREENING Completed 01/29/2020 OSTEOPOROSIS SCREENING INITIAL (ONE-TIME) Completed 04/05/2022, 02/29/2020, 05/23/2006 SMOKING STATUS SCREENING (Once After 26 Yrs) Completed 02/24/2025 HEPATITIS A VACCINES Aged Out No long er eligible based on patient's age to complete this topic HIB VACCINES Aged Out No longer eligi ble based on patient's age to complete this topic MENINGOCOCCAL VACCINES (ACWY) Aged Out No longer eligible based on patient's age to complete this topic MENINGOCOCCAL VACCINES (B) Aged Out N o longer eligible based on patient's age to complete this topic Medical Devices Not on file Procedures Procedure Name Priority Date/Time Associated Diagnosis Comments OUTSIDE LAB Routine 01/20/2025 10:49 AM EDT OUTSIDE POTASSIUM LEVEL Routine 01/20/2025 OUTSIDE HEMOGLOBIN A1C Routine 01/20/2025 OUTSIDE TSH LEVEL Routine 01/20/2025 OUTSIDE ALT LEVEL Routine 01/20/2025 OUTSIDE SERUM CREATININE LEVEL Routine 01/20/2025 DIABETES EYE EXAM FOR RESULT ENTRY ONLY Routine 02/12/2024 11:17 AM EDT HM MAMMOGRAPHY Routine 04/05/2022 HM DEXA SCAN Routine 04/05/2022 HEPATITIS C ANTIBODY, QUALITATIVE Routine 01/29/2020 COLONOSCOPY FOR RESULT ENTRY ONLY Routine 06/19/2019 from Last 3 Months or Most Recently Relevant to Health Maintenance Results * Outside Lab (01/20/2025 10:49 AM EDT) Result [facility] Provider LAB BLOOD ORDERABLES Va l Result * Outside TSH Level (01/20/2025) TSH - External 1.89 0.5 - 5 uIU/L Result [facility] LAB BLOOD ORDERABLES [facility] l Result * Outside Potassium Level (01/20/2025) Potassium level - External 4.1 3.4 - 5.0 mmol/L Result [facility] LAB BLOOD ORDERABLES Va l Result * Outside HbA1c (01/20/2025) Hemoglobin A1c - External 7.8 % Result [facility] LAB BLOOD ORDERABLES Va l Result * (ABNORMAL) Outside Serum Creatinine Level (01/20/2025) Creatinine, serum - External 0.56(A) 0.8 - 1.3 mg/dL Result [facility] LAB BLOOD ORDERABLES Va l Result * Outside ALT Level (01/20/2025) ALT - External 26 5 - 30 U/L Result [facility] LAB BLOOD ORDERABLES Va l Result * HM DIABETES EYE EXAM FOR RESULT ENTRY ONLY (02/12/2024 11:17 AM EDT) Result [facility] Provider HEALTH MAINTENANCE Edited Result - Final * DEXA SCAN (04/05/2022) Result [facility] Wendy DOOLEY HEALTH MAINTENANCE Edited Result - Final * MAMMOGRAPHY FOR RESULT ENTRY ONLY (04/05/2022) Historical Provider HEALTH MAINTENANCE Edited Result - Final * Hepatitis C antibody, qualitative (01/29/2020) Barak Stoddard MD LAB BLOOD ORDERABLES Edited R esult - Final * COLONOSCOPY FOR RESULT ENTRY ONLY (06/19/2019) Historical Provider HEALTH MAINTENANCE Edited Result - Final from Last 3 Months or Most Recently Relevant to Health Maintenance [place] BL[place] REPLACEMENT [facility] MEDICARE HMO BLUE [place] [address] [place] [address] MEDICARE HMO BLUE REPLACEMENT [facility] MEDICARE HMO BLUE [place] [address] [place] [address] MEDICARE HMO BLUE REPLACEMENT [facility] MEDICARE HMO BLUE REPLACEMENT [facility] MEDICARE HMO BLUE REPLACEMENT [facility] MEDICARE HMO BLUE REPLACEMENT Advance Directives For more information, please contact: [phone] (9AM - 5PM [facility], Saturday-Saturday) Documents on File Type Date Recorded Patient Manual Tester Expl carmen [email or web address] 05/22/2019 completed Care Teams Derrick Builder Relationship Specialty Start Date End Date Barak Stoddard MD [address] [place] [id number] [email or web address] - General 06/03/17 Uriel Solares MD [address] [place] [address] [address] [place] [address] Ophthalmology 12/07/19 Cisco Bangura MD [address] [place] [address] [address] [place] [id number] Gastroenterology 12/07/19 Elizabeth Pulliam DO [address] [place] [phone] Internal Medicine 06/07/20 Albin Vasquez MD [address] [place] [address] [address] [place] [address] Cardiology 05/04/24 Additional Source Comments The information contained in this document represents components of the legal health record. It is not the complete legal health record.[facility]
== END 2025-03-24 13:51 | disposition home or self-care (01) ==
LOC: HO.HPS 13:27
PROVIDERS: PCP Internal Medicine; Visit Provider Internal Medicine Pulmonary Disease
DX: J43.9 Emphysema, unspecified (principal); J84.10 Pulmonary fibrosis, unspecified; Z99.81 Dependence on supplemental oxygen
CPT/HCPCS: 99214; G2211

== ENCOUNTER → 2025-03-24 13:27 | Outpatient (BNVA) | payer MEDICARE, SELFPAY | PROVIDERS: PCP Internal Medicine; Visit Provider Internal Medicine Pulmonary Disease | DX: J84.10 Pulmonary fibrosis, unspecified (principal); J43.9 Emphysema, unspecified; Z99.81 Dependence on supplemental oxygen | CPT/HCPCS: 99212 ==

== ENCOUNTER 2025-06-15 13:30 | Outpatient (RCR) | payer MEDICARE, SELFPAY | END 2025-06-24 13:38 | disposition home or self-care (01) | LOC: HO.PR 13:30 | PROVIDERS: PCP Internal Medicine; Visit Provider Internal Medicine Pulmonary Disease | DX: J84.10 Pulmonary fibrosis, unspecified (principal) | CPT/HCPCS: 94618; 94625; 99212; G0237; G0239 ==

== ENCOUNTER 2025-07-09 13:02 | Outpatient (AMB) | payer MEDICARE, SELFPAY ==
--- NOTE | 2025-07-09 13:05 | A.OFFVIS_ITS ---
Vital Signs 07/09/25 13:06 Height 5 ft 1 in Weight 176 lb BMI 33.3 BP 104/40 L Blood Pressure Location Lt brachial Position Sitting Pulse 62 Pulse Source Pulse Oximeter Pulse Oximetry (%) 90 L Oxygen Delivery Method Nasal Cannula Oxygen Flow Rate 2 Intake Visit Reasons: Dyspnea Allergies cimetidine (From TAGAMET) Allergy (Unknown, Verified 10/06/24 14:48) HIVES HPI HPI Dyspnea: Details: 74-year-old lady, former 100+ pack-year smoker, quit 2007 at the time of CABG, now followed for pulmonary emphysema and pulmonary fibrosis on supplemental oxygen at 2-3 L continuous flow. Patient continues on Anoro and albuterol MDI/nebs with reasonable symptom control. She did complete her 2D echocardiogram that shows moderate pulmonary hypertension. Her CT chest shows pulmonary emphysema and pulmonary fibrosis. Her pulmonary function test shows underlying moderate restrictive ventilatory defect. Today she complains of cough productive of whitish sputum that is getting worse. [facility] Medical History Diabetes Hyperlipidemia HTN (hypertension) CAD (coronary artery disease) Exertional angina Surgical History Hx of colonoscopy Hx of CABG Hx of cardiac cath Family History Father CVD (cardiovascular disease) Mother No problems noted. Brother CVD (cardiovascular disease) Social History Patient Tobacco Use Status: Former Tobacco user Tobacco use type: Cigarette Years Smoked: quit 2007, started at 17, 2ppd Review of Systems Const Denies daytime sleepiness, Denies excessive sweating, Denies fatigue, Denies fever(s), Denies lethargy, Denies malaise, Denies night sweats, Denies snoring and Denies weight loss Eyes Denies blurry vision and Denies itchy eyes ENT Denies nasal congestion, Denies post nasal drip, Denies sinus pain, Denies sinus pressure and Denies other ( Thrush) Card Denies chest pain, Denies pedal edema, Denies dyspnea, Denies orthopnea and Denies paroxysmal nocturnal dyspnea Resp Denies cough, Denies hemoptysis, Denies excessive phlegm production, Denies dyspnea, Denies snoring and Denies wheezing GI Denies abdominal pain and Denies heartburn Musc Denies myalgias, Denies arthralgias and Denies joint swelling Skin/Breast Denies rash Neuro Denies memory loss and Denies seizure-like activity Psych Denies abnormal sleep pattern, Denies anxiety and Denies memory loss Endo Denies excessive sweating, Denies fatigue and Denies heat intolerance Anatoly/Lymph Denies easy bruising Aller/Immun Denies itchy eyes, Denies seasonal rhinorrhea and Denies wheezing Physical Exam Vital Signs: Last Vital Signs Pulse 62 07/09/25 13:06 BP 104/40 L 07/09/25 13:06 Pulse Ox 90 L 07/09/25 13:06 Oxygen Delivery Method Nasal Cannula 07/09/25 13:06 Oxygen Flow Rate 2 07/09/25 13:06 BMI result Body Mass Index 33.3 Const General: no acute distress and alert Nutritional Appearance: obese Orientation/consciousness: Other orientation findings ( oriented) HEENT Head: Yes atraumatic Eyes General: appearance normal, both eyes and all related structures Sclerae: sclerae normal EOM: EOMs intact bilaterally Neck Neck: Yes supple Lymphatic: no lymphadenopathy noted Resp Effort & Inspection: normal respiratory effort and no use of accessory muscles Auscultation: clear to auscultation bilaterally Cardio Rate: regular rate Rhythm: regular rhythm Heart sounds: no gallops, no murmurs and no rubs Skin General skin exam: other ( warm) Extrem General: No clubbing, No cyanosis and No edema Assessment & Plan Assessment & Plan (1) Emphysema of lung: Code(s): J43.9 - Emphysema, unspecified Category: Medical (2) Pulmonary fibrosis: Code(s): J84.10 - Pulmonary fibrosis, unspecified Category: Medical (3) Supplemental oxygen dependent: Code(s): Z99.81 - Dependence on supplemental oxygen Category: Medical Plan Combined pulmonary emphysema and fibrosis now controlled current regimen of Anoro, albuterol MDI/nebs. Continues on supplemental oxygen to maintain O2 saturation above 88%. Also, with an acute exacerbation, will treat with a course of Levaquin. Medications: New levofloxacin 750 mg PO DAILY 7 tabs 0RF Coding Level of Care Code Complex visit Add On G2211 Diagnoses Emphysema of lung J43.9 Pulmonary fibrosis J84.10 Supplemental oxygen dependent Z99.81
[2025-07-09 13:06] VITALS: BP 104/40; PULSE 62; O2SAT 90; BMI 33.3
--- OUTSIDE RECORDS SUMMARY | 2025-07-09 13:25 | XMS_ITS | Patient Health Record ---
Author Organization [facility] Address [address] [place] [address] Care Team Providers Care Central Sterile Tech Name Role Phone Barak Stoddard MD Primary Care Provider Arturo Ibanez Unavailable [phone] Allergies Allergen (clinical drug ingredient) Drug/Non Drug [...] tablet Orally Once a day Not-Taking Acid Group Fitness Instructor 10 MG 1 tablet as needed Orally [...] Status W/U Status Risk Notes Problem Bursitis (53023353) Bursitis (727.3) Active confirmed Problem Neurologic disorder associated with type II diabetes mellitus (431274869) Diabetic - NIDDM/Neuropat hy (250.60) Active confirmed Problem Hallux valgus (705732880) Hallux Valgus (735.0) Active confirmed Problem Myositis (56558084) Myositis (729.1) Active confirmed Problem Pain in limb (83075432) Pain in Limb (729.5) Active confirmed Problem Plantar fasciitis (489482063) Plantar Fasciitis (728.71) Active confirmed Problem Calcaneal spur (22861790) Calcaneal spur (726.73) Active confirmed Plan Of Treatment Pending Test Test Name Order Date X ray : Foot, right 2V 02/04/2014 Insurance Providers Payer Name Payer Address Payer Phone Subscriber Number Group Number Insured Name Patient Relationship to Insured Coverage Start Date Coverage End Date Medicare National [employer] [address] [place] [address] [phone] [id number] Lenabill Nikkie Self - patient is the insured [facility] [address] [place] [address] [phone] [id number] Lenabill Nikkie Self - patient is the insured Medical (General) History Medical History History ICD Code Anxiety Back,Hip,and Knee pain Broken bones Cancer Depression type II diabetes Heart disease High blood pressure Sciatica Measles Mumps Chicken pox Hyperthyroidism Hypercholesterolemia Hyperlipidemia Osteopenia Angina CAD (Cholesterol) Surgical History Surgery Date(Month/Year) coli-rectal cancer 1997 triple bypass 1999
--- OUTSIDE RECORDS SUMMARY | 2025-07-09 13:25 | XMS_ITS | Patient Health Record ---
Author Organization [facility] Address [address] [place] [id number] Care Team Providers Care Mortgage Loan Specialist Name Role Phone Barak Stoddard MD Primary Care Provider Cisco Sorensen Jr Unavailable [phone] Allergies Allergen (clinical drug ingredient) Drug/Non Drug Allergy documented on EMR Reaction Allergy Type Onset Date Status cimetidine Tagamet HB Unknown Drug Allergy Activ e Reason For Referral No Information Medications Medication SIG (Take, Route, Frequency, Duration) Notes Start Date End Date Status Vitamin D 1000 UNIT Tablet 1 tablet Oral ly Once a day Active ALPRAZolam 1 MG Tablet 1 tablet Orally T wice a day Active Fish Oil 1200 MG Capsule 1 capsule Orall y Once a day Active Losartan Potassium 50 MG Tablet 1 tablet Orally Once a day Active Tylenol 325 MG Tablet 1 tablet as needed Orally every 4 hrs Active Aspirin 81 MG Tablet Chewable 1 tablet Orally Once a day Active Ranitidine HCl 150 MG Capsule 1 capsule at bedtime Orally prn Active metFORMIN HCl 500 MG Tablet 1 tablet wit h a meal Orally twice a day Active Metoprolol Tartrate 25 MG Tablet 1 tablet with food Orally Twice a day Active Rosuvastatin Calcium 20 MG Tablet 1 tablet Orally Once a day; Duration: 30 day(s) Active Tums 500 MG Tablet Chewable 1 tablet Orally prn Active Magnesium 400 MG Tablet 1 tablet Orally Once a day Active Isosorbide Mononitrate ER 30 MG Tablet Extended Release 24 Hour 1 tablet in the morning Orally Once a day; Duration: 30 day(s) Active Immunizations Vaccine Route Administration Date Status Comme nts Influenza Unknown 06/25/2018 Administered Social History Tobacco Use: Social History Observation Description Date Details (start date - stop date) Former Smoker NA - NA Social History Tobacco Use: Social Info Question Answer Notes Tobacco Use/Smoking Patient is a former smoker How long has it been since you last smoked? > 10 years Additional Details Category Social Info Options Details Miscellaneous: Marital status: Occupation: retired Problems Problem Type SNOMED Code ICD Code Onset Dates Problem Status W/U Status Risk Notes Problem Colon cancer screening (041273878) Colon cancer screening (Z12.11) Active confirmed Problem Change in bowel habit (39394106) Change in bowel habit (R19.4) Active confirmed Problem Essential hypertension (08362289) Hypertension, unspecified type (I10) Active confirmed Plan Of Treatment Future Test Test Name Order Date COLONOSCOPY 05/30/2012 COLONOSCOPY 02/06/2019 Insurance Providers Payer Name Payer Address Payer Phone Subscriber Number Group Number Insured Name Patient Relationship to Insured Coverage Start Date Coverage End Date O BLUE BCBS PROFESSIONAL CLAIMS [address] [place] [address] [id number] ZANA MERCEDES Self - patient is the insured Medicare of [place] SECONDARY [address] [place] [address] [id number] ZANA MERCEDES Self - patient is the insured Medical [...]
--- OUTSIDE RECORDS SUMMARY | 2025-07-09 13:25 | XMS_ITS | Clinical Summary ---
Author Organization [facility] Address [address] [address] Phone Care Team Providers Care Fibre Cement Moulder Name Role Phone Barak Stoddard MD Primary Care Provider [phone] Uriel Solares MD Unavailable Cisco Bangura MD Unavailable Elizabeth Pulliam DO Unavailable [phone] Albin Vasquez MD Unavailable [phone] Allergies Active Allergy Reactions Criticality Noted Date [...] Active Additional Information Patient not taking.Reported on 06/21/2025 cholecalciferol (VITAMIN D3) 2,000 unit capsule Take [...] differently:17 g OralDaily as needed, Reported on 06/21/2025 blood sugar diagnostic Strp stripsIndications :DM (diabetes mellitus), type 2 1 each by See Administration Instructions route 3 (three) times a day. One Touch Ultra Blue 300 strip 01/22/20 23 Active lancets ([employer] DELICA PLUS LANCET) 33 gauge MiscIndications:D M (diabetes [...] 18 mcg into the lungs daily. Active metoprolol tartrate (LOPRESSOR) 25 MG tabletIndications [...] Active Additional Information Patient not taking.Reported on 06/21/2025 rosuvastatin (CRESTOR) 20 MG tabletIndications :Mixed hyperlipidemia TAKE 1 TABLET DAILY 90 tablet 3 11/15/19 25 Active omeprazole (PRILOSEC) 20 MG capsuleIndication s:Type 2 diabetes mellitus without complication, with long-term current use of insulin Take 1 capsule (20 mg total) by mouth daily. 90 capsule 3 12/29/19 25 Active escitalopram oxalate (LEXAPRO) 10 MG [...] morning. 90 tablet 3 02/25/20 25 Active losartan (COZAAR) 50 MG tabletIndications :Type 2 diabetes mellitus without complication, without long-term current use of insulin TAKE 1 TABLET TWICE A DAY 180 tablet 2 05/05/20 25 Active metFORMIN (GLUCOPHAGE-XR) 500 MG 24 hr tabletIndications :Type 2 diabetes mellitus without complications Take 1 tablet (500 mg total) by mouth 2 (two) times a day. 180 tablet 1 05/17/20 25 Active Medication-Free Text Take 2 capsules by mouth 2 (two) times a day. Super 8 vegetable supplement 025 Disconti nued(No longer taking) Active Problems Problem Noted Date Diagnosed Date [...] Encounters Date Type Department Care Team Description 06/22/2025 Telephone [facility] Internal Medicine [address] [facility] [place] [address] Barak Stoddard MD Referral (Requesting an Insurance Referral for BCBS with [facility]) 06/21/2025 11:30 AM EST Office Visit [facility] Internal Medicine [address] [facility] [place] [address] Barak Stoddard MD Need for prophylactic vaccination and inoculation against influenza (Primary Dx); Type 2 diabetes mellitus without complication, with long-term current use of insulin; Benign essential hypertension; ACP (advance care planning) 06/17/2025 Documentation [facility] Internal Medicine [address] [place] [address] Barak Stoddard MD 05/17/2025 Refill [facility] Internal [facility] [address] [facility] [place] [address] Barak Stoddard MD Medication Refill 05/07/2025 Orders Only [facility] Internal Medicine [address] [facility] [place] [address] Sofia Nguyen MD 05/05/2025 Refill [facility] Internal Medicine [address] [facility] [place] [address] Barak Stoddard MD Medication Refill from Last 3 Months Immunizations Immunization Administration Dates Next Due COVID-19 (Pre-06/10) Pfizer Vaccine, mRNA, PF 12/07/2020,11/14/2020 INFLUENZA, SPLIT VIRUS, TRIVALENT PF 06/21/2016, 06/16/2015 INFLUENZA, SPLIT VIRUS, TRIV ALENT W/ PRESERVATIVE IM 06/28/2014,06/12/2012 Influenza High-Dose Quadriva lent Preservative Free IM 05/27/2023,05/28/2022,05/26/2021,06/07 Influenza High-Dose Trivalen t Preservative Free IM 06/21/2025,05/22/2019,05/16/2018 Influenza trivalent preserva tive free intradermal 05/18/2013 [...] got money to buy more. Often True 05/02/2 022 Within the past 6 months the food we bought just didn't last and we didn't have enough money to get more. Sometimes True 09/2021 Residential Stability Answer Date Recor ded What is your housing situation today? I have humaira burgos 12/18/2021 How many times have you move [...] Sign Reading Time Taken Comments Blood Pressure 130/68 06/21/2025 12:43 PM EST Pulse 81 06/21/2025 11:40 AM EST 2L o 2 Temperature 36.7 C (98 F) 06/21/2025 11:40 AM EST Respiratory Rate 16 06/21/2025 11:40 AM EST Oxygen Saturation 92% 06/21/2025 11:40 AM EST 2L o2 Inhaled Oxygen Concentration - - Weight 78.2 kg (172 lb 6.4 oz) 06/21/2025 11:40 AM EST Height 156.7 cm (5' 1.69 ) 06/21/2025 11:[address] Body Mass Index 31.85 06/21/2025 11:40 AM EST Plan of Treatment Upcoming Encounters Date Type Department Care Team (Late st Contact Info) Description 09/22/2025 11:30 AM EST Office Visit [facility] Internal Medicine [address] [place] [address] Barak Stoddard MD [address] [place] [address] [email or web address] Health Maintenance Due Date Last Done Comments COLOGUARD 11/03/1996 FIT TEST 11/03/1996 FOBT 11/03/1996 SIGMOIDOSCOPY 11/03/1996 VIRTUAL COLONOSCOPY 11/03/1996 RSV VACCINE (1 - Risk 50-74 years 1-dose series) 11/03/2001 ZOSTER VACCINES (2 of 3) 05/21/2013 03/26/2013 Adult Td,Tdap Booster 03/20/2023 03/20/2013, 005 MAMMOGRAM 04/05/2024 04/05/2022, 03/19, 07/02/2012, Additional history exists COVID-19 VACCINE ( season) 2025 07/07/2023, 06/04/2022, 10/16/2021, Additional history exists HEMOGLOBIN A1C 07/22/2025 01/20/2025, 03/20, 06/13/2023, Additional history exists BLOOD PRESSURE 12/19/2025 06/21/2025 CREATININE LEVEL 01/20/2026 01/20/2025, 12/2024, 04/07/2024, Additional history exists POTASSIUM LEVEL 01/20/2026 01/20/2025, 02/0 12/2024, 04/07/2024, Additional history exists DEPRESSION SCREENING 02/24/2026 02/24/2025, 02/25/20 25 DIABETIC EYE EXAM 04/20/2026 04/20/2025, , 02/12/2024, Additional history exists COLONOSCOPY 06/19/2029 06/19/2019, 07/29/2013 COLORECTAL CANCER SCREENING 06/19/2029 PNEUMOCOCCAL VACCINES (50+ years) Completed 11/18/2018, 11/14/2017, 04/19/2005 HEPATITIS C SCREENING Completed 01/29/2020 OSTEOPOROSIS SCREENING INITIAL (ONE-TIME) Completed 04/05/2022, 02/29/2020, 05/23/2006 INFLUENZA VACCINE Completed 06/21/2025, , 05/28/2022, Additional history exists SMOKING STATUS SCREENING (Once After 26 Yrs) Completed 06/21/2025 HEPATITIS A VACCINES Aged Out No long er eligible based on patient's age to complete this topic HIB VACCINES Aged Out No longer eligi ble based on patient's age to complete this topic IPV VACCINES Aged Out No longer eligi ble based on patient's age to complete this topic MENINGOCOCCAL VACCINES (ACWY) Aged Out No longer eligible based on patient's age to complete this topic MENINGOCOCCAL VACCINES (B) Aged Out N o longer eligible based on patient's age to complete this topic Medical Devices Not on file Procedures Procedure Name Priority Date/Time Associated Diagnosis Comments DIABETES EYE EXAM FOR RESULT ENTRY ONLY Routine 04/20/2025 1:41 PM EDT DIABETES EYE EXAM FOR RESULT ENTRY ONLY Routine 04/20/2025 OUTSIDE HEMOGLOBIN A1C Routine 01/20/2025 OUTSIDE POTASSIUM LEVEL Routine 01/20/2025 OUTSIDE SERUM CREATININE LEVEL Routine 01/20/2025 MAMMOGRAPHY Routine 04/05/2022 HM DEXA SCAN Routine 04/05/2022 HEPATITIS C ANTIBODY, QUALITATIVE Routine 01/29/2020 COLONOSCOPY FOR RESULT ENTRY ONLY Routine 06/19/2019 from Last 3 Months or Most Recently Relevant to Health Maintenance Results * DIABETES EYE EXAM FOR RESULT ENTRY ONLY (04/20/2025 1:41 PM EDT) Only the most recent of2 resultswithin the time period is included. Result [employer] Provider HEALTH MAINTENANCE Final Result * Outside Potassium Level (01/20/2025) Potassium level - External 4.1 3.4 - 5.0 mmol/L Result [facility] LAB BLOOD ORDERABLES [facility] Result * Outside HbA1c (01/20/2025) Hemoglobin A1c - External 7.8 % Result [facility] LAB BLOOD ORDERABLES [facility] Result * (ABNORMAL) Outside Serum Creatinine Level (01/20/2025) Creatinine, serum - External 0.56(A) 0.8 - 1.3 mg/dL Result [facility] LAB BLOOD ORDERABLES Va [facility] Result * HM DEXA SCAN (04/05/2022) Result [facility] Wendy DOOLEY HEALTH MAINTENANCE Edited Result - Final * HM MAMMOGRAPHY FOR RESULT ENTRY ONLY (04/05/2022) Result [facility] Wendy DOOLEY HEALTH MAINTENANCE Edited Result - Final * Hepatitis C antibody, qualitative (01/29/2020) Result [facility] Barak Stoddard MD LAB BLOOD BKR ORDERABLES Edit ed Result - Final * HM COLONOSCOPY FOR RESULT ENTRY ONLY (06/19/2019) Result [employer] [facility] [employer] Wendy DOOLEY HEALTH MAINTENANCE Edited Result - Final from Last 3 Months or Most Recently Relevant to Health Maintenance Insurance [place] BLUE REPLACEMENT MEDICARE HMO BLUE [place] [address] [place] [address] MEDICARE HMO BLUE [place]AC[place] [address] MEDICARE HMO BLUE REPLACEMENT MEDICARE HMO BLUE [place]AC[place] [address] MEDICARE HMO BLUE [place] [address] MEDICARE HMO BLUE REPLACEMENT [place] BL[place] REPLAC[place] BLUE REPLACEMENT Advance Directives For more information, please contact: [phone] (9AM - 5PM [facility], Saturday-Saturday) Documents on File Type Date Recorded 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 [facility] [place] [id number] Ophthalmology 12/07/19 Cisco Bangura MD [address] [facility] [address] [place] [id number] Gastroenterology 12/07/19 Elizabeth Pulliam DO [address] [place] [address] Internal Medicine 06/07/20 Albin Vasquez MD [address] [place] [address] Cardiology 05/04/24 Additional Source Comments The information contained in this document represents components of the legal health record. It is not the complete legal health record.[facility]
== END 2025-07-09 13:28 | disposition home or self-care (01) ==
PROVIDERS: PCP Internal Medicine; Visit Provider Internal Medicine Pulmonary Disease
DX: J43.9 Emphysema, unspecified (principal); J84.10 Pulmonary fibrosis, unspecified; Z99.81 Dependence on supplemental oxygen
CPT/HCPCS: 99214; G2211

== ENCOUNTER → 2025-07-09 13:02 | Outpatient (BNVA) | payer MEDICARE, SELFPAY | PROVIDERS: PCP Internal Medicine; Visit Provider Internal Medicine Pulmonary Disease | DX: J43.9 Emphysema, unspecified (principal); J84.10 Pulmonary fibrosis, unspecified; Z87.891 Personal history of nicotine dependence; Z99.81 Dependence on supplemental oxygen | CPT/HCPCS: 99212 ==